=== PATIENT | female | born 1930 | race Caucasian/White ===

== ENCOUNTER 2017-07-26 16:02 | Inpatient (IN) ==
[2017-07-26] MEDS ORDERED: Ipratropium/Albuterol Neb 3 ML IH ONE (17:03)
--- NOTE | 2017-07-26 17:06 | Emergency Department Note ---
Disposition Clinical Impression: Hypoxia Pneumonia Qualifiers: Pneumonia type: due to unspecified organism Laterality: right Lung location: upper lobe of lung Qualified Code(s): J18.1 - Lobar pneumonia, unspecified organism Disposition: Admitted As Inpatient Condition: Fair Referrals: Otilia Coffey DO [Primary Care Provider] - Forms: ED Satisfaction Letter Time of Disposition: 18:09 SOB HPI - General Chief Complaint: ED Recheck/Abnormal Lab/Rx Stated Complaint: low o2 at pcp office Time Seen by Provider: 07/26/17 16:59 Source: patient Mode of arrival: wheelchair Limitations: no limitations Nursing Notes Reviewed: Yes Vital Signs Reviewed: Yes - History of Present Illness 87-year-old with no previous lung history although she does have a extensive smoking history comes in complaining of a low pulse ox. Seen by the family doctor for a routine visit and found to have a pulse ox in the 80s. Placed on oxygen sent over for evaluation. 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 Context: recent illness Severity: moderate Consistency/Duration: constant Improves with: oxygen Worsens with: exertion Associated symptoms: Reports: denies other symptoms Treatment prior to arrival: oxygen - Related Data Home Medications Medication Instructions Recorded Confirmed Ascorbic Acid [Vitamin C] 1,000 mg PO DAILY 08/27/15 07/09/17 Calcium Carbonate/Vitamin D3 1 each PO DAILY 08/27/15 07/09/17 [Calcium 600 + Vit D Softgel] LORazepam [Ativan] 1 mg PO Q6-8H PRN 08/27/15 07/09/17 Lisinopril [Zestril] 10 mg PO BID 08/27/15 07/09/17 Multivit-Min/FA/Lycopen/Lutein 1 each PO DAILY 08/27/15 07/09/17 [Centrum Silver Tablet] Polyethylene Glycol 3350 [MiraLAX] 17 gm PO DAILY PRN 08/27/15 07/09/17 Mirtazapine 7.5 mg PO HS 03/26/17 07/09/17 Clopidogrel [Plavix] 75 mg PO DAILY 05/01/17 07/09/17 Previous Rx's Medication Instructions Recorded Benzonatate [Tessalon] 100 mg PO TID PRN #90 capsule 07/09/17 Albuterol Sulfate [Albuterol 1 puff IH Q4HR #1 inhaler 11/14/17 Inhaler] Allergies Allergy/AdvReac Type Severity Reaction Status Date / Time acetaminophen [From Percocet] Allergy Agitated Verified 06/07/17 15:56 metronidazole [From Flagyl] Allergy Agitated Verified 06/07/17 15:56 Oxycodone [From Percocet] Allergy Agitated Verified 06/07/17 15:56 codeine AdvReac See Verified 06/07/17 15:56 Comments All systems ED: reviewed and negative except as stated. Constitutional: Denies: fever, chills, weakness, weight change Eyes: Denies: eye pain, eye discharge, vision change ENT ED: Denies: ear pain, throat pain, dental pain, hearing loss, epistaxis, congestion, dysphagia Cardiovascular: Denies: chest pain, palpitations, dyspnea on exertion, edema, syncope Respiratory: Reports: cough, dyspnea. Denies: wheezes, hemoptysis, stridor Gastrointestinal: Denies: abdominal pain, nausea, vomiting, diarrhea, constipation, hematemesis, melena, hematochezia Genitourinary: Denies: dysuria, frequency, hematuria, discharge Musculoskeletal: Denies: back pain, neck pain, arthralgia, myalgia Integumentary: Denies: rash, abrasion, lesions Neurological: Denies: headache, weakness, numbness, paresthesias, confusion, abnormal gait, vertigo Psychiatric: Denies: anxiety, depression, suicidal thoughts, homicidal thoughts , auditory hallucinations, visual hallucinations Endocrine: Denies: fatigue Hematological/Lymphatic: Denies: easy bleeding, easy bruising Allergic/Immunologic: Denies: facial swelling, urticaria Past Medical History - Past Medical History Medical history: Reports: cancer, diabetes, GERD, hypertension, peripheral artery disease, renal disease, other Surgical history: Reports: carotid endarterectomy, hip replacement Psychiatric history: Reports: anxiety - Social History Smoking Status: Never smoker Smokeless Tobacco Status: No Alcohol use: Reports: none Drug use: Reports: none Physical Exam - General Limitations: no limitations General appearance: alert, in no apparent distress - Head Head exam: atraumatic, normocephalic, normal inspection - Eye Eye exam: Present: normal appearance, PERRL, EOMI - ENT ENT exam: normal exam, normal oropharynx, mucous membranes moist - Neck Neck exam: Present: normal inspection, full ROM, trachea midline - Chest Chest inspection: Present: normal inspection, symmetric chest wall rise - Respiratory Respiratory exam: Present: wheezes - Cardiovascular Cardiovascular exam: Present: regular rate, normal rhythm, normal heart sounds - Abdominal Exam Abdominal exam: Present: soft, Non-Tender. Absent: tenderness, distention, guarding, rebound, rigidity - Extremities Exam Extremities exam: Present: normal inspection, full ROM. Absent: tenderness, pedal edema - Expanded Lower Extremity Exam Neurovascular/Tendon exam: Absent: motor deficit, sensory deficit, tendon deficit Gait: not tested/not observed - Back Exam Back exam: Present: normal inspection, full ROM. Absent: tenderness - Neurological Exam Neurological exam: Present: alert, oriented X3 - Psychiatric Psychiatric exam: Present: normal affect, normal mood - Skin Skin exam: Present: warm, dry, intact, normal color Course - Reevaluation(s) Reevaluation #1: 87-year-old who was seen in the office today was found to be hypoxic with a pulse ox in the mid 80s. Workup here included a chest x-ray that shows a right upper lobe infiltrate. Patient's pulse ox on 2 L was mid 90s. She will be admitted for further evaluation and treatment. Time: 18:08 - Consultations Consultation #1: Discussed with prakash Palmer. Time: 18:32 Vital Signs Temperature 98.7 F 07/26/17 16:06 Pulse Rate 90 07/26/17 16:06 Respiratory Rate 16 07/26/17 16:06 Blood Pressure 152/81 07/26/17 16:06 O2 Sat by Pulse Oximetry 100 07/26/17 16:06 Temperature 98.7 F 07/26/17 16:06 Pulse Rate 77 07/26/17 18:03 Respiratory Rate 14 07/26/17 18:03 Blood Pressure 129/84 07/26/17 18:03 O2 Sat by Pulse Oximetry 100 07/26/17 18:03 Oxygen Delivery Oxygen Delivery Nasal Cannula Shortness of Breath/Dyspnea - Lab Data Lab results reviewed: Yes I reviewed the patient's lab results. Result diagrams: 07/26/17 17:27 07/26/17 17:27 Lab Results 07/26/17 07/26/17 07/26/17 Range/Units 17:27 17:27 17:27 WBC 18.7 H (4.3-11.1) K/mcL RBC 3.60 L (3.82-4.97) M/mcL Hgb 9.3 L (11.5-15.4) g/dL Hct 31.3 L (35.3-44.9) % MCV 86.9 (83.0-100.0) fL MCH 25.8 L (28.0-33.3) pg MCHC 29.7 L (31.6-35.5) g/dL RDW 16.8 H (11.5-14.5) % Plt Count 431 H (140-400) K/mcL MPV 10.2 (9.4-12.4) fL Immature Gran % 1.3 (0-4) % Seg Neutrophils % 88.2 % Lymphocytes % 4.7 % Monocytes % 5.4 % Eosinophils % 0.2 % Basophils % 0.2 % Neutrophils # 16.5 H (1.6-8.9) K/mcL Lymphocytes # 0.9 (0.6-4.6) K/mcL Monocytes # 1.0 (0.0-1.3) K/mcL Eosinophils # 0.0 (0.0-0.6) K/mcL Basophils # 0.0 (0.0-0.2) K/mcL Sodium 138 (136-145) mEq/L Potassium 2.7 L (3.5-4.5) mEq/L Chloride 98 (98-109) mEq/L Carbon Dioxide 29 (19-29) mEq/L BUN 19 (7-20) mg/dL Creatinine 0.80 (0.57-1.11) mg/dL Est GFR ( Amer) > 60 (> 60) Est GFR (Non-Af Amer) > 60 (> 60) BUN/Creatinine Ratio 24 (6-26) Glucose 95 (70-99) mg/dL Calculated Osmolality 288 (280-300) Lactic Acid 1.9 (0.5-2.2) mmol/L Calcium 8.7 (8.6-10.8) mg/dL Troponin I (0-0.03) ng/mL B-Natriuretic Peptide (0-100) pg/mL 07/26/17 07/26/17 Range/Units 17:27 17:27 WBC (4.3-11.1) K/mcL RBC (3.82-4.97) M/mcL Hgb (11.5-15.4) g/dL Hct (35.3-44.9) % MCV (83.0-100.0) fL MCH (28.0-33.3) pg MCHC (31.6-35.5) g/dL RDW (11.5-14.5) % Plt Count (140-400) K/mcL MPV (9.4-12.4) fL Immature Gran % (0-4) % Seg Neutrophils % % Lymphocytes % % Monocytes % % Eosinophils % % Basophils % % Neutrophils # (1.6-8.9) K/mcL Lymphocytes # (0.6-4.6) K/mcL Monocytes # (0.0-1.3) K/mcL Eosinophils # (0.0-0.6) K/mcL Basophils # (0.0-0.2) K/mcL Sodium (136-145) mEq/L Potassium (3.5-4.5) mEq/L Chloride (98-109) mEq/L Carbon Dioxide (19-29) mEq/L BUN (7-20) mg/dL Creatinine (0.57-1.11) mg/dL Est GFR ( Amer) (> 60) Est GFR (Non-Af Amer) (> 60) BUN/Creatinine Ratio (6-26) Glucose (70-99) mg/dL Calculated Osmolality (280-300) Lactic Acid (0.5-2.2) mmol/L Calcium (8.6-10.8) mg/dL Troponin I 0.02 (0-0.03) ng/mL B-Natriuretic Peptide 423 H (0-100) pg/mL - Radiology Data Radiology results reviewed: Yes I reviewed the patient's radiology results. Chest X-Ray 07/26/17 16:21 IMPRESSION: Increased opacification in the right upper lobe suggesting an acute infiltrate. COPD with apical pleural-parenchymal fibrotic changes, right greater than left. D/ / Bret Rodriguez MD / Bret oRdriguez MD Interpreting Provider: Bret Rodriguez MD - EKG Data EKG attestation: Yes I reviewed and interpreted this EKG. EKG shows normal: Reports: sinus rhythm Rate: Reports: normal Rhythm: Reports: NSR, PAC's Interpretation: Reports: no acute changes
[2017-07-26 17:37] LABS: Basophils % 0.2 %; Eosinophils % 0.2 %; Hematocrit 31.3 % (35.3-44.9); Hemoglobin 9.3 g/dL (11.5-15.4); Immature Granulocytes % 1.3 % (0-4); Lymphocytes # 0.9 K/mcL (0.6-4.6); Lymphocytes % 4.7 %; Mean Corpuscular HGB Conc 29.7 g/dL (31.6-35.5); Mean Corpuscular Hemoglobin 25.8 pg (28.0-33.3); Mean Corpuscular Volume 86.9 fL (83.0-100.0); Mean Platelet Volume 10.2 fL (9.4-12.4); Monocytes % 5.4 %; Neutrophils # 16.5 K/mcL (1.6-8.9); Platelet Count 431 K/mcL (140-400); Red Cell Distribution Width 16.8 % (11.5-14.5); Segmented Neutrophils % 88.2 %
[2017-07-26 17:51] LABS: BUN/Creatinine Ratio 24 (6-26); Blood Urea Nitrogen 19 mg/dL (7-20); Calcium 8.7 mg/dL (8.6-10.8); Carbon Dioxide 29 mEq/L (19-29); Chloride 98 mEq/L (98-109); Glucose 95 mg/dL (70-99); Osmolality,Calculated 288 (280-300); Potassium 2.7 mEq/L (3.5-4.5); Sodium 138 mEq/L (136-145); eGFR For African Americans > 60 (> 60); eGFR For Non-African Americans > 60 (> 60)
[2017-07-26] MEDS ORDERED: Levofloxacin 750 MG/150 ML 750 MG/150 ML BAG IVPB ONE (18:07)
[2017-07-26] MEDS ORDERED: Naloxone 0.4 MG/ML INJ IVP PRN (20:25)
[2017-07-26] MEDS ORDERED: *HR* LORazepam 1 MG TABLET PO PRN (20:30)
[2017-07-26] MEDS ORDERED: *HR* LORazepam 2 MG/ML VIAL IVP ONE (20:31)
[2017-07-26] MEDS: Mirtazapine 15 MG TABLET PO SCH (20:56)
[2017-07-26] MEDS ORDERED: Acetaminophen 325 MG TABLET PO PRN (21:07)
[2017-07-26] MEDS: Acetaminophen 325 MG TABLET PO PRN (21:48)
[2017-07-26] MEDS ORDERED: Vancomycin 500 MG in D5% in Water 250 ML IVPB SCH (22:00)
[2017-07-26] MEDS: Benzonatate 100 MG CAPSULE PO PRN (22:03)
--- NOTE | 2017-07-26 22:15 | Internal Med History&Physical ---
<Sheldon Coelho J - Last Filed: 07/26/17 22:12> Date of Encounter: 07/26/17 Time of Encounter: 22:12 Assessment and Plan (1) Pneumonia Current visit: Yes Status: Acute Chest x-ray reveals increased opacification of right upper lobe with an acute infiltrate. Patient remains in mild respiratory distress, oxygen saturation 99 % improved with 2 L nasal cannula. Additionally, she is also anxious. Leukocytosis at 18.7, however she does not appear septic 0.5 mg IV push Ativan now Continuous telemetry, continuous O2 monitoring Sputum culture Vancomycin pharmacy to dose, Zosyn, Levaquin Due to risk for aspiration pneumonia Qualifiers: Pneumonia type: due to unspecified organism Laterality: right Lung location: upper lobe of lung Qualified Code(s): J18.1 - Lobar pneumonia, unspecified organism (2) Hypoxia Current visit: Yes Status: Acute Improved with nasal cannula. However remains slightly short of breath. No diagnosis of pneumonia. 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 Last treatment was in July 2016. 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 Rogers is a 87 year old female with PMH of right upper lobe lung cancer ( last treatment July 2016; continues to be followed by oncology), diabetes, GERD, PUD, hypertension. She presents today to [facility] from PCP. While at PCP appointment patient was found to be hypoxic with SPO2 80 's. She also admits that she is having ongoing cough for the last 2 weeks which is productive of yellow-green sputum. She mentions that she has had a couple of episodes of fine hemoptysis last couple of days she states that she was recently treated for pneumonia about 3 months ago feels like she has never recovered. Additionally, recent CAT scans reveal fluid in the esophagus at the level of the tova placing her at high risk for aspiration pneumonia. She denies any fever, chills, night sweats. Admits to fatigue, nausea and a 4 pound unintentional weight loss in the last 2 months. Past Med Surg Social Fam HX - Past Medical History Medical history: cancer, diabetes, GERD, hypertension, peripheral artery disease , renal disease, other Psychiatric history: anxiety - Past Surgical History Surgical History: carotid endarterectomy, hip replacement - Social History Smoking Status: Never smoker Smokeless Tobacco Status: No Alcohol use: none Drug use: none - Family History Mother Hx Family Neurologic Disorders: Yes (stroke) Internal Medicine - H&P: Meds Ascorbic Acid [Vitamin C] 1,000 mg PO DAILY 08/27/15 [History] Calcium Carbonate/Vitamin D3 [Calcium 600 + Vit D Softgel] 1 each PO DAILY 08/27 [History] LORazepam [Ativan] 1 mg PO Q6-8H PRN 08/27/15 [History] Lisinopril [Zestril] 10 mg PO QPM 08/27/15 [History] Multivit-Min/FA/Lycopen/Lutein [Centrum Silver Tablet] 1 each PO DAILY 08/27/15 [History] Mirtazapine 7.5 mg PO HS 03/26/17 [History] Clopidogrel [Plavix] 75 mg PO DAILY 05/01/17 [History] Benzonatate [Tessalon] 100 mg PO TID PRN #90 capsule 07/09/17 [Rx] Albuterol Sulfate [Albuterol Inhaler] 1 puff IH Q4HR PRN 07/26/17 [History] Guaifenesin [Mucinex] 600 mg PO Q12H PRN 07/26/17 [History] Lisinopril [Zestril] 20 mg PO QAM 07/26/17 [History] MethylPREDNISolone [MethylPREDNISolone Dose Pack] 4 mg PO PER PKG DI 07/26/17 [ History] 3 Allergy/AdvReac Type Severity Reaction Status Date / Time acetaminophen [From Percocet] Allergy Agitated Verified 06/07/17 15:56 metronidazole [From Flagyl] Allergy Agitated Verified 06/07/17 15:56 Oxycodone [From Percocet] Allergy Agitated Verified 06/07/17 15:56 codeine AdvReac See Verified 06/07/17 15:56 Comments All Systems PM: A 10-system review of systems was performed and is negative for pertinent findings except as documented above in the HPI. - Constitutional Constitutional: fatigue, weakness, weight loss, no chills, no fever(s), no night sweats - Cardiovascular Cardiovascular ROS IM: no chest pain, no diaphoresis, no dyspnea, no lightheadedness, no palpitations, no syncope - Respiratory Respiratory: cough, hemoptysis, chest congestion, excessive phlegm production, no dyspnea, no wheezing, no stridor, no pain on inspiration, no pain with cough - Gastrointestinal Gastrointestinal: nausea, no coffee ground emesis, no constipation, no diarrhea , no hematemesis, no hematochezia, no melena, no vomiting - Genitourinary Genitourinary: no dysuria, no flank pain - Musculoskeletal Musculoskeletal ROS IM: no numbness, no tingling - Integumentary Integumentary IM: no rash, no unusual bruising - Neurological Neurological ROS: no confusion, no convulsions, no focal weakness, no numbness, no tingling, no tremor(s) - Constitutional Vitals: Temp Pulse Resp BP Pulse Ox 98.9 F 91 17 115/63 92 07/26/17 19:39 07/26/17 19:39 07/26/17 19:39 07/26/17 19:39 07/26/17 19:39 General appearance: Present: cachectic, cooperative, mild distress, A&O X 3, answers questions appropriately - Respiratory Respiratory exam: Present: decreased breath sounds, CTAB. Absent: accessory muscle use, rales, rhonchi, wheezes - Cardiovascular Cardiovascular exam: Present: RRR, +S1, +S2. Absent: diastolic murmur, gallop, rubs, systolic murmur - GI/Abdominal GI/Abdominal exam: Present: normal bowel sounds, soft, no peritoneal signs. Absent: distended, tenderness - Extremities Exam Extremities exam: Present: warm, radial pulses palpable and symmetrical. Absent : calf tenderness, cyanotic, pedal edema - Neurological Exam Neurological exam: Present: oriented X3. Absent: pronater drift, facial droop, speech deficit - Skin Skin exam: Present: dry, intact Internal Med - H&P Results - Labs CBC & Chem 7: 07/26/17 17:27 07/26/17 17:27 - EKG Data -: EKG Interpreted by Myself EKG shows normal: sinus rhythm - EKG Data EKG comments: Sinus rhythm with PACs 07/26/17 22:18 - Diagnostic Studies Chest x-ray Status: image reviewed by me Additional comments: Increased opacification of the right upper lobe with acute infiltrates <Nick Garnica - Last Filed: 07/26/17 22:58> Date of Encounter: 07/26/17 Internal Medicine - H&P: HPI History of present illness: Ms. Rogers is a 87 year old female All Systems PM: A 10-system review of systems was performed and is negative for pertinent findings except as documented above in the HPI. - Constitutional Vitals: Temp Pulse Resp BP Pulse Ox 98.9 F 91 17 115/63 92 07/26/17 19:39 07/26/17 19:39 07/26/17 19:39 07/26/17 19:39 07/26/17 19:39 Internal Med - H&P Results - Labs CBC & Chem 7: 07/26/17 17:27 07/26/17 17:27 - Attending Attestation I have independently seen and examined this patient on 07/26/17 and discussed plan of care with DELMAR Coelho and the patient 87 F, seen and evaluated at bedside. She has a PMH of Lung CA on Rx, (last trrt about one year ago), Anxiety, HTN, COPD, Prior hx of heavy tobacco use She was referred from PCP's office for hypoxia, CXR shows RUL pneumonia Patient denies any complains at time of review Exam significant for cachexia, BMI 14, chest with RUL rhonchi and diminished air entry at the lung bases, no other significant finding Labs and Imaging reviewed A/P Pneumonia Acute hypoxemix Resp failure secondary to pneumonia Malnutrition possibly from cancer, and cachexia Hypokalemia-unknwon etiology , possibly nutritional COPDE Agree with plan, as documented in DELMAR Coelho's H/P
[2017-07-26] MEDS ORDERED: Vancomycin 500 MG in D5% in Water (Mini-Bag+) 100 ML IVPB SCH (23:00)
[2017-07-27] MEDS ORDERED: Vancomycin 500 MG in D5% in Water 250 ML IVPB SCH
[2017-07-27] MEDS: Piperacillin/Tazobactam 3.375 GM in D5% in Water 50 ML IVPB SCH ×2 (00:14→09:38)
[2017-07-27 04:29] LABS: Basophils % 0.2 %; Eosinophils % 0.3 %; Hemoglobin 8.1 g/dL (11.5-15.4); Immature Granulocytes % 1.2 % (0-4); Lymphocytes # 0.6 K/mcL (0.6-4.6); Lymphocytes % 3.9 %; Mean Corpuscular Hemoglobin 26.3 pg (28.0-33.3); Mean Corpuscular Volume 87.7 fL (83.0-100.0); Mean Platelet Volume 10.4 fL (9.4-12.4); Monocytes % 6.5 %; Neutrophils # 13.4 K/mcL (1.6-8.9); Platelet Count 414 K/mcL (140-400); Red Blood Count 3.08 M/mcL (3.82-4.97); Red Cell Distribution Width 16.7 % (11.5-14.5); Segmented Neutrophils % 87.9 %
[2017-07-27 04:44] LABS: Alanine Aminotransferase 20 Units/L (0-55); Albumin/Globulin Ratio 0.5 (1.1-2.2); Alkaline Phosphatase 117 Units/L (38-126); Aspartate Amino Transferase 25 Units/L (5-34); BUN/Creatinine Ratio 23 (6-26); Bilirubin,Total 0.3 mg/dL (0.2-1.2); Blood Urea Nitrogen 18 mg/dL (7-20); Calcium 8.3 mg/dL (8.6-10.8); Carbon Dioxide 29 mEq/L (19-29); Chloride 100 mEq/L (98-109); Globulin 3.7 g/dL (2.4-3.5); Glucose 78 mg/dL (70-99); Osmolality,Calculated 285 (280-300); Sodium 137 mEq/L (136-145); Total Protein 5.6 g/dL (6.0-8.3); eGFR For African Americans > 60 (> 60); eGFR For Non-African Americans > 60 (> 60)
[2017-07-27 04:45] LABS: Albumin 1.9 g/dL (3.5-5.0); Potassium 3.9 mEq/L (3.5-4.5)
[2017-07-27] MEDS: *HR* Heparin 5,000 UNIT/ML VIAL SQ SCH ×2 (05:47→16:23)
[2017-07-27] MEDS ORDERED: Levofloxacin 750 MG/150 ML 750 MG/150 ML BAG IVPB SCH (09:00)
[2017-07-27] MEDS: Lisinopril 20 MG TABLET PO SCH (09:38)
[2017-07-27] MEDS: Acetaminophen 325 MG TABLET PO PRN ×2 (13:20→22:52)
--- NOTE | 2017-07-27 15:04 | Internal Med Progress Note ---
Date of Encounter: 07/27/17 Time of Encounter: 15:03 - Assessment and plan (1) Acute respiratory failure with hypoxia Current Visit: Yes Status: Acute Assessment and plan: Due to pneumonia Improving off the O2 now cont close monitoring (2) Pneumonia Current Visit: Yes Status: Acute Assessment and plan: Reviewed the CXR Mostly bacterial Cont empirical abx Levofloxacin for atypical coverage since pt does not look that toxic / sick, will change abx to Cefepime only Qualifiers: Pneumonia type: due to unspecified organism Laterality: right Lung location: upper lobe of lung Qualified Code(s): J18.1 - Lobar pneumonia, unspecified organism (3) COPD exacerbation Current Visit: Yes Status: Acute Assessment and plan: Does have moderate wheezing mostly triggered by PNA will placed on her IV steroids at low dose cont duoneb (4) Anxiety Current Visit: Yes Status: Acute Assessment and plan: on ativan prn (5) Squamous cell carcinoma of right lung Current Visit: No Status: Chronic Assessment and plan: need to f/u with heme onc as an out pt (6) Protein-calorie malnutrition, severe Current Visit: Yes Status: Acute Assessment and plan: Reviewed her Serum protein, Albumin levels significantly low counseled about diet modifications buckler and lacer consulted (7) DVT prophylaxis Current Visit: Yes Status: Acute Assessment and plan: on SQ Lovenox - Subjective Interval history: Ms. Rogers is a 87 year old female with PMH of right upper lobe lung cancer ( last treatment July 2016; continues to be followed by oncology), diabetes, GERD, PUD, hypertension. She presents today to [facility] from PCP. While at PCP appointment patient was found to be hypoxic with SPO2 80 's. She also admits that she is having ongoing cough for the last 2 weeks which is productive of yellow-green sputum. She was admitted in the hospital for RUL CAP. She was placed on empirical abx and duoneb. She stated she is feeling little better today. Off the O2. Breathing comfortably on RA. - Constitutional Vitals: Temp Pulse Resp BP Pulse Ox 98.3 F 87 17 127/78 97 07/27/17 11:40 07/27/17 11:40 07/27/17 11:40 07/27/17 11:40 07/27/17 11:40 General appearance: Present: cachectic, cooperative, A&O X 3, answers questions appropriately - Head Head exam: Present: atraumatic, normal inspection - Neck Neck exam general surgery: Present: supple - Respiratory Respiratory exam: Present: decreased breath sounds, wheezes (moderate). Absent : rales, respiratory distress, rhonchi - Cardiovascular Cardiovascular exam: Present: RRR, +S1, +S2. Absent: systolic murmur - GI/Abdominal GI/Abdominal exam: Present: normal bowel sounds, soft. Absent: rebound, rigid, tenderness - Extremities Exam Extremities exam: Absent: calf tenderness, pedal edema, tenderness - Back Exam Back exam: Absent: CVA tenderness (L), CVA tenderness (R) - Neurological Exam Neurological exam: Present: alert, oriented X3 - Psychiatric Psychiatric exam: Present: normal affect, normal mood Internal Medicine: Result - Labs CBC & Chem 7: 07/27/17 03:46 07/27/17 03:46 Labs: Short CBC 07/27/17 Range/Units 03:46 WBC 15.2 H (4.3-11.1) K/mcL Hgb 8.1 L (11.5-15.4) g/dL Hct 27.0 L (35.3-44.9) % Plt Count 414 H (140-400) K/mcL Neutrophils # 13.4 H (1.6-8.9) K/mcL BMP 07/27/17 03:46 Sodium 137 Potassium 3.9 D Chloride 100 Carbon Dioxide 29 BUN 18 Creatinine 0.77 Glucose 78 Calcium 8.3 L Cardiac Enzymes 07/26/17 Range/Units 23:02 Troponin I 0.02 (0-0.03) ng/mL Liver Function 07/27/17 Range/Units 03:46 Total Bilirubin 0.3 (0.2-1.2) mg/dL AST 25 (5-34) Units/L ALT 20 (0-55) Units/L Alkaline Phosphatase 117 (38-126) Units/L Albumin 1.9 L (3.5-5.0) g/dL Consult Discharge Plan - Plan Referrals: Otilia Coffey DO [Primary Care Provider] -
[2017-07-27] MEDS: MethylPREDNISolone 40 MG/ML VIAL IVP SCH (16:22)
[2017-07-27] MEDS: Cefepime HCl 1,000 MG in Water for inj. (sterile) 10 ML IVP SCH (16:22)
[2017-07-27] MEDS ORDERED: Cefepime HCl 1,000 MG in D5% in Water (Mini-Bag+) 100 ML IVPB SCH (18:00)
--- NOTE | 2017-07-27 18:13 | Electrocardiograph Report ---
[place] [id number] Test Date: 2017-07-26 Pat Name: Sherly Rogers Department: 104 Room: 2A Gender: F [employer] Operator: SARAH : 1930 Requested By: Marco Kirkpatrick Order Number: [id number] Reading MD: Adonis Madison MD Measurements Intervals [place] Rate: 92 P: 83 KS: 137 QRS: 64 QRSD: 66 T: 63 QT: 348 QTc: 398 Interpretive Statements SINUS RHYTHM WITH FREQUENT SUPRAVENTRICULAR PREMATURE COMPLEXES BASELINE ARTIFACT COMPLICATES ACCURATE INTERPRETATION Electronically Signed On 07-27-2017 18:12:23 EST by Adonis Madison MD
--- NOTE | 2017-07-27 18:14 | Electrocardiograph Report ---
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
[2017-07-27] MEDS: Benzonatate 100 MG CAPSULE PO PRN (18:48)
[2017-07-27] MEDS: Mirtazapine 15 MG TABLET PO SCH (20:12)
[2017-07-28 05:09] LABS: Basophils % 0.1 %; Hematocrit 30.8 % (35.3-44.9); Hemoglobin 9.1 g/dL (11.5-15.4); Immature Granulocytes % 1.2 % (0-4); Lymphocytes # 0.9 K/mcL (0.6-4.6); Lymphocytes % 5.3 %; Mean Corpuscular HGB Conc 29.5 g/dL (31.6-35.5); Mean Corpuscular Hemoglobin 25.7 pg (28.0-33.3); Mean Platelet Volume 10.7 fL (9.4-12.4); Monocytes # 0.6 K/mcL (0.0-1.3); Monocytes % 3.5 %; Neutrophils # 14.7 K/mcL (1.6-8.9); Platelet Count 416 K/mcL (140-400); Red Blood Count 3.54 M/mcL (3.82-4.97); Red Cell Distribution Width 16.9 % (11.5-14.5); Segmented Neutrophils % 89.9 %
[2017-07-28] MEDS: *HR* Heparin 5,000 UNIT/ML VIAL SQ SCH ×2 (05:20→18:15)
[2017-07-28] MEDS: MethylPREDNISolone 40 MG/ML VIAL IVP SCH ×2 (05:21→18:15)
[2017-07-28] MEDS: Cefepime HCl 1,000 MG in Water for inj. (sterile) 10 ML IVP SCH ×2 (05:22→18:15)
[2017-07-28 05:32] LABS: BUN/Creatinine Ratio 26 (6-26); Blood Urea Nitrogen 21 mg/dL (7-20); Calcium 8.9 mg/dL (8.6-10.8); Carbon Dioxide 26 mEq/L (19-29); Chloride 104 mEq/L (98-109); Glucose 106 mg/dL (70-99); Osmolality,Calculated 289 (280-300); Potassium 4.2 mEq/L (3.5-4.5); Sodium 138 mEq/L (136-145); eGFR For African Americans > 60 (> 60); eGFR For Non-African Americans > 60 (> 60)
[2017-07-28] MEDS: Lisinopril 20 MG TABLET PO SCH (05:41)
[2017-07-28] MEDS ORDERED: Aminoglycoside Consult 1 EACH MC ONE (07:51)
[2017-07-28] MEDS: Benzonatate 100 MG CAPSULE PO PRN (15:02)
--- NOTE | 2017-07-28 15:29 | Internal Med Progress Note ---
Date of Encounter: 07/28/17 Time of Encounter: 15:31 - Assessment and plan (1) Acute respiratory failure with hypoxia Current Visit: Yes Status: Acute Assessment and plan: Due to pneumonia Improving off the O2 now cont close monitoring (2) Pneumonia Current Visit: Yes Status: Acute Assessment and plan: Reviewed the CXR Mostly bacterial Cont empirical abx Levofloxacin for atypical coverage cont empirical Cefepime only Qualifiers: Pneumonia type: due to unspecified organism Laterality: right Lung location: upper lobe of lung Qualified Code(s): J18.1 - Lobar pneumonia, unspecified organism (3) COPD exacerbation Current Visit: Yes Status: Acute Assessment and plan: Does have moderate wheezing mostly triggered by PNA improving cont IV steroids at low dose cont duoneb (4) Anxiety Current Visit: Yes Status: Acute Assessment and plan: on ativan prn (5) Squamous cell carcinoma of right lung Current Visit: No Status: Chronic Assessment and plan: need to f/u with heme onc as an out pt (6) Protein-calorie malnutrition, severe Current Visit: Yes Status: Acute Assessment and plan: Reviewed her Serum protein, Albumin levels significantly low prealbumin counseled about diet modifications on Ensure with each meal critical power technician consulted (7) DVT prophylaxis Current Visit: Yes Status: Acute Assessment and plan: on SQ Lovenox - Subjective Interval history: Ms. Rogers is a 87 year old female with PMH of right upper lobe lung cancer ( last treatment July 2016; continues to be followed by oncology), diabetes, GERD, PUD, hypertension. She presents today to [facility] from PCP. While at PCP appointment patient was found to be hypoxic with SPO2 80 's. She also admits that she is having ongoing cough for the last 2 weeks which is productive of yellow-green sputum. She was admitted in the hospital for RUL CAP. She was placed on empirical abx and duoneb. She stated she is feeling little better today. Off the O2. Breathing comfortably on RA. No events over night. Feeling little better today - Constitutional Vitals: Temp Pulse Resp BP Pulse Ox 97.8 F 89 22 134/78 94 07/28/17 11:39 07/28/17 11:39 07/28/17 11:39 07/28/17 11:39 07/28/17 11:39 General appearance: Present: cachectic, cooperative, A&O X 3, answers questions appropriately - Head Head exam: Present: atraumatic, normal inspection - Neck Neck exam general surgery: Present: supple - Respiratory Respiratory exam: Present: decreased breath sounds, wheezes (mild). Absent: rales, respiratory distress, rhonchi - Cardiovascular Cardiovascular exam: Present: RRR, +S1, +S2. Absent: systolic murmur - GI/Abdominal GI/Abdominal exam: Present: normal bowel sounds, soft. Absent: rebound, rigid, tenderness - Extremities Exam Extremities exam: Absent: calf tenderness, pedal edema, tenderness - Back Exam Back exam: Absent: CVA tenderness (L), CVA tenderness (R) - Neurological Exam Neurological exam: Present: alert, oriented X3 - Psychiatric Psychiatric exam: Present: normal affect, normal mood Internal Medicine: Result - Labs CBC & Chem 7: 07/28/17 04:30 07/28/17 04:30 Labs: Short CBC 07/28/17 Range/Units 04:30 WBC 16.4 H (4.3-11.1) K/mcL Hgb 9.1 L (11.5-15.4) g/dL Hct 30.8 L (35.3-44.9) % Plt Count 416 H (140-400) K/mcL Neutrophils # 14.7 H (1.6-8.9) K/mcL BMP 07/28/17 04:30 Sodium 138 Potassium 4.2 Chloride 104 Carbon Dioxide 26 BUN 21 H Creatinine 0.80 Glucose 106 H Calcium 8.9 Consult Discharge Plan - Plan Referrals: Otilia Coffey DO [Primary Care Provider] -
[2017-07-28] MEDS ORDERED: Levofloxacin 750 MG/150 ML 750 MG/150 ML BAG IVPB SCH (18:00)
[2017-07-28] MEDS: Mirtazapine 15 MG TABLET PO SCH (21:07)
[2017-07-28] MEDS: Acetaminophen 325 MG TABLET PO PRN (22:03)
[2017-07-29] MEDS: Ondansetron 4 MG/2 ML VIAL IVP PRN ×2 (01:11→20:02)
[2017-07-29 04:42] LABS: Basophils % 0.2 %; Hemoglobin 8.8 g/dL (11.5-15.4); Immature Granulocytes % 1.8 % (0-4); Lymphocytes # 0.8 K/mcL (0.6-4.6); Mean Corpuscular HGB Conc 29.3 g/dL (31.6-35.5); Mean Corpuscular Hemoglobin 25.7 pg (28.0-33.3); Mean Corpuscular Volume 87.5 fL (83.0-100.0); Mean Platelet Volume 10.4 fL (9.4-12.4); Monocytes # 0.7 K/mcL (0.0-1.3); Monocytes % 3.5 %; Neutrophils # 17.8 K/mcL (1.6-8.9); Platelet Count 441 K/mcL (140-400); Red Blood Count 3.43 M/mcL (3.82-4.97); Red Cell Distribution Width 17.2 % (11.5-14.5); Segmented Neutrophils % 90.5 %
[2017-07-29] MEDS: *HR* Heparin 5,000 UNIT/ML VIAL SQ SCH ×2 (05:26→17:48)
[2017-07-29] MEDS: Cefepime HCl 1,000 MG in Water for inj. (sterile) 10 ML IVP SCH ×2 (05:26→17:48)
[2017-07-29] MEDS: MethylPREDNISolone 40 MG/ML VIAL IVP SCH (05:26)
[2017-07-29] MEDS: Lisinopril 20 MG TABLET PO SCH (09:59)
--- NOTE | 2017-07-29 10:18 | Internal Med Progress Note ---
Date of Encounter: 07/29/17 Time of Encounter: 10:15 - Assessment and plan (1) Acute respiratory failure with hypoxia Current Visit: Yes Status: Acute Assessment and plan: Due to pneumonia Improving off the O2 now cont close monitoring (2) Pneumonia Current Visit: Yes Status: Acute Assessment and plan: Improving Mostly bacterial Still has elevated WBC due to steroids + reactive Cont empirical abx Levofloxacin for atypical coverage and Cefepime only Qualifiers: Pneumonia type: due to unspecified organism Laterality: right Lung location: upper lobe of lung Qualified Code(s): J18.1 - Lobar pneumonia, unspecified organism (3) Leukocytosis Current Visit: Yes Status: Acute Assessment and plan: still elevated mostly reactive and steroids Qualifiers: Qualified Code(s): D72.829 - Elevated white blood cell count, unspecified (4) COPD exacerbation Current Visit: Yes Status: Acute Assessment and plan: Does have moderate wheezing mostly triggered by PNA improving switch to PO steroids and start tapering steroids cont duoneb (5) Anxiety Current Visit: Yes Status: Acute Assessment and plan: on ativan prn (6) Squamous cell carcinoma of right lung Current Visit: No Status: Chronic Assessment and plan: need to f/u with heme onc as an out pt (7) Protein-calorie malnutrition, severe Current Visit: Yes Status: Acute Assessment and plan: Reviewed her Serum protein, Albumin levels significantly low prealbumin counseled about diet modifications on Ensure with each meal site supervisor consulted (8) DVT prophylaxis Current Visit: Yes Status: Acute Assessment and plan: on SQ Lovenox - Subjective Interval history: Ms. Rogers is a 87 year old female with PMH of right upper lobe lung cancer ( last treatment July 2016; continues to be followed by oncology), diabetes, GERD, PUD, hypertension. She presents today to [facility] from PCP. While at PCP appointment patient was found to be hypoxic with SPO2 80 's. She also admits that she is having ongoing cough for the last 2 weeks which is productive of yellow-green sputum. She was admitted in the hospital for RUL CAP. She was placed on empirical abx and duoneb. She stated she is feeling little better today. Off the O2. Breathing comfortably on RA. No events over night. Feeling little better today. Denied any CP. Does not feel comfortable to go home today - Constitutional Vitals: Temp Pulse Resp BP Pulse Ox 98.1 F 70 21 155/79 94 07/29/17 09:58 07/29/17 09:58 07/29/17 09:58 07/29/17 09:58 07/29/17 09:58 General appearance: Present: cachectic, cooperative, A&O X 3, answers questions appropriately - Head Head exam: Present: atraumatic, normal inspection - Neck Neck exam general surgery: Present: supple - Respiratory Respiratory exam: Present: decreased breath sounds, wheezes (mild). Absent: rales, respiratory distress, rhonchi - Cardiovascular Cardiovascular exam: Present: RRR, +S1, +S2. Absent: systolic murmur - GI/Abdominal GI/Abdominal exam: Present: soft. Absent: rebound, rigid, tenderness - Extremities Exam Extremities exam: Absent: calf tenderness, pedal edema, tenderness - Neurological Exam Neurological exam: Present: alert, oriented X3 - Psychiatric Psychiatric exam: Present: normal affect, normal mood Internal Medicine: Result - Labs CBC & Chem 7: 07/29/17 04:13 07/28/17 04:30 Labs: Short CBC 07/29/17 Range/Units 04:13 WBC 19.7 H (4.3-11.1) K/mcL Hgb 8.8 L (11.5-15.4) g/dL Hct 30.0 L (35.3-44.9) % Plt Count 441 H (140-400) K/mcL Neutrophils # 17.8 H (1.6-8.9) K/mcL Consult Discharge Plan - Plan Referrals: Otilia Coffey DO [Primary Care Provider] - (WEB REQUEST SENT ON 07/29/17)
[2017-07-29] MEDS: Acetaminophen 325 MG TABLET PO PRN ×2 (15:18→20:03)
[2017-07-29] MEDS ORDERED: Simethicone 80 MG TAB.CHEW PO PRN (18:26)
[2017-07-29] MEDS: Mirtazapine 15 MG TABLET PO SCH (20:01)
[2017-07-29] MEDS ORDERED: Acetaminophen 325 MG TABLET PO ONE (23:04)
[2017-07-29] MEDS ORDERED: Acetaminophen 325 MG TABLET PO PRN (23:04)
[2017-07-30] MEDS: Cefepime HCl 1,000 MG in Water for inj. (sterile) 10 ML IVP SCH (06:12)
[2017-07-30] MEDS: *HR* Heparin 5,000 UNIT/ML VIAL SQ SCH (06:12)
[2017-07-30] MEDS ORDERED: predniSONE 20 MG TABLET PO SCH (09:00)
[2017-07-30] MEDS: Lisinopril 20 MG TABLET PO SCH (10:21)
--- NOTE | 2017-07-30 10:56 | Discharge Summary ---
Date of Encounter: 07/30/17 Time of Encounter: 10:00 - Discharge Diagnosis (1) Acute respiratory failure with hypoxia Priority: Primary Status: Acute (2) Pneumonia Priority: Primary Status: Acute Qualifiers: Pneumonia type: due to unspecified organism Laterality: right Lung location: upper lobe of lung Qualified Code(s): J18.1 - Lobar pneumonia, unspecified organism (3) Leukocytosis Priority: Primary Status: Acute Qualifiers: Qualified Code(s): D72.829 - Elevated white blood cell count, unspecified (4) COPD exacerbation Priority: Secondary Status: Acute (5) Anxiety Priority: Secondary Status: Acute (6) Squamous cell carcinoma of right lung Priority: Secondary Status: Chronic (7) Protein-calorie malnutrition, severe Priority: Secondary Status: Acute (8) DVT prophylaxis Priority: Secondary Status: Acute - Discharge Medications Prescriptions: amLODIPine [Norvasc] 5 mg PO DAILY #30 tablet levoFLOXacin [Levofloxacin] 500 mg PO DAILY #3 tablet Lisinopril [Zestril] 20 mg PO BID #60 tablet predniSONE [PredniSONE] 40 mg PO DAILY #10 tablet Home Medications: Ascorbic Acid [Vitamin C] 1,000 mg PO DAILY 08/27/15 [History] Calcium Carbonate/Vitamin D3 [Calcium 600 + Vit D Softgel] 1 each PO DAILY 08/27 [History] LORazepam [Ativan] 1 mg PO Q6-8H PRN 08/27/15 [History] Multivit-Min/FA/Lycopen/Lutein [Centrum Silver Tablet] 1 each PO DAILY 08/27/15 [History] Mirtazapine 7.5 mg PO HS 03/26/17 [History] Clopidogrel [Plavix] 75 mg PO DAILY 05/01/17 [History] Benzonatate [Tessalon] 100 mg PO TID PRN #90 capsule 07/09/17 [Rx] Guaifenesin [Mucinex] 600 mg PO Q12H PRN 07/26/17 [History] Albuterol Sulfate [Albuterol Inhaler] 2 puff IH Q4HR PRN #0 07/30/17 [Rx] Lisinopril [Zestril] 20 mg PO BID #60 tablet 07/30/17 [Rx] amLODIPine [Norvasc] 5 mg PO DAILY #30 tablet 07/30/17 [Rx] levoFLOXacin [Levofloxacin] 500 mg PO DAILY #3 tablet 07/30/17 [Rx] predniSONE [PredniSONE] 40 mg PO DAILY #10 tablet 07/30/17 [Rx] Allergies/Adverse Reactions: 3 Allergy/AdvReac Type Severity Reaction Status Date / Time metronidazole [From Flagyl] Allergy Agitated Verified 06/07/17 15:56 Oxycodone [From Percocet] Allergy Agitated Verified 06/07/17 15:56 codeine AdvReac See Verified 06/07/17 15:56 Comments Date of admission: 07/26/17 22:26 Primary care physician: Otilia Coffey DO Consults: 07/29/17 10:14 Consult to Occupational Therapy [CONS] Routine Comment: Evaluate, develop and implement POC Reason for Consult: weakness Consult to Physical Therapy [CONS] Routine Comment: Evaluate, develop and implement POC Reason for Consult: weakness - Patient Status Disposition: Home, Self-Care Condition: Good Overall status at discharge: patient is back to baseline - Discharge Instructions Instructions: Malnutrition (GEN) Follow Up With: Otilia Coffey DO [Primary Care Provider] - (WEB REQUEST SENT ON 07/29/17) - Diet and Activity Activity: increase activity as tolerated Hospital course: Ms. Rogers is a 87 year old female with PMH of right upper lobe lung cancer ( last treatment July 2016; continues to be followed by oncology), diabetes, GERD, PUD, hypertension. She presents today to [facility] from PCP. While at PCP appointment patient was found to be hypoxic with SPO2 80 's. She also admits that she is having ongoing cough for the last 2 weeks which is productive of yellow-green sputum. She was admitted in the hospital for RUL CAP. She was started on empirical abx Cefepime + Levaquin. Also placed on high dose IV steroids initially. Her symptoms started improving slowly. She is off the O2 from last 2 days and breathing comfortably in RA. She is tolerating PO intake well. She does have elevated WBC - mostly reactive and steroid induced. She remained afebrile through out this hospitalization. Her BP slightly elevated so inc her home med Lisinopril to 20mg BID and added low dose Norvasc at 5mg. Will d/c her home in stable condition and recommend to f/u with PCP in one week. She does have severe protein caloric malnutrition with pre albumin level 7. Pt was evaluated by out community resource consultant recommend high caloric intake. counseled the pt about this. - Time Spent with Patient Total time spent providing and/or coordinating discharge services: - Constitutional Vitals: Temp Pulse Resp BP Pulse Ox 98.6 F 88 16 164/76 96 07/30/17 07:12 07/30/17 07:12 07/30/17 07:12 07/30/17 07:12 07/30/17 07:12 General appearance: Present: cachectic, cooperative, A&O X 3, no acute distress , answers questions appropriately - Head Head exam: Present: atraumatic, normal inspection - Neck Neck exam general surgery: Present: supple - Respiratory Respiratory exam: Present: decreased breath sounds. Absent: rales, respiratory distress, rhonchi, wheezes - Cardiovascular Cardiovascular exam: Present: RRR, +S1, +S2. Absent: systolic murmur, tachycardia - GI/Abdominal GI/Abdominal exam: Present: soft. Absent: rebound, rigid, tenderness - Extremities Exam Extremities exam: Absent: calf tenderness, pedal edema, tenderness - Neurological Exam Neurological exam: Present: alert, oriented X3 - Psychiatric Psychiatric exam: Present: normal affect, normal mood
[2017-07-30 10:58] VITALS: BP 114/69
[2017-07-30] MEDS ORDERED: FLUARIX QUAD 2017-18 36MOS UP/PF 0.5 ML SYRINGE IM ONE (11:36)
== END 2017-07-30 14:52 | disposition home or self-care (01) | DRG 193 ==
LOC: EMEROO 16:02 → 2ANU 16:02
PROVIDERS: ADMIT Nurse Practitioner Family; ATTEND Family Medicine

== ENCOUNTER 2017-09-06 15:18 | Inpatient (IN) ==
[2017-09-06] MEDS ORDERED: 0.9 % Sodium Chloride 1,000 ML IVC ONE (15:52)
--- NOTE | 2017-09-06 16:07 | Emergency Department Note ---
Disposition Clinical Impression: Mass of upper lobe of right lung, Postobstructive pneumonia Disposition: Admitted As Inpatient Condition: Fair Referrals: Otilia Coffey DO [Primary Care Provider] - Forms: ED Satisfaction Letter Fever HPI - General Chief Complaint: ED Fever Stated Complaint: Fever, chills Time Seen by Provider: 09/06/17 15:28 Source: patient, family Mode of arrival: private vehicle Limitations: no limitations Nursing Notes Reviewed: Yes Vital Signs Reviewed: Yes - History of Present Illness HPI Narrative: 79-year-old female presents to the ER with a chief complaint of fever and cough for 2 weeks in duration. Reports she was hospitalized last month for pneumonia and did improve somewhat and started to decline. States she has had fevers at home and her minimally for the last 2 weeks up to 102. Also reports chills in the evening. She does states she has had a 5 pound weight loss over the last month unintentionally. Reports nonproductive cough. No chest pain. No nausea vomiting or diarrhea. No other complaints. Pt Subjective Complaint: fever, other (cough) Onset (ago): week(s) Maximum Temperature Reported: 102 F Temperature Source: oral Associated symptoms: Reports: chills, rigors, cough. Denies: sore throat, vomiting, diarrhea Improves with: nothing Worsens with: nothing Treatments prior to arrival fever: none - Related Data Home Medications Medication Instructions Recorded Confirmed Ascorbic Acid [Vitamin C] 1,000 mg PO DAILY 08/27/15 09/06/17 Calcium Carbonate/Vitamin D3 1 each PO DAILY 08/27/15 09/06/17 [Calcium 600 + Vit D Softgel] LORazepam [Ativan] 1 mg PO Q6-8H PRN 08/27/15 09/06/17 Multivit-Min/FA/Lycopen/Lutein 1 each PO DAILY 08/27/15 09/06/17 [Centrum Silver Tablet] Mirtazapine 7.5 mg PO HS 03/26/17 09/06/17 Clopidogrel [Plavix] 75 mg PO DAILY 05/01/17 09/06/17 Ipratropium/Albuterol Neb [Duoneb] 3 ml IH Q2H PRN 09/06/17 09/06/17 Ipratropium/Albuterol Neb [Duoneb] 3 ml IH QID 09/06/17 09/06/17 Lisinopril [Zestril] 10 mg PO QPM 09/06/17 09/06/17 Lisinopril [Zestril] 20 mg PO QAM 09/06/17 09/06/17 Omeprazole [PriLOSEC] 40 mg PO DAILY 09/06/17 09/06/17 Previous Rx's Medication Instructions Recorded Benzonatate [Tessalon] 100 mg PO TID PRN #90 capsule 07/09/17 Albuterol Sulfate [Albuterol 2 puff IH Q4HR PRN #0 07/30/17 Inhaler] amLODIPine [Norvasc] 5 mg PO DAILY #30 tablet 07/30/17 Allergies Allergy/AdvReac Type Severity Reaction Status Date / Time metronidazole [From Flagyl] Allergy Agitated Verified 08/28/17 16:47 Oxycodone [From Percocet] Allergy Agitated Verified 08/28/17 16:47 codeine AdvReac See Verified 08/28/17 16:47 Comments All systems ED: reviewed and negative except as stated. Constitutional: Reports: fever, chills Cardiovascular: Denies: chest pain Respiratory: Reports: cough. Denies: dyspnea Gastrointestinal: Denies: abdominal pain, vomiting, diarrhea Fever PMH - Past Medical History Medical history: Reports: cancer, diabetes, GERD, hypertension, peripheral artery disease, renal disease, other Surgical history: Reports: carotid endarterectomy, hip replacement Psychiatric history: Reports: anxiety - Social History Smoking Status: Never smoker Alcohol use: Reports: none Drug use: Reports: none Physical Exam - General Limitations: no limitations General appearance: alert, in no apparent distress - Head Head exam: atraumatic, normocephalic - Eye Eye exam: Present: normal appearance - ENT ENT exam: normal exam - Neck Neck exam: Present: normal inspection, full ROM - Chest Chest inspection: Present: normal inspection, symmetric chest wall rise - Respiratory Respiratory exam: Present: normal lung sounds bilaterally - Cardiovascular Cardiovascular exam: Present: regular rate, normal rhythm, normal heart sounds - Abdominal Exam Abdominal exam: Present: soft, Non-Tender. Absent: tenderness - Extremities Exam Extremities exam: Present: normal inspection, full ROM - Expanded Upper Extremity Exam Shoulder exam: Present: normal inspection, full ROM Arm exam: Present: normal inspection, full ROM Elbow exam: Present: normal inspection, full ROM Forearm/Wrist exam: Present: normal inspection, full ROM Hand exam: Present: normal inspection, full ROM - Expanded Lower Extremity Exam Hip/Pelvis exam: Present: normal inspection, full ROM Upper leg exam: Present: normal inspection, full ROM Knee exam: Present: normal inspection, full ROM Lower leg exam: Present: normal inspection, full ROM Ankle exam: Present: normal inspection, full ROM Foot/toe exam: Present: normal inspection, full ROM - Neurological Exam Neurological exam: Present: alert, other (GCS 15. Nonfocal.) - Psychiatric Psychiatric exam: Present: normal affect - Skin Skin exam: Present: warm, dry Course Course Narrative: Patient seen and examined. Vital signs reviewed. We will obtain a chest x- ray as well as labs including urinalysis. Patient given IV fluids with reassessment. - Reevaluation(s) Reevaluation #1: I discussed results of chest x-ray and labs the patient. She understands the need for CT imaging and is agreeable. Reevaluation #2: I discussed results of the CT with the patient. There is concern for recurrence of her mass as well as a likely postobstructive pneumonia. Patient given vancomycin and Zosyn and Levaquin. Admitted to the hospitalist service. Vital Signs Temperature 99.8 F H 09/06/17 15:23 Pulse Rate 89 09/06/17 15:23 Respiratory Rate 18 09/06/17 15:23 Blood Pressure 140/81 09/06/17 15:23 O2 Sat by Pulse Oximetry 100 09/06/17 15:23 Temperature 100.3 F H 09/06/17 19:13 Pulse Rate 100 09/06/17 19:13 Respiratory Rate 20 09/06/17 19:13 Blood Pressure 137/90 09/06/17 19:13 O2 Sat by Pulse Oximetry 98 09/06/17 19:13 Oxygen Delivery Oxygen Delivery Nasal Cannula Fever - MDM Narrative Medical decision making narrative: 87-year-old female presents to the ER due to cough, fever, chills and weight loss weeks. Recently treated for pneumonia as an inpatient. Reports intermittent symptoms since that time. Noted to be febrile here. X-ray with concern for a loculated right upper lobe effusion. CT scan demonstrates a likely recurrence of her mass as well as pneumonia. Patient treated for healthcare associated pneumonia. Admitted to the hospitalist service. - Lab Data Lab results reviewed: Yes I reviewed the patient's lab results. Result diagrams: 09/06/17 17:01 09/06/17 17:01 Lab Results 09/06/17 09/06/17 09/06/17 Range/Units 16:08 17:01 17:01 WBC 24.8 H (4.3-11.1) K/mcL RBC 3.29 L (3.82-4.97) M/mcL Hgb 8.6 L (11.5-15.4) g/dL Hct 29.1 L (35.3-44.9) % MCV 88.4 (83.0-100.0) fL MCH 26.1 L (28.0-33.3) pg MCHC 29.6 L (31.6-35.5) g/dL RDW 17.6 H (11.5-14.5) % Plt Count 470 H (140-400) K/mcL MPV 10.1 (9.4-12.4) fL Immature Gran % 2.5 (0-4) % Seg Neutrophils % 87.9 % Lymphocytes % 3.3 % Monocytes % 6.0 % Eosinophils % 0.1 % Basophils % 0.2 % Neutrophils # 21.8 H (1.6-8.9) K/mcL Lymphocytes # 0.8 (0.6-4.6) K/mcL Monocytes # 1.5 H (0.0-1.3) K/mcL Eosinophils # 0.0 (0.0-0.6) K/mcL Basophils # 0.1 (0.0-0.2) K/mcL Sodium 137 (136-145) mEq/L Potassium 3.8 (3.5-5.1) mEq/L Chloride 106 (98-107) mEq/L Carbon Dioxide 19 L (23-29) mEq/L BUN 23 (8-23) mg/dL Creatinine 0.71 (0.60-1.20) mg/dL Est GFR ( Amer) > 60 (> 60) Est GFR (Non-Af Amer) > 60 (> 60) BUN/Creatinine Ratio 32 H (6-26) Glucose 84 (70-105) mg/dL Calculated Osmolality 287 (280-300) Lactic Acid (0.5-2.2) mmol/L Calcium 8.4 L (8.6-10.3) mg/dL TSH (0.340-5.600) mcIU/mL Urine Color Yellow (Yellow) Urine Clarity Cloudy A (Clear) Urine pH 6.0 (5.0-8.0) pH Units Ur Specific [place] 1.026 H (1.010-1.025) Urine Protein 30 H (Neg-Trace) mg/dL Urine Glucose (UA) Normal (Normal) mg/dL Urine Ketones Negative (Negative) mg/dL Urine Blood Negative (Negative) Urine Nitrite Negative (Negative) Urine Bilirubin Negative (Negative) Urine Urobilinogen Normal (Normal) mg/dL Ur Leukocyte Esterase Small H (Negative) Urine Microscopic RBC 5-15 H (0-3) per hpf Urine Microscopic WBC 30-50 H (0-3) per hpf Ur Squamous Epith Cells Many H (None-Few) per lpf Urine Bacteria None Seen (None-Few) per hpf Hyaline Casts Moderate H (None-Few) per lpf Ur Culture Indicated? NO (NO) 09/06/17 09/06/17 Range/Units 17:01 18:02 WBC (4.3-11.1) K/mcL RBC (3.82-4.97) M/mcL Hgb (11.5-15.4) g/dL Hct (35.3-44.9) % MCV (83.0-100.0) fL MCH (28.0-33.3) pg MCHC (31.6-35.5) g/dL RDW (11.5-14.5) % Plt Count (140-400) K/mcL MPV (9.4-12.4) fL Immature Gran % (0-4) % Seg Neutrophils % % Lymphocytes % % Monocytes % % Eosinophils % % Basophils % % Neutrophils # (1.6-8.9) K/mcL Lymphocytes # (0.6-4.6) K/mcL Monocytes # (0.0-1.3) K/mcL Eosinophils # (0.0-0.6) K/mcL Basophils # (0.0-0.2) K/mcL Sodium (136-145) mEq/L Potassium (3.5-5.1) mEq/L Chloride (98-107) mEq/L Carbon Dioxide (23-29) mEq/L BUN (8-23) mg/dL Creatinine (0.60-1.20) mg/dL Est GFR ( Amer) (> 60) Est GFR (Non-Af Amer) (> 60) BUN/Creatinine Ratio (6-26) Glucose (70-105) mg/dL Calculated Osmolality (280-300) Lactic Acid 0.9 (0.5-2.2) mmol/L Calcium (8.6-10.3) mg/dL TSH 5.311 (0.340-5.600) mcIU/mL Urine Color (Yellow) Urine Clarity (Clear) Urine pH (5.0-8.0) pH Units Ur Specific [place] (1.010-1.025) Urine Protein (Neg-Trace) mg/dL Urine Glucose (UA) (Normal) mg/dL Urine Ketones (Negative) mg/dL Urine Blood (Negative) Urine Nitrite (Negative) Urine Bilirubin (Negative) Urine Urobilinogen (Normal) mg/dL Ur Leukocyte Esterase (Negative) Urine Microscopic RBC (0-3) per hpf Urine Microscopic WBC (0-3) per hpf Ur Squamous Epith Cells (None-Few) per lpf Urine Bacteria (None-Few) per hpf Hyaline Casts (None-Few) per lpf Ur Culture Indicated? (NO) - Radiology Data Radiology results reviewed: Yes I reviewed the patient's radiology results. Chest X-Ray 09/06/17 15:53 IMPRESSION: Stable exam with stable airspace opacity to the right upper lung zone along with focal pleural thickening versus loculated pleural fluid to the right lung apex. Findings could reflect infectious etiology, but neoplastic etiology cannot be excluded. COPD. D/ / 09/06/2017 16:51:28 Carlos Bocanegra MD / smiley Interpreting Provider: Carlos Bocanegra MD Chest CT 09/06/17 17:44 IMPRESSION: Masslike consolidation within the right upper lobe which is increased in size since the prior study worrisome for neoplasm. Destructive lucent lesions of adjacent ribs are worrisome for neoplastic involvement. D/ / Michaelle Crowder Cha, MD / Michaelle Crowder Cha, MD Interpreting Provider: Michaelle Crowder Cha, MD S.B.Janine. - [email or web address]. Situation: Demographics, MOA Background: Presenting Complaint, Relevant PMH, Meds, & Allergies Assessment: Course and respsone to treatment, Exam Concerns, Patient/Family Expectation, Pertinant Lab Results Recommendation: Barrier(s) to disposition, Recommendation based on pending studies, treatments, or consults [email or web address] Report Given to: Dr. Pierce
[2017-09-06 16:31] LABS: Bilirubin,Urine Negative (Negative); Blood,Urine Negative (Negative); Clarity,Urine Cloudy (Clear); Color,Urine Yellow (Yellow); Glucose,Urine (UA) Normal (Normal); Ketones,Urine Negative (Negative); Leukocyte Esterase,Urine Small (Negative); Nitrite,Urine Negative (Negative); Protein,Urine 30 mg/dL (Neg-Trace); Specific Gravity,Urine 1.026 (1.010-1.025); Urobilinogen,Urine Normal (Normal)
[2017-09-06 16:33] LABS: Bacteria,Urine None Seen per hpf (None-Few); Hyaline Casts,Urine Moderate per lpf (None-Few); Squamous Epithelial Cell,Urine Many per lpf (None-Few); WBC,Urine 30-50 per hpf (0-3)
[2017-09-06 17:10] LABS: Basophils # 0.1 K/mcL (0.0-0.2); Basophils % 0.2 %; Eosinophils % 0.1 %; Hematocrit 29.1 % (35.3-44.9); Hemoglobin 8.6 g/dL (11.5-15.4); Immature Granulocytes % 2.5 % (0-4); Lymphocytes # 0.8 K/mcL (0.6-4.6); Lymphocytes % 3.3 %; Mean Corpuscular HGB Conc 29.6 g/dL (31.6-35.5); Mean Corpuscular Hemoglobin 26.1 pg (28.0-33.3); Mean Corpuscular Volume 88.4 fL (83.0-100.0); Mean Platelet Volume 10.1 fL (9.4-12.4); Monocytes # 1.5 K/mcL (0.0-1.3); Neutrophils # 21.8 K/mcL (1.6-8.9); Platelet Count 470 K/mcL (140-400); Red Blood Count 3.29 M/mcL (3.82-4.97); Red Cell Distribution Width 17.6 % (11.5-14.5); Segmented Neutrophils % 87.9 %
[2017-09-06 17:24] LABS: BUN/Creatinine Ratio 32 (6-26); Blood Urea Nitrogen 23 mg/dL (8-23); Calcium 8.4 mg/dL (8.6-10.3); Carbon Dioxide 19 mEq/L (23-29); Chloride 106 mEq/L (98-107); Glucose 84 mg/dL (70-105); Osmolality,Calculated 287 (280-300); Potassium 3.8 mEq/L (3.5-5.1); Sodium 137 mEq/L (136-145); eGFR For African Americans > 60 (> 60); eGFR For Non-African Americans > 60 (> 60)
[2017-09-06] MEDS ORDERED: Levofloxacin 750 MG/150 ML 750 MG/150 ML BAG IVPB ONE (17:44)
[2017-09-06] MEDS ORDERED: Piperacillin/Tazobactam 3.375 GM in D5% in Water (Mini-Bag+) 100 ML IVPB ONE (17:44)
[2017-09-06] MEDS ORDERED: Vancomycin 500 MG in D5% in Water 100 ML IVPB ONE (17:44)
[2017-09-06] MEDS ORDERED: Piperacillin/Tazobactam 3.375 GM in Water for inj. (sterile) 20 ML 20 ML IVP ONE (18:00)
--- NOTE | 2017-09-06 18:08 | Emergency Department Note ---
START Narrative - START START: I examined this patient and my medical decision-making was reviewed with the MEDICAL BILLER/PA/Advanced Practice Nurse/Resident Physician. I agree with the documented findings, disposition and treatment plan as described except to the extent set forth below. ED attending: Patient's emergency medicine resident Dr. Phoenix Whipple. Please see copy of this note for H&P evaluation and management and ED disposition. We both had independent [id number] time in contact with this patient. Briefly: A 87-year-old female female presents with 2 weeks of cough shortness of breath intermittent fevers. X-ray shows worsening infiltrate. Patient is given be admitted for healthcare acquired pneumonia. Admission disposition pending
[2017-09-06] MEDS ORDERED: Acetaminophen 325 MG TABLET PO ONE (18:22)
[2017-09-06] MEDS ORDERED: Benzonatate 100 MG CAPSULE PO PRN (22:36)
[2017-09-06] MEDS ORDERED: *HR* Morphine 2 MG/ML SYRINGE IVP PRN (22:38)
[2017-09-06] MEDS ORDERED: Naloxone 0.4 MG/ML INJ IVP PRN (22:38)
--- NOTE | 2017-09-06 22:48 | Internal Med History&Physical ---
Date of Encounter: 09/06/17 Time of Encounter: 22:44 Assessment and Plan (1) Postobstructive pneumonia Current visit: Yes Status: Acute consult pulm and onc for further management IVF,bolus, IV levaquin overnight send serology blood cx pend, trend WBC (2) Squamous cell carcinoma of right lung Current visit: No Status: Chronic suspect local recurrence with possible metastatic bone disease consult onc (3) HTN (hypertension), benign Current visit: Yes Status: Acute continue med Internal Medicine - H&P: HPI Chief complaint: Fever/chills/ Don't feel well History of present illness: Ms. Rogers is a 87 year old female who presents with fever/chills/don't feel well. Found to have PNA, possible post-obstructive with concerns for cancer recurrence ?? She reports being here in the hospital before thanksgiving for PNA. She didn't get better since discharge and has been having progressive fever and chills. No SOB but note of dry cough. Generalized weakness and weight loss. She has a hx of lung cancer in Jul 2016 s/p XRT with Dr lucas. CT/CT chest wo con IMPRESSION: Masslike consolidation within the right upper lobe which is increased in size since the prior study worrisome for neoplasm. Destructive lucent lesions of adjacent ribs are worrisome for neoplastic involvement. XR/XR chest 1V portable IMPRESSION: Stable exam with stable airspace opacity to the right upper lung zone along with focal pleural thickening versus loculated pleural fluid to the right lung apex. Findings could reflect infectious etiology, but neoplastic etiology cannot be excluded. COPD. Past Med Surg Social Fam HX - Past Medical History Medical history: cancer, diabetes, GERD, hypertension, peripheral artery disease , renal disease, other Psychiatric history: anxiety - Past Surgical History Surgical History: carotid endarterectomy, hip replacement - Social History Smoking Status: Former smoker Smokeless Tobacco Status: No Alcohol use: none Drug use: none - Family History Mother Hx Family Neurologic Disorders: Yes (stroke) Internal Medicine - H&P: Meds Ascorbic Acid [Vitamin C] 1,000 mg PO DAILY 08/27/15 [History] Calcium Carbonate/Vitamin D3 [Calcium 600 + Vit D Softgel] 1 each PO DAILY 08/27 [History] LORazepam [Ativan] 1 mg PO Q6-8H PRN 08/27/15 [History] Multivit-Min/FA/Lycopen/Lutein [Centrum Silver Tablet] 1 each PO DAILY 08/27/15 [History] Mirtazapine 7.5 mg PO HS 03/26/17 [History] Clopidogrel [Plavix] 75 mg PO DAILY 05/01/17 [History] Benzonatate [Tessalon] 100 mg PO TID PRN #90 capsule 07/09/17 [Rx] Albuterol Sulfate [Albuterol Inhaler] 2 puff IH Q4HR PRN #0 07/30/17 [Rx] amLODIPine [Norvasc] 5 mg PO DAILY #30 tablet 07/30/17 [Rx] Ipratropium/Albuterol Neb [Duoneb] 3 ml IH Q2H PRN 09/06/17 [History] Ipratropium/Albuterol Neb [Duoneb] 3 ml IH QID 09/06/17 [History] Lisinopril [Zestril] 10 mg PO QPM 09/06/17 [History] Lisinopril [Zestril] 20 mg PO QAM 09/06/17 [History] Omeprazole [PriLOSEC] 40 mg PO DAILY 09/06/17 [History] 3 Allergy/AdvReac Type Severity Reaction Status Date / Time metronidazole [From Flagyl] Allergy Agitated Verified 08/28/17 16:47 Oxycodone [From Percocet] Allergy Agitated Verified 08/28/17 16:47 codeine AdvReac See Verified 08/28/17 16:47 Comments All Systems PM: A 10-system review of systems was performed and is negative for pertinent findings except as documented above in the HPI. Review of systems: ROS 14 point review of systems reviewed as best as possible given presentation. Pertinent positive or negative as per HPI or otherwise reviewed as negative - Constitutional Vitals: Temp Pulse Resp BP Pulse Ox 98.2 F 83 16 95/55 96 09/06/17 21:34 09/06/17 21:34 09/06/17 21:34 09/06/17 21:34 09/06/17 21:34 Exam: General - AAO x 3 Psych - Appropriate affect/speech. No agitation Eyes - CHAU. Eye lids intact. No scleral icterus Heart - Sinus. RRR. S1 and S2 present. No added HS/murmurs appreciated. No elevated JVD appreciated. Lung - Adequate air entry b/l but with Right upper zone diminished, No wheezes appreciated, Right upper zone crackles GI - Soft, non-tender. No hepatosplenomegaly/ascites. BS+ - No CVA/suprapubic tenderness or palpable bladder distension Skin - Intact. No rash/petechiae/ecchymosis. Warm extremities MSK - Joints with normal ROM. No joint swellings Internal Med - H&P Results - Labs CBC & Chem 7: 09/06/17 17:01 09/06/17 17:01
[2017-09-06] MEDS ORDERED: 0.9 % Sodium Chloride 500 ML IV.SOLN IVC ONE (22:55)
[2017-09-06] MEDS ORDERED: Levofloxacin 500 MG/100 ML 500 MG/100 ML BAG IVPB SCH (23:00)
[2017-09-06] MEDS ORDERED: Ibuprofen 600 MG TABLET PO PRN (23:16)
[2017-09-06] MEDS: 0.9 % Sodium Chloride 1,000 ML IV ONE (23:41)
[2017-09-06] MEDS: 0.9 % Sodium Chloride 1,000 ML IVC SCH (23:41)
[2017-09-06] MEDS: *HR* LORazepam 1 MG TABLET PO PRN (23:41)
[2017-09-07] MEDS: 0.9 % Sodium Chloride 1,000 ML IV ONE (03:25)
[2017-09-07 04:46] LABS: Basophils % 0.2 %; Eosinophils # 0.1 K/mcL (0.0-0.6); Eosinophils % 0.4 %; Hematocrit 24.4 % (35.3-44.9); Hemoglobin 7.3 g/dL (11.5-15.4); Immature Granulocytes % 2.2 % (0-4); Lymphocytes # 0.7 K/mcL (0.6-4.6); Lymphocytes % 3.1 %; Mean Corpuscular HGB Conc 29.9 g/dL (31.6-35.5); Mean Corpuscular Hemoglobin 26.4 pg (28.0-33.3); Mean Corpuscular Volume 88.1 fL (83.0-100.0); Mean Platelet Volume 9.6 fL (9.4-12.4); Monocytes # 1.7 K/mcL (0.0-1.3); Monocytes % 8.2 %; Platelet Count 407 K/mcL (140-400); Red Blood Count 2.77 M/mcL (3.82-4.97); Red Cell Distribution Width 17.4 % (11.5-14.5); Segmented Neutrophils % 85.9 %
[2017-09-07 04:57] LABS: BUN/Creatinine Ratio 25 (6-26); Blood Urea Nitrogen 21 mg/dL (8-23); Carbon Dioxide 28 mEq/L (23-29); Chloride 108 mEq/L (98-107); Glucose 83 mg/dL (70-105); Osmolality,Calculated 292 (280-300); Potassium 3.6 mEq/L (3.5-5.1); Sodium 140 mEq/L (136-145); eGFR For African Americans > 60 (> 60); eGFR For Non-African Americans > 60 (> 60)
[2017-09-07] MEDS: *HR* Enoxaparin 30 MG/0.3 ML SYRINGE SQ SCH (05:38)
--- NOTE | 2017-09-07 08:29 | Pulmonology Consult Note ---
<Ponce Be - Last Filed: 09/07/17 14:13> Date of Encounter: 09/07/17 Time of Encounter: 08:26 Assessment and Plan (1) Mass of upper lobe of right lung Current Visit: Yes Status: Acute - Known history of squamous cell carcinoma of right lung. - Follows with [facility] oncology and has received radiation at [facility] with Dr. Arnett - No report of cough, SOB - CXR and CT who masslike consolidation in right upper lobe which has been present on previous imaging since April however has increased in size. - Oncology consulted, appreciate recommendations Plan - Possible etiologies include recurrence and growth of neoplasm vs post obstructive PNA - Discussed possibility of bronchoscopy with patient and we have decided to attempt a course of antibiotics and repeat CT scan to assess for improvement first. - Recommend broad spectrum antibiotics with aspiration coverage given hx of GERD and CT findings of esophagus. Recommend Zosyn (2) Postobstructive pneumonia Current Visit: Yes Status: Acute - Possible PNA vs enlarging mass in right upper lung on CT and CXR in ED - Pt has been febrile with Tmax of 102, tachycardic in 100s, WBC of 20.9 with left shift since admission - Lactic acid wnl. - Unclear if incomplete resolution of PNA from July admission vs newly aquired vs mass - Possible aspiration etiology suspected. - has been given 1 dose of vanc and zosyn, Levaquin in ED. - Cefepime started by primary team this AM. Plan recommend trial of antibiotics that cover aspiration such as zosyn given flagyl allergy Will reassess after antimicrobial trial to determine if there is a need for bronchoscopy with BAL Oncology consulted for possible recurrent mass. (3) HTN (hypertension), benign Current Visit: Yes Status: Acute Currently well controlled. Management per primary team (4) Diabetes mellitus Current Visit: Yes Status: Chronic Pt denies history of diabetes. A1c of 5.5 in july of 2017 Management per primary team. Qualifiers: Diabetes mellitus type: type 2 Diabetes mellitus complication status: without complication Diabetes mellitus custodial insulin use: without custodial use Qualified Code(s): E11.9 - Type 2 diabetes mellitus without complications (5) Squamous cell carcinoma of right lung Current Visit: Yes Status: Chronic Known history of squamous cell in right lower lobe. Has received radiation from February 2016- July 2016. Reports she has followed with both [facility] and [facility] most recently in July. Not receiving treatments at this time. She was told to "take a break" from her oncologist. Enlarged mass possibly due to cancer growth Plan Management per Oncology and primary team (6) DVT prophylaxis Current Visit: Yes Status: Acute Lovenox 30 mg Qday History of Present Illness Consult date: 09/07/17 Requesting physician: Luis Daniel Pierce Reason for consult: pneumonia, lung mass Chief complaint: fevers, chills History of present illness: Mrs. Rogers lady with a past medical history of squamous cell carcinoma of the right lower lung, T2b N 3 MX, hypermetabolic spiculated left upper lobe right upper lobe, right lower lobe nodules, likely metastatic status post radiation from February to July 2016. She follows with oncology at [facility]. She presented to the emergency room with a chief complaint of fevers, chills 2 weeks. She notes that she was admitted right before Thanksgiving diagnosis of pneumonia and never fully recovered to her baseline. She denies any symptoms of chest pain, shortness of breath but does admit to a nonproductive cough for the past couple days. She denies dysuria but states she is unable to void since being admitted. She has been measuring her temperatures and has a MAXIMUM TEMPERATURE of 102.4. She denies any symptoms of abdominal pain, nausea, vomiting and has chronically loose stools secondary to irritable bowel syndrome. She denies any history of pulmonary disease but does admit to a 50 year pack history. She is not oxygen dependent at home. 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 No family history of lung disease. Past Med Surg Social Fam HX - Past Medical History Medical history: cancer, diabetes, GERD, hypertension, peripheral artery disease , renal disease, other Psychiatric history: anxiety - Past Surgical History Surgical History: carotid endarterectomy, hip replacement - Social History Smoking Status: Former smoker Smokeless Tobacco Status: No Alcohol use: none Drug use: none - Family History Mother Hx Family Neurologic Disorders: Yes (stroke) Medications and Allergies Ascorbic Acid [Vitamin C] 1,000 mg PO DAILY 08/27/15 [History] Calcium Carbonate/Vitamin D3 [Calcium 600 + Vit D Softgel] 1 each PO DAILY 08/27 [History] LORazepam [Ativan] 1 mg PO Q6-8H PRN 12/18/15 [History] Multivit-Min/FA/Lycopen/Lutein [Centrum Silver Tablet] 1 each PO DAILY 08/27/15 [History] Mirtazapine 7.5 mg PO HS 03/26/17 [History] Clopidogrel [Plavix] 75 mg PO DAILY 05/01/17 [History] Benzonatate [Tessalon] 100 mg PO TID PRN #90 capsule 07/09/17 [Rx] Albuterol Sulfate [Albuterol Inhaler] 2 puff IH Q4HR PRN #0 07/30/17 [Rx] amLODIPine [Norvasc] 5 mg PO DAILY #30 tablet 07/30/17 [Rx] Ipratropium/Albuterol Neb [Duoneb] 3 ml IH Q2H PRN 09/06/17 [History] Ipratropium/Albuterol Neb [Duoneb] 3 ml IH QID 09/06/17 [History] Lisinopril [Zestril] 10 mg PO QPM 09/06/17 [History] Lisinopril [Zestril] 20 mg PO QAM 09/06/17 [History] Omeprazole [PriLOSEC] 40 mg PO DAILY 09/06/17 [History] 3 Allergy/AdvReac Type Severity Reaction Status Date / Time metronidazole [From Flagyl] Allergy Agitated Verified 08/28/17 16:47 Oxycodone [From Percocet] Allergy Agitated Verified 08/28/17 16:47 codeine AdvReac See Verified 08/28/17 16:47 Comments All Systems: A 10-system review of systems was performed and is negative for pertinent findings except as documented above in the HPI. - Constitutional Constitutional: chills, fatigue, fever(s), weight loss, no headache(s) - Cardiovascular Cardiovascular: no chest pain, no chest pain at rest, no diaphoresis, no dyspnea , no dyspnea on exertion, no lightheadedness, no syncope - Respiratory Respiratory: cough, no dyspnea, no hemoptysis, no dyspnea on exertion, no wheezing - Gastrointestinal Gastrointestinal: loose stools, no abdominal pain, no nausea, no vomiting - Genitourinary Genitourinary: no difficulty voiding, no dysuria - Neurological Neurological: no dizziness, no numbness, no tingling Physical Examination Vital Signs: Vital Signs, Last 4 Hours Temp Pulse Resp BP Pulse Ox 09/07/17 07:14 97.4 F L 72 16 122/67 100 09/07/17 05:22 68 17 115/61 98 General appearance: no acute distress, alert, other (cachectic ) Effort: mildly labored Inspection: scoliosis Auscultation: bilateral: diminished breath sounds (worse on right) Cardiovascular: regular rate and rhythm, PVC's noted Gastrointestinal: normoactive bowel sounds Integumentary: normal, decubitus ulcer (thoracic ) Extremities: no cyanosis, no edema, no clubbing, pink and warm Results - Laboratory Findings CBC and BMP: 09/07/17 04:37 09/07/17 04:37 Abnormal lab findings: Abnormal lab results WBC 20.9 K/mcL (4.3-11.1) H 09/07/17 04:37 RBC 2.77 M/mcL (3.82-4.97) L 09/07/17 04:37 Hgb 7.3 g/dL (11.5-15.4) L 09/07/17 04:37 Hct 24.4 % (35.3-44.9) L 09/07/17 04:37 MCH 26.4 pg (28.0-33.3) L 09/07/17 04:37 MCHC 29.9 g/dL (31.6-35.5) L 09/07/17 04:37 RDW 17.4 % (11.5-14.5) H 09/07/17 04:37 Plt Count 407 K/mcL (140-400) H 09/07/17 04:37 Neutrophils # 18.0 K/mcL (1.6-8.9) H 09/07/17 04:37 Monocytes # 1.7 K/mcL (0.0-1.3) H 09/07/17 04:37 Chloride 108 mEq/L (98-107) H 09/07/17 04:37 Calcium 8.0 mg/dL (8.6-10.3) L 09/07/17 04:37 Urine Clarity Cloudy (Clear) A 09/06/17 16:08 Ur Specific Arbon 1.026 (1.010-1.025) H 09/06/17 16:08 Urine Protein 30 mg/dL (Neg-Trace) H 09/06/17 16:08 Ur Leukocyte Esterase Small (Negative) H 09/06/17 16:08 Urine Microscopic RBC 5-15 per hpf (0-3) H 09/06/17 16:08 Urine Microscopic WBC 30-50 per hpf (0-3) H 09/06/17 16:08 Ur Squamous Epith Cells Many per lpf (None-Few) H 09/06/17 16:08 Hyaline Casts Moderate per lpf (None-Few) H 09/06/17 16:08 - Clinical Findings Intake & Output: Intake & Output 09/06/17 09/07/17 09/07/17 23:59 07:59 15:59 Intake Total 100 / 100 Output Total 150 / 150 Balance -50 / -50 Consult Discharge Plan - Plan Referrals: Otilia Coffey DO [Primary Care Provider] - <Shawn Powell - Last Filed: 09/07/17 16:38> Date of Encounter: 09/07/17 All Systems: A 10-system review of systems was performed and is negative for pertinent findings except as documented above in the HPI. Physical Examination Vital Signs: Vital Signs, Last 4 Hours Temp Pulse Resp BP Pulse Ox 09/07/17 15:49 16 98 09/07/17 15:47 98.8 F 94 18 118/67 98 Results - Laboratory Findings CBC and BMP: 09/07/17 04:37 09/07/17 04:37 Abnormal lab findings: Abnormal lab results WBC 20.9 K/mcL (4.3-11.1) H 09/07/17 04:37 RBC 2.77 M/mcL (3.82-4.97) L 09/07/17 04:37 Hgb 7.3 g/dL (11.5-15.4) L 09/07/17 04:37 Hct 24.4 % (35.3-44.9) L 09/07/17 04:37 MCH 26.4 pg (28.0-33.3) L 09/07/17 04:37 MCHC 29.9 g/dL (31.6-35.5) L 09/07/17 04:37 RDW 17.4 % (11.5-14.5) H 09/07/17 04:37 Plt Count 407 K/mcL (140-400) H 09/07/17 04:37 Neutrophils # 18.0 K/mcL (1.6-8.9) H 09/07/17 04:37 Monocytes # 1.7 K/mcL (0.0-1.3) H 09/07/17 04:37 Chloride 108 mEq/L (98-107) H 09/07/17 04:37 Calcium 8.0 mg/dL (8.6-10.3) L 09/07/17 04:37 Urine Clarity Cloudy (Clear) A 09/06/17 16:08 Ur Specific Arbon 1.026 (1.010-1.025) H 09/06/17 16:08 Urine Protein 30 mg/dL (Neg-Trace) H 09/06/17 16:08 Ur Leukocyte Esterase Small (Negative) H 09/06/17 16:08 Urine Microscopic RBC 5-15 per hpf (0-3) H 09/06/17 16:08 Urine Microscopic WBC 30-50 per hpf (0-3) H 09/06/17 16:08 Ur Squamous Epith Cells Many per lpf (None-Few) H 09/06/17 16:08 Hyaline Casts Moderate per lpf (None-Few) H 09/06/17 16:08 - Clinical Findings Intake & Output: Intake & Output 09/07/17 09/07/17 09/07/17 07:59 15:59 23:59 Intake Total 100 / 100 1010 / 1010 Output Total 150 / 150 Balance -50 / -50 1010 / 1010 - Attending Attestation I examined this patient and my medical decision-making was reviewed with the Resident Physician. I agree with the documented findings, disposition and treatment plan as described except to the extent set forth below. We independently had [id number] contact with the patient This is an 87-year-old woman with COPD known non-small cell lung cancer status post XRT radiographic findings suggestive of worsening disease and likely acute pneumonia. She has several risk factors for aspiration. Impression: 1. Acute Respiratory Failure 2. NSCLC 3. PNA 4. COPD without Exacerbation Plan: Wean FiO2 to keep saturation greater than 80% around 92%. Eval for home O2 prior to discharge Cont Bronchodilators. no clear need for steroids at present No clear evidence of large airway obstruction that could be intervened bronchoscopically bronchoscopy could be planned in the outpatient setting if additional tissue needed to confirm diagnosis/modify treatment regimen R/o Influenza (Resp infectious panel) Treatment for aspiration PNA x 7-10 days based upon clinical course Recommend IV zosyn with plan to transition to Augmentin pending sputum/blood cultures Oncology Consultation Pulmonary Will sign off Thank you for this consultation
[2017-09-07] MEDS: 0.9 % Sodium Chloride 1,000 ML IVC SCH (08:54)
[2017-09-07] MEDS ORDERED: Dextrose Gel 15 GM/37.5 ML TUBE PO PRN ×2 (08:56)
[2017-09-07] MEDS: amLODIPine 5 MG TABLET PO SCH (08:56)
[2017-09-07] MEDS ORDERED: D5% in Water 1,000 ML IVC PRN (08:56)
[2017-09-07] MEDS ORDERED: *HR* Dextrose 50 % in Water (Syg) 50 ML SYRINGE IVP PRN (08:56)
[2017-09-07] MEDS: Lisinopril 20 MG TABLET PO SCH (08:56)
--- NOTE | 2017-09-07 09:02 | Internal Med Progress Note ---
Date of Encounter: 09/07/17 Time of Encounter: 08:58 - Assessment and plan (1) Acute respiratory failure with hypoxia Current Visit: No Status: Acute Assessment and plan: currently she is on 2lit o2 Cont empirical abx Levaquin + added cefepime will f/u on sputum cx and blood cx check resp viral panel cont duoneb no need of steroids (2) Pneumonia Current Visit: No Status: Acute Assessment and plan: mostly bacterial.. also concerned for post obstructive Pulmonary on board cont empirical axb Levaquin for atypical coverage, also added cefepime for broad spec coverage Qualifiers: Pneumonia type: due to unspecified organism Laterality: right Lung location: upper lobe of lung Qualified Code(s): J18.1 - Lobar pneumonia, unspecified organism (3) COPD exacerbation Current Visit: No Status: Acute Assessment and plan: mild COPD exacerbation no need of systemic steroids cont Duoneb will consider adding INH steroids need to f/u with Pulm as an out pt (4) Cachexia Current Visit: No Status: Acute Assessment and plan: mostly due to lung cancer.. and poor dietary habits Building Services Engineer consulted (5) Protein-calorie malnutrition, severe Current Visit: No Status: Acute (6) Leukocytosis Current Visit: No Status: Acute Assessment and plan: could be reactive started trending down Qualifiers: Qualified Code(s): D72.829 - Elevated white blood cell count, unspecified (7) Mass of upper lobe of right lung Current Visit: Yes Status: Acute Assessment and plan: inc in size consulted Heme Onc for further eval (8) Postobstructive pneumonia Current Visit: Yes Status: Acute (9) Squamous cell carcinoma of right lung Current Visit: No Status: Chronic (10) Diabetes mellitus Current Visit: Yes Status: Acute Assessment and plan: on ISS Qualifiers: Diabetes mellitus type: type 2 Diabetes mellitus complication status: without complication 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 Rogers is a 87 year old female with PMH of right upper lobe lung cancer ( last treatment July 2016; continues to be followed by oncology), diabetes, GERD, PUD, hypertension, PCM, Failure to thrive pt who presented to ER with fever, chills and dry cough from last few days. As per pt she was never really got better since her last hospitalization before . Her CT of chest in the ER showed mass consolidation in RUL which is increased in size, destructive lucent lesions of adjacent ribs. She was admitted in the hospital and started her on empirical abx and frequent duoneb. She still feels SOB and FINCH. Denied any CP. Still has cough. - Constitutional Vitals: Temp Pulse Resp BP Pulse Ox 97.4 F L 72 16 122/67 100 09/07/17 07:14 09/07/17 07:14 09/07/17 07:14 09/07/17 07:14 09/07/17 07:14 General appearance: Present: A&O X 3, loss of weight, answers questions appropriately - Head Head exam: Present: atraumatic, normal inspection - Neck Neck exam general surgery: Present: supple - Respiratory Respiratory exam: Present: decreased breath sounds, wheezes (mild). Absent: rales, respiratory distress, rhonchi - Cardiovascular Cardiovascular exam: Present: RRR, +S1, +S2. Absent: tachycardia - GI/Abdominal GI/Abdominal exam: Present: normal bowel sounds, soft. Absent: rebound, rigid, tenderness - Extremities Exam Extremities exam: Absent: calf tenderness, pedal edema, tenderness - Back Exam Back exam: Absent: CVA tenderness (L), CVA tenderness (R) - Neurological Exam Neurological exam: Present: alert, oriented X3 - Psychiatric Psychiatric exam: Present: normal affect, normal mood Internal Medicine: Result - Labs CBC & Chem 7: 09/07/17 04:37 09/07/17 04:37 Labs: Short CBC 09/07/17 Range/Units 04:37 WBC 20.9 H (4.3-11.1) K/mcL Hgb 7.3 L (11.5-15.4) g/dL Hct 24.4 L (35.3-44.9) % Plt Count 407 H (140-400) K/mcL Neutrophils # 18.0 H (1.6-8.9) K/mcL BMP 09/07/17 04:37 Sodium 140 Potassium 3.6 Chloride 108 H Carbon Dioxide 28 BUN 21 Creatinine 0.83 Glucose 83 Calcium 8.0 L Consult Discharge Plan - Plan Referrals: Otilia Coffey DO [Primary Care Provider] -
[2017-09-07] MEDS ORDERED: Cefepime HCl 1,000 MG in D5% in Water (Mini-Bag+) 100 ML IVPB SCH (10:00)
[2017-09-07] MEDS: Ipratropium/Albuterol Neb 3 ML IH SCH ×4 (10:52→21:20)
[2017-09-07] MEDS ORDERED: Cefepime HCl 1,000 MG in Water for inj. (sterile) 10 ML IVP SCH (11:00)
[2017-09-07] MEDS ORDERED: Insulin LISPRO 300 UNITS/3 ML VIAL SQ SCH ×2 (11:30→21:00)
[2017-09-07] MEDS: *HR* LORazepam 1 MG TABLET PO PRN (16:32)
--- NOTE | 2017-09-07 16:33 | Oncology Inp Consult Note ---
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 Prior hospitalization for pneumonia, possible progression and postobstructive versus treatment related changes in the lungs. IV antibiotics, pulmonary consultation appreciated on Zosyn levofloxacin. Morphine as needed for pain patient is symptomatic with coughing? Aspiration. Baseline shortness of breath on oxygen history of COPD and declined her general condition. Culture data pending leukocytosis appears to be chronic possible reactive versus related to infection. Anemia status post iron injection in the past possibly related to current infectious episode transfuse PRBC for symptomatic anemia. Patient seen bedside this AM, plan of care is as outlined above. - Data of Consult Requesting Physician: Del Narayanan MD Primary Care Provider: Otilia Coffey DO - Consult Narrative Reason for consult: Rt lung cancer History of present illness: Ms. Rogers is a 87 year old female with a medical history significant for right upper lobe lung cancer would undergone radiation therapy with Dr. Arnett , squamous cell carcinoma T2 ? N3 MX, patient was not a candidate for systemic chemotherapy from prior records, had followed up with us for anemia, iron deficiency status post iron infusion in the past, hospitalized with chills, fever, antibiotic treatment for pneumonia. Patient underwent a CT imaging of the chest without contrast on 2016 that has shown slight increase in size of the right upper lobe lung mass from 5.2 x 5.1 cm from previous measurement of 5.5 x 4.4 cm, right small pleural effusion distracted lucent lesions in the adjacent ribs. Patient is also mildly short of breath at baseline without any recent worsening, oxygen dependent complains of dry cough and weakness. Oncology consulted with a suspicion of progression and possible adjacent bony invasion. Past Med Surg Social Fam HX - Past Medical History Medical history: cancer, diabetes, GERD, hypertension, peripheral artery disease , renal disease, other Psychiatric history: anxiety - Past Surgical History Surgical History: carotid endarterectomy, hip replacement - Social History Smoking Status: Former smoker Smokeless Tobacco Status: No Alcohol use: none Drug use: none - Family History Mother Hx Family Neurologic Disorders: Yes (stroke) Medications and Allergies Ascorbic Acid [Vitamin C] 1,000 mg PO DAILY 08/27/15 [History] Calcium Carbonate/Vitamin D3 [Calcium 600 + Vit D Softgel] 1 each PO DAILY 08/27 [History] LORazepam [Ativan] 1 mg PO Q6-8H PRN 08/27/15 [History] Multivit-Min/FA/Lycopen/Lutein [Centrum Silver Tablet] 1 each PO DAILY 08/27/15 [History] Mirtazapine 7.5 mg PO HS 03/26/17 [History] Clopidogrel [Plavix] 75 mg PO DAILY 05/01/17 [History] Benzonatate [Tessalon] 100 mg PO TID PRN #90 capsule 07/09/17 [Rx] Albuterol Sulfate [Albuterol Inhaler] 2 puff IH Q4HR PRN #0 07/30/17 [Rx] amLODIPine [Norvasc] 5 mg PO DAILY #30 tablet 07/30/17 [Rx] Ipratropium/Albuterol Neb [Duoneb] 3 ml IH Q2H PRN 09/06/17 [History] Ipratropium/Albuterol Neb [Duoneb] 3 ml IH QID 09/06/17 [History] Lisinopril [Zestril] 10 mg PO QPM 09/06/17 [History] Lisinopril [Zestril] 20 mg PO QAM 09/06/17 [History] Omeprazole [PriLOSEC] 40 mg PO DAILY 09/06/17 [History] 3 Allergy/AdvReac Type Severity Reaction Status Date / Time metronidazole [From Flagyl] Allergy Agitated Verified 08/28/17 16:47 Oxycodone [From Percocet] Allergy Agitated Verified 08/28/17 16:47 codeine AdvReac See Verified 08/28/17 16:47 Comments Review of systems: as in HPI Oncology - Exam - Constitutional Vitals: Temp Pulse Resp BP Pulse Ox 98.8 F 94 16 118/67 98 09/07/17 15:47 09/07/17 15:47 09/07/17 15:49 09/07/17 15:47 09/07/17 15:49 General appearance: thin - Head Head exam: Present: atraumatic, normal inspection - Eye Eye exam: Present: sclera anicteric - ENT ENT exam: Present: mucous membranes moist - Neck Neck exam: Present: full ROM - Respiratory Respiratory exam: Present: CTAB, tachypnea - Cardiovascular Cardiovascular exam: Present: +S1, +S2, tachycardia - GI/Abdominal GI/Abdominal exam: Present: normal bowel sounds, soft - Extremities Exam Extremities exam: Present: normal inspection - Neurological Exam Neurological exam: Present: alert, CN II-XII intact, oriented X3, no focal deficits - Psychiatric Psychiatric exam: Present: normal mood Oncology - Results Labs: Short CBC 09/07/17 Range/Units 04:37 WBC 20.9 H (4.3-11.1) K/mcL Hgb 7.3 L (11.5-15.4) g/dL Hct 24.4 L (35.3-44.9) % Plt Count 407 H (140-400) K/mcL Neutrophils # 18.0 H (1.6-8.9) K/mcL BMP 09/07/17 04:37 Sodium 140 Potassium 3.6 Chloride 108 H Carbon Dioxide 28 BUN 21 Creatinine 0.83 Glucose [address] chest per HPI Consult Discharge Plan - Plan Referrals: Otilia Coffey DO [Primary Care Provider] -
[2017-09-07] MEDS: Piperacillin/Tazobactam 3.375 GM/200 ML BAG IVPB SCH (18:44)
[2017-09-07] MEDS: Mirtazapine 15 MG TABLET PO SCH (22:30)
[2017-09-08] MEDS: Ipratropium/Albuterol Neb 3 ML IH SCH ×7 (00:03→23:34)
[2017-09-08] MEDS: Piperacillin/Tazobactam 3.375 GM/200 ML BAG IVPB SCH ×3 (03:30→19:06)
[2017-09-08] MEDS: *HR* Enoxaparin 30 MG/0.3 ML SYRINGE SQ SCH (05:41)
[2017-09-08 05:58] LABS: Basophils # 0.1 K/mcL (0.0-0.2); Basophils % 0.3 %; Eosinophils # 0.1 K/mcL (0.0-0.6); Eosinophils % 0.2 %; Hematocrit 27.5 % (35.3-44.9); Immature Granulocytes % 2.6 % (0-4); Lymphocytes % 4.2 %; Mean Corpuscular HGB Conc 29.1 g/dL (31.6-35.5); Mean Corpuscular Volume 89.3 fL (83.0-100.0); Monocytes # 1.8 K/mcL (0.0-1.3); Monocytes % 7.4 %; Neutrophils # 20.1 K/mcL (1.6-8.9); Platelet Count 452 K/mcL (140-400); Red Blood Count 3.08 M/mcL (3.82-4.97); Red Cell Distribution Width 17.6 % (11.5-14.5); Segmented Neutrophils % 85.3 %
[2017-09-08] MEDS: *HR* LORazepam 1 MG TABLET PO PRN (06:12)
[2017-09-08 06:13] LABS: BUN/Creatinine Ratio 22 (6-26); Blood Urea Nitrogen 17 mg/dL (8-23); Calcium 8.3 mg/dL (8.6-10.3); Carbon Dioxide 29 mEq/L (23-29); Chloride 110 mEq/L (98-107); Glucose 118 mg/dL (70-105); Osmolality,Calculated 297 (280-300); Potassium 3.8 mEq/L (3.5-5.1); Sodium 142 mEq/L (136-145); eGFR For African Americans > 60 (> 60); eGFR For Non-African Americans > 60 (> 60)
--- NOTE | 2017-09-08 09:16 | Internal Med Progress Note ---
Date of Encounter: 09/08/17 Time of Encounter: 09:13 - Assessment and plan (1) Acute respiratory failure with hypoxia Current Visit: No Status: Acute Assessment and plan: currently she is on 2lit o2 Cont empirical abx Levaquin + added Zosyn for anaerobic coverage too suspecting possible aspiration pneumonia will f/u on sputum cx and blood cx resp viral panel - P Influenza A & B , Strep PNA are negative cont duoneb no need of steroids (2) Pneumonia Current Visit: No Status: Acute Assessment and plan: mostly bacterial.. also concerned for post obstructive and possible aspiration she is high risk for aspiration.. Image findings also consistent with aspiration Pulmonary on board cont empirical axb Levaquin for atypical coverage, also added zosyn for broad spec coverage Qualifiers: Pneumonia type: due to unspecified organism Laterality: right Lung location: upper lobe of lung Qualified Code(s): J18.1 - Lobar pneumonia, unspecified organism (3) COPD exacerbation Current Visit: No Status: Acute Assessment and plan: mild COPD exacerbation no need of systemic steroids cont Duoneb will consider adding INH steroids need to f/u with Pulm as an out pt (4) Cachexia Current Visit: No Status: Acute Assessment and plan: mostly due to lung cancer.. and poor dietary habits Erp Technical Lead consulted (5) Protein-calorie malnutrition, severe Current Visit: No Status: Acute (6) Leukocytosis Current Visit: No Status: Acute Assessment and plan: could be reactive started trending down Qualifiers: Qualified Code(s): D72.829 - Elevated white blood cell count, unspecified (7) Mass of upper lobe of right lung Current Visit: Yes Status: Acute Assessment and plan: inc in size consulted Heme Onc for further eval (8) Postobstructive pneumonia Current Visit: Yes Status: Acute (9) Squamous cell carcinoma of right lung Current Visit: Yes Status: Chronic (10) Diabetes mellitus Current Visit: Yes Status: Chronic Assessment and plan: Pt denied of any previous h/o DM2 on ISS Qualifiers: Diabetes mellitus type: type 2 Diabetes mellitus complication status: without complication Diabetes mellitus shelter insulin use: without shelter use Qualified Code(s): E11.9 - Type 2 diabetes mellitus without complications - Subjective Interval history: Ms. Rogers is a 87 year old female with PMH of right upper lobe lung cancer ( last treatment July 2016; continues to be followed by oncology), diabetes, GERD, PUD, hypertension, PCM, Failure to thrive pt who presented to ER with fever, chills and dry cough from last few days. As per pt she was never really got better since her last hospitalization before . Her CT of chest in the ER showed mass consolidation in RUL which is increased in size, destructive lucent lesions of adjacent ribs. She was admitted in the hospital and started her on empirical abx and frequent duoneb. She still feels SOB and FINCH. Denied any CP. Still has cough. Overall she feels little better today. No events over night - Constitutional Vitals: Temp Pulse Resp BP Pulse Ox 98.2 F 99 19 126/74 99 09/08/17 06:55 09/08/17 06:55 09/08/17 07:20 09/08/17 06:55 09/08/17 07:20 General appearance: Present: A&O X 3, loss of weight, answers questions appropriately - Head Head exam: Present: atraumatic, normal inspection - Neck Neck exam general surgery: Present: supple - Respiratory Respiratory exam: Present: decreased breath sounds, wheezes (moderate to severe) . Absent: rales, respiratory distress, rhonchi - Cardiovascular Cardiovascular exam: Present: RRR, +S1, +S2. Absent: diastolic murmur, gallop, rubs, systolic murmur - GI/Abdominal GI/Abdominal exam: Present: normal bowel sounds, soft. Absent: rebound, rigid, tenderness - Extremities Exam Extremities exam: Absent: calf tenderness, pedal edema, tenderness - Back Exam Back exam: Absent: CVA tenderness (L), CVA tenderness (R) - Psychiatric Psychiatric exam: Present: normal affect, normal mood Internal Medicine: Result - Labs CBC & Chem 7: 09/08/17 05:46 09/08/17 05:46 Labs: Short CBC 09/08/17 Range/Units 05:46 WBC 23.5 H (4.3-11.1) K/mcL Hgb 8.0 L (11.5-15.4) g/dL Hct 27.5 L (35.3-44.9) % Plt Count 452 H (140-400) K/mcL Neutrophils # 20.1 H (1.6-8.9) K/mcL BMP 09/08/17 05:46 Sodium 142 Potassium 3.8 Chloride 110 H Carbon Dioxide 29 BUN 17 Creatinine 0.78 Glucose 118 H Calcium 8.3 L Consult Discharge Plan - Plan Referrals: Otilia Coffey DO [Primary Care Provider] -
[2017-09-08] MEDS: Levofloxacin 750 MG/150 ML 750 MG/150 ML BAG IVPB SCH (09:21)
[2017-09-08] MEDS: amLODIPine 5 MG TABLET PO SCH (09:22)
[2017-09-08] MEDS: Lisinopril 20 MG TABLET PO SCH (09:22)
[2017-09-08] MEDS: Acetaminophen 325 MG TABLET PO PRN ×2 (15:14→21:54)
[2017-09-08 16:12] LABS: Adenovirus Not Detected (Not Detect); Bordetella Pertussis Not Detected (Not Detect); Chlamydophila pneumoniae Not Detected (Not Detect); Coronavirus 229E Not Detected (Not Detect); Coronavirus HKU1 Not Detected (Not Detect); Coronavirus NL63 Not Detected (Not Detect); Coronavirus OC43 Not Detected (Not Detect); Human Metapneumovirus Not Detected (Not Detect); Human Rhinovirus/Enterovirus Not Detected (Not Detect); Influenza A Subtype 2009 H1 Not Detected (Not Detect); Influenza A Untypeable Not Detected (Not Detect); Influenza B Not Detected (Not Detect); Mycoplasma pneumoniae Not Detected (Not Detect); Parainfluenza Virus 1 Not Detected (Not Detect); Parainfluenza Virus 2 Not Detected (Not Detect); Parainfluenza Virus 3 Not Detected (Not Detect); Parainfluenza Virus 4 Not Detected (Not Detect); Respiratory Syncytial Virus Not Detected (Not Detect)
[2017-09-08] MEDS: Mirtazapine 15 MG TABLET PO SCH (19:16)
[2017-09-09] MEDS: Piperacillin/Tazobactam 3.375 GM/200 ML BAG IVPB SCH ×3 (03:31→17:54)
[2017-09-09 04:36] LABS: Hemoglobin 7.8 g/dL (11.5-15.4); Mean Platelet Volume 9.9 fL (9.4-12.4); Segmented Neutrophils % 86.6 %
[2017-09-09 04:38] LABS: Basophils # 0.1 K/mcL (0.0-0.2); Basophils % 0.3 %; Eosinophils # 0.1 K/mcL (0.0-0.6); Eosinophils % 0.5 %; Hematocrit 26.8 % (35.3-44.9); Immature Granulocytes % 2.9 % (0-4); Lymphocytes # 0.7 K/mcL (0.6-4.6); Lymphocytes % 2.7 %; Mean Corpuscular HGB Conc 29.1 g/dL (31.6-35.5); Mean Corpuscular Hemoglobin 25.7 pg (28.0-33.3); Mean Corpuscular Volume 88.4 fL (83.0-100.0); Monocytes # 1.9 K/mcL (0.0-1.3); Neutrophils # 23.1 K/mcL (1.6-8.9); Platelet Count 438 K/mcL (140-400); Red Blood Count 3.03 M/mcL (3.82-4.97); Red Cell Distribution Width 17.6 % (11.5-14.5)
[2017-09-09 04:50] LABS: BUN/Creatinine Ratio 21 (6-26); Blood Urea Nitrogen 17 mg/dL (8-23); Calcium 8.4 mg/dL (8.6-10.3); Carbon Dioxide 25 mEq/L (23-29); Chloride 109 mEq/L (98-107); Glucose 117 mg/dL (70-105); Osmolality,Calculated 295 (280-300); Potassium 3.5 mEq/L (3.5-5.1); Sodium 141 mEq/L (136-145); eGFR For African Americans > 60 (> 60); eGFR For Non-African Americans > 60 (> 60)
[2017-09-09 05:02] LABS: Platelet Estimate Increased (Normal)
[2017-09-09] MEDS: Ipratropium/Albuterol Neb 3 ML IH SCH ×6 (05:40→23:43)
[2017-09-09] MEDS: *HR* Enoxaparin 30 MG/0.3 ML SYRINGE SQ SCH (06:15)
[2017-09-09] MEDS: amLODIPine 5 MG TABLET PO SCH (08:04)
[2017-09-09] MEDS: Lisinopril 20 MG TABLET PO SCH (08:04)
[2017-09-09] MEDS ORDERED: Vancomycin 500 MG in D5% in Water 250 ML IVPB SCH (10:00)
--- NOTE | 2017-09-09 10:03 | Internal Med Progress Note ---
Date of Encounter: 09/09/17 Time of Encounter: 10:00 - Assessment and plan (1) Acute respiratory failure with hypoxia Current Visit: No Status: Acute Assessment and plan: currently she is on 2 lit o2 her Spo2 in mid 80's now, so changed to 3 lit Cont empirical abx Levaquin + Zosyn for anaerobic coverage too since her WBC still elevated and had fever spike added Vancomycin suspecting possible aspiration pneumonia will f/u on sputum cx and blood cx resp viral panel - Negative Influenza A & B , Strep PNA are negative cont duoneb since her wheezing seems to be little worse today added low dose steroids today (2) Pneumonia Current Visit: No Status: Acute Assessment and plan: mostly bacterial.. also concerned for post obstructive and possible aspiration she is high risk for aspiration.. Image findings also consistent with aspiration Pulmonary on board cont empirical axb Levaquin for atypical coverage, also added zosyn for broad spec coverage Qualifiers: Pneumonia type: due to unspecified organism Laterality: right Lung location: upper lobe of lung Qualified Code(s): J18.1 - Lobar pneumonia, unspecified organism (3) COPD exacerbation Current Visit: No Status: Acute Assessment and plan: mild COPD exacerbation since she does have worsening wheezing add low dose systemic steroids cont Duoneb also started her on INH steroids need to f/u with Pulm as an out pt (4) Cachexia Current Visit: No Status: Acute Assessment and plan: mostly due to lung cancer.. and poor dietary habits Audit Associate consulted (5) Protein-calorie malnutrition, severe Current Visit: No Status: Acute (6) Leukocytosis Current Visit: No Status: Acute Assessment and plan: could be reactive Qualifiers: Qualified Code(s): D72.829 - Elevated white blood cell count, unspecified (7) Mass of upper lobe of right lung Current Visit: Yes Status: Acute Assessment and plan: inc in size consulted Heme Onc for further eval (8) Postobstructive pneumonia Current Visit: Yes Status: Acute (9) Squamous cell carcinoma of right lung Current Visit: Yes Status: Chronic (10) Diabetes mellitus Current Visit: Yes Status: Chronic Assessment and plan: Pt denied of any previous h/o DM2 on ISS Qualifiers: Diabetes mellitus type: type 2 Diabetes mellitus complication status: without complication Diabetes mellitus half-way insulin use: without half-way use Qualified Code(s): E11.9 - Type 2 diabetes mellitus without complications - Subjective Interval history: Ms. Rogers is a 87 year old female with PMH of right upper lobe lung cancer ( last treatment July 2016; continues to be followed by oncology), diabetes, GERD, PUD, hypertension, PCM, Failure to thrive pt who presented to ER with fever, chills and dry cough from last few days. As per pt she was never really got better since her last hospitalization before . Her CT of chest in the ER showed mass consolidation in RUL which is increased in size, destructive lucent lesions of adjacent ribs. She was admitted in the hospital and started her on empirical abx and frequent duoneb. She still feels moderate SOB and FINCH. Denied any CP. Still has cough. had low grade temp y/d @ 100.0 - Constitutional Vitals: Temp Pulse Resp BP Pulse Ox 98.1 F 88 18 132/64 99 09/09/17 06:42 09/09/17 06:42 09/09/17 07:59 09/09/17 06:42 09/09/17 07:59 General appearance: Present: A&O X 3, loss of weight, answers questions appropriately - Head Head exam: Present: atraumatic, normal inspection - Neck Neck exam general surgery: Present: supple - Respiratory Respiratory exam: Present: decreased breath sounds, respiratory distress (mild) , wheezes (moderate to severe). Absent: rales - Cardiovascular Cardiovascular exam: Present: RRR, +S1, +S2 - GI/Abdominal GI/Abdominal exam: Present: normal bowel sounds, soft. Absent: rebound, rigid, tenderness - Extremities Exam Extremities exam: Absent: calf tenderness, pedal edema, tenderness - Back Exam Back exam: Absent: CVA tenderness (L), CVA tenderness (R) - Psychiatric Psychiatric exam: Present: normal affect, normal mood Internal Medicine: Result - Labs CBC & Chem 7: 09/09/17 04:26 09/09/17 04:26 Labs: Short CBC 09/09/17 Range/Units 04:26 WBC 26.7 H (4.3-11.1) K/mcL Hgb 7.8 L (11.5-15.4) g/dL Hct 26.8 L (35.3-44.9) % Plt Count 438 H (140-400) K/mcL Neutrophils # 23.1 H (1.6-8.9) K/mcL BMP 09/09/17 04:26 Sodium 141 Potassium 3.5 Chloride 109 H Carbon Dioxide 25 BUN 17 Creatinine 0.81 Glucose 117 H Calcium 8.4 L Consult Discharge Plan - Plan Referrals: Otilia Coffey DO [Primary Care Provider] -
[2017-09-09] MEDS: MethylPREDNISolone 40 MG/ML VIAL IVP SCH ×2 (10:47→17:53)
[2017-09-09] MEDS: Budesonide Neb 0.5 MG/2 ML IH SCH ×2 (11:29→20:47)
[2017-09-09] MEDS: Vancomycin 500 MG in D5% in Water 100 ML IVPB SCH (12:06)
[2017-09-09] MEDS: Mirtazapine 15 MG TABLET PO SCH (21:23)
[2017-09-10] MEDS: Piperacillin/Tazobactam 3.375 GM/200 ML BAG IVPB SCH ×3 (03:31→19:09)
[2017-09-10] MEDS: Ipratropium/Albuterol Neb 3 ML IH SCH ×6 (04:14→23:49)
[2017-09-10] MEDS: MethylPREDNISolone 40 MG/ML VIAL IVP SCH ×2 (05:37→18:05)
[2017-09-10] MEDS: *HR* Enoxaparin 30 MG/0.3 ML SYRINGE SQ SCH (05:38)
[2017-09-10 07:03] LABS: Basophils # 0.1 K/mcL (0.0-0.2); Basophils % 0.2 %; Hematocrit 28.4 % (35.3-44.9); Hemoglobin 8.3 g/dL (11.5-15.4); Immature Granulocytes % 2.3 % (0-4); Lymphocytes # 0.6 K/mcL (0.6-4.6); Lymphocytes % 2.7 %; Mean Corpuscular HGB Conc 29.2 g/dL (31.6-35.5); Mean Platelet Volume 10.1 fL (9.4-12.4); Monocytes # 0.5 K/mcL (0.0-1.3); Monocytes % 2.1 %; Neutrophils # 20.2 K/mcL (1.6-8.9); Platelet Count 465 K/mcL (140-400); Red Blood Count 3.19 M/mcL (3.82-4.97); Red Cell Distribution Width 17.5 % (11.5-14.5); Segmented Neutrophils % 92.7 %
[2017-09-10 07:47] LABS: BUN/Creatinine Ratio 31 (6-26); Blood Urea Nitrogen 23 mg/dL (8-23); Calcium 8.5 mg/dL (8.6-10.3); Carbon Dioxide 27 mEq/L (23-29); Chloride 109 mEq/L (98-107); Glucose 132 mg/dL (70-105); Osmolality,Calculated 300 (280-300); Potassium 3.7 mEq/L (3.5-5.1); Sodium 142 mEq/L (136-145); eGFR For African Americans > 60 (> 60); eGFR For Non-African Americans > 60 (> 60)
[2017-09-10] MEDS: amLODIPine 5 MG TABLET PO SCH (09:58)
[2017-09-10] MEDS: Lisinopril 20 MG TABLET PO SCH (09:59)
[2017-09-10] MEDS: Levofloxacin 750 MG/150 ML 750 MG/150 ML BAG IVPB SCH (10:00)
--- NOTE | 2017-09-10 10:52 | Internal Med Progress Note ---
Date of Encounter: 09/10/17 Time of Encounter: 10:49 - Assessment and plan (1) Acute respiratory failure with hypoxia Current Visit: No Status: Acute Assessment and plan: improving slowly Cont empirical abx Levaquin + Zosyn for anaerobic coverage too since her WBC still elevated and had fever spike added Vancomycin suspecting possible aspiration pneumonia will f/u on sputum cx blood cx no growth so far resp viral panel - Negative Influenza A & B , Strep PNA are negative cont duoneb will start tapering her steroids (2) Dysphagia Current Visit: Yes Status: Acute Assessment and plan: high risk for aspiration Speech consulted need video swallow eval Pt is willing to go for PEG if she can not take PO intake Qualifiers: Qualified Code(s): R13.10 - Dysphagia, unspecified (3) Pneumonia Current Visit: No Status: Acute Assessment and plan: mostly bacterial.. also concerned for post obstructive and possible aspiration she is high risk for aspiration.. Image findings also consistent with aspiration Pulmonary on board cont empirical axb Levaquin for atypical coverage, also added zosyn for broad spec coverage Qualifiers: Pneumonia type: due to unspecified organism Laterality: right Lung location: upper lobe of lung Qualified Code(s): J18.1 - Lobar pneumonia, unspecified organism (4) COPD exacerbation Current Visit: No Status: Acute Assessment and plan: mild COPD exacerbation started tapering her systemic steroids cont Duoneb also started her on INH steroids need to f/u with Pulm as an out pt (5) Cachexia Current Visit: No Status: Acute Assessment and plan: mostly due to lung cancer.. and poor dietary habits Molder Machine consulted (6) Protein-calorie malnutrition, severe Current Visit: No Status: Acute (7) Leukocytosis Current Visit: No Status: Acute Assessment and plan: could be reactive Qualifiers: Qualified Code(s): D72.829 - Elevated white blood cell count, unspecified (8) Mass of upper lobe of right lung Current Visit: Yes Status: Acute Assessment and plan: inc in size Heme Onc on board (9) Postobstructive pneumonia Current Visit: Yes Status: Acute (10) Squamous cell carcinoma of right lung Current Visit: Yes Status: Chronic (11) Diabetes mellitus Current Visit: Yes Status: Chronic Assessment and plan: Pt denied of any previous h/o DM2 on ISS Qualifiers: Diabetes mellitus type: type 2 Diabetes mellitus complication status: without complication Diabetes mellitus skilled nursing insulin use: without professional application designer use Qualified Code(s): E11.9 - Type 2 diabetes mellitus without complications - Subjective Interval history: Ms. Rogers is a 87 year old female with PMH of right upper lobe lung cancer ( last treatment July 2016; continues to be followed by oncology), diabetes, GERD, PUD, hypertension, PCM, Failure to thrive pt who presented to ER with fever, chills and dry cough from last few days. As per pt she was never really got better since her last hospitalization before . Her CT of chest in the ER showed mass consolidation in RUL which is increased in size, destructive lucent lesions of adjacent ribs. She was admitted in the hospital and started her on empirical abx and frequent duoneb. She feels little better today. Denied any CP. Still has cough.no more fever spikes - Constitutional Vitals: Temp Pulse Resp BP Pulse Ox 97.3 F L 90 16 129/77 99 09/10/17 08:10 09/10/17 08:10 09/10/17 08:10 09/10/17 08:10 09/10/17 08:10 General appearance: Present: A&O X 3, loss of weight, answers questions appropriately - Head Head exam: Present: atraumatic, normal inspection - Neck Neck exam general surgery: Present: supple - Respiratory Respiratory exam: Present: decreased breath sounds, wheezes (moderate). Absent : rales, respiratory distress, rhonchi - Cardiovascular Cardiovascular exam: Present: RRR, +S1, +S2. Absent: tachycardia - GI/Abdominal GI/Abdominal exam: Present: normal bowel sounds, soft. Absent: rebound, rigid, tenderness - Extremities Exam Extremities exam: Absent: calf tenderness, pedal edema, tenderness - Back Exam Back exam: Absent: CVA tenderness (L), CVA tenderness (R) - Neurological Exam Neurological exam: Present: alert, oriented X3 - Psychiatric Psychiatric exam: Present: normal affect, normal mood Internal Medicine: Result - Labs CBC & Chem 7: 09/10/17 06:23 09/10/17 06:23 Labs: Short CBC 09/10/17 Range/Units 06:23 WBC 21.8 H (4.3-11.1) K/mcL Hgb 8.3 L (11.5-15.4) g/dL Hct 28.4 L (35.3-44.9) % Plt Count 465 H (140-400) K/mcL Neutrophils # 20.2 H (1.6-8.9) K/mcL BMP 09/10/17 06:23 Sodium 142 Potassium 3.7 Chloride 109 H Carbon Dioxide 27 BUN 23 Creatinine 0.74 Glucose 132 H Calcium 8.5 L Consult Discharge Plan - Plan Referrals: Otilia Coffey DO [Primary Care Provider] -
[2017-09-10] MEDS: Budesonide Neb 0.5 MG/2 ML IH SCH ×2 (11:13→19:58)
[2017-09-10] MEDS: Vancomycin 500 MG in D5% in Water 100 ML IVPB SCH (13:29)
[2017-09-10] MEDS: Acetaminophen 325 MG TABLET PO PRN (13:33)
[2017-09-10] MEDS: Mirtazapine 15 MG TABLET PO SCH (21:36)
[2017-09-11] MEDS: Piperacillin/Tazobactam 3.375 GM/200 ML BAG IVPB SCH ×3 (03:24→18:22)
[2017-09-11] MEDS: Ipratropium/Albuterol Neb 3 ML IH SCH ×6 (03:27→23:38)
[2017-09-11 05:44] LABS: Hematocrit 27.2 % (35.3-44.9); Mean Corpuscular HGB Conc 29.4 g/dL (31.6-35.5); Mean Corpuscular Hemoglobin 26.1 pg (28.0-33.3); Mean Corpuscular Volume 88.9 fL (83.0-100.0); Mean Platelet Volume 10.3 fL (9.4-12.4); Platelet Count 467 K/mcL (140-400); Red Blood Count 3.06 M/mcL (3.82-4.97); Red Cell Distribution Width 17.4 % (11.5-14.5)
[2017-09-11 06:05] LABS: Lymphocytes # 1.7 K/mcL (0.6-4.6); Monocytes # 1.7 K/mcL (0.0-1.3); Neutrophils # 25.3 K/mcL (1.6-8.9); Platelet Estimate Normal (Normal)
[2017-09-11] MEDS: Acetaminophen 325 MG TABLET PO PRN ×2 (06:19→22:15)
[2017-09-11] MEDS: *HR* Enoxaparin 30 MG/0.3 ML SYRINGE SQ SCH (06:24)
[2017-09-11] MEDS: MethylPREDNISolone 40 MG/ML VIAL IVP SCH ×2 (06:24→18:21)
[2017-09-11] MEDS: Budesonide Neb 0.5 MG/2 ML IH SCH ×2 (07:40→19:55)
[2017-09-11] MEDS: Lisinopril 20 MG TABLET PO SCH (08:12)
[2017-09-11] MEDS: amLODIPine 5 MG TABLET PO SCH (08:12)
[2017-09-11] MEDS: Vancomycin 500 MG in D5% in Water 100 ML IVPB SCH (11:34)
[2017-09-11] MEDS ORDERED: Vancomycin 500 MG in D5% in Water (Mini-Bag+) 100 ML IVPB ONE (13:00)
--- NOTE | 2017-09-11 13:32 | Internal Med Progress Note ---
Date of Encounter: 09/11/17 Time of Encounter: 13:31 - Assessment and plan (1) Acute respiratory failure with hypoxia Current Visit: No Status: Acute Assessment and plan: improving slowly Cont empirical abx Levaquin + Zosyn for anaerobic coverage too Leukocytosis worsened, will continue IV Vancomycin in addition to the above abx pulmonary follow up requested, given worsening leukocytosis and increase O2 demand suspecting possible aspiration pneumonia will f/u on sputum cx blood cx no growth so far resp viral panel - Negative Influenza A & B , Strep PNA are negative cont duoneb continue tapering her steroids (2) Cachexia Current Visit: No Status: Acute Assessment and plan: mostly due to lung cancer.. and poor dietary habits Floor Inspector consulted (3) COPD exacerbation Current Visit: No Status: Acute Assessment and plan: mild COPD exacerbation continue tapering her systemic steroids cont Duoneb continue INH steroids need to f/u with Pulm as an out pt pt will need home oxygen qualification prior to discharge as she is not on home oxygen support (4) Diabetes mellitus Current Visit: Yes Status: Chronic Assessment and plan: continue sliding scale insulin algorithm monitor FS and BG last HbA1C: 5.5 pt not on any antihyperglycemic agents at home will closely monitor FS while on steroid therapy Qualifiers: Diabetes mellitus type: type 2 Diabetes mellitus complication status: without complication Diabetes mellitus termite control service representative insulin use: without prison use Qualified Code(s): E11.9 - Type 2 diabetes mellitus without complications (5) DVT prophylaxis Current Visit: Yes Status: Acute Assessment and plan: Lovenox SQ (6) Dysphagia Current Visit: Yes Status: Acute Assessment and plan: high risk for aspiration Speech therapy consultation appreciated started on thin liquids and regular texture diet. 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 also concerned for post obstructive and possible aspiration she is high risk for aspiration.. Image findings also consistent with aspiration Pulmonary on board cont empirical axb Levaquin for atypical coverage, zosyn and vancomycin for broad spec coverage Qualifiers: Pneumonia type: due to unspecified organism Laterality: right Lung location: upper lobe of lung Qualified Code(s): J18.1 - Lobar pneumonia, unspecified organism (11) Postobstructive pneumonia Current Visit: Yes Status: Acute (12) Protein-calorie malnutrition, severe Current Visit: No Status: Acute (13) Squamous cell carcinoma of right lung Current Visit: Yes Status: Chronic - Subjective Interval history: Pt seen and examined at bedside. Resting in bed and reports of feeling better compared to previous day Saturating well on 2L NC, reports of not being on home oxygen. - Constitutional Vitals: Temp Pulse Resp BP Pulse Ox 98.3 F 98 18 149/85 98 09/11/17 10:44 09/11/17 10:44 09/11/17 11:26 09/11/17 10:44 09/11/17 11:26 General appearance: Present: cachectic, A&O X 3 (frail appearing elderly female ), no acute distress, loss of weight, answers questions appropriately - Head Head exam: Present: atraumatic, normocephalic - Eye Eye exam: Present: conjuntiva pink, sclera anicteric - Respiratory Respiratory exam: Absent: respiratory distress, wheezes (equal air entry bilaterally ) - Cardiovascular Cardiovascular exam: Present: RRR, +S1, +S2. Absent: diastolic murmur, gallop, rubs, systolic murmur - GI/Abdominal GI/Abdominal exam: Present: normal bowel sounds, soft, no peritoneal signs. Absent: distended, tenderness - Extremities Exam Extremities exam: Present: warm, radial pulses palpable and symmetrical. Absent : calf tenderness, cyanotic, pedal edema - Neurological Exam Neurological exam: Present: alert, oriented X3 - Psychiatric Psychiatric exam: Present: normal affect, normal mood Internal Medicine: Result - Labs CBC & Chem 7: 09/11/17 04:31 09/10/17 06:23 Labs: Short CBC 09/11/17 Range/Units 04:31 WBC 28.7 H (4.3-11.1) K/mcL Hgb 8.0 L (11.5-15.4) g/dL Hct 27.2 L (35.3-44.9) % Plt Count 467 H (140-400) K/mcL Neutrophils # 25.3 H (1.6-8.9) K/mcL Consult Discharge Plan - Plan Referrals: Otilia Coffey DO [Primary Care Provider] -
--- NOTE | 2017-09-11 15:29 | Pulmonology Progress Note ---
Date of Encounter: 09/11/17 Time of Encounter: 14:50 Assessment and Plan (1) Pneumonia Current Visit: No Status: Acute Patient stated clinically she is feeling better on broad-spectrum antibiotic and to obtain sputum culture if possible. I have seen patient in the presence of the nurse and offered her bronchoscopy since patient is at risk of having atypical infections and it could be all from underlying mass. Patient stated she is feeling better and to continue antibiotics with starting de-escalation and also taper steroids and FiO2 to keep SPO2 around 90%. Qualifiers: Pneumonia type: due to unspecified organism Laterality: right Lung location: upper lobe of lung Qualified Code(s): J18.1 - Lobar pneumonia, unspecified organism (2) Leukocytosis Current Visit: No Status: Acute This could be altered multi-factorial and patient is on systemic steroid taper steroid and monitor WBC. 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 Subjective Principal diagnosis: Pneumonia Interval history: Patient stated she is feeling better and clinically she started to feel her symptoms are better Objective PUL Vital signs: Last Vital Signs Temp 97.8 F 09/11/17 15:00 Pulse 89 09/11/17 15:00 Resp 16 09/11/17 15:00 BP 135/64 09/11/17 15:00 Pulse Ox 98 09/11/17 15:00 General appearance: no acute distress Eyes: nonicteric ENT: oropharynx moist Neck: supple Effort: normal Auscultation: bilateral: diminished breath sounds Percussion: bilateral: not dull Cardiovascular: regular rate and rhythm Gastrointestinal: normoactive bowel sounds Extremities: no cyanosis normal mental status mood appropriate Results - Laboratory Findings CBC and BMP: 09/11/17 04:31 09/10/17 06:23 Abnormal lab findings: Abnormal lab results WBC 28.7 K/mcL (4.3-11.1) H 09/11/17 04:31 RBC 3.06 M/mcL (3.82-4.97) L 09/11/17 04:31 Hgb 8.0 g/dL (11.5-15.4) L 09/11/17 04:31 Hct 27.2 % (35.3-44.9) L 09/11/17 04:31 MCH 26.1 pg (28.0-33.3) L 09/11/17 04:31 MCHC 29.4 g/dL (31.6-35.5) L 09/11/17 04:31 RDW 17.4 % (11.5-14.5) H 09/11/17 04:31 Plt Count 467 K/mcL (140-400) H 09/11/17 04:31 Band Neutrophils % 10.0 % (0-4) H 09/11/17 04:31 Neutrophils # 25.3 K/mcL (1.6-8.9) H 09/11/17 04:31 Monocytes # 1.7 K/mcL (0.0-1.3) H 09/11/17 04:31 Chloride 109 mEq/L (98-107) H 09/10/17 06:23 BUN/Creatinine Ratio 31 (6-26) H 09/10/17 06:23 Glucose 132 mg/dL (70-105) H 09/10/17 06:23 POC Glucose 156 (58-89) H 09/07/17 18:37 Calcium 8.5 mg/dL (8.6-10.3) L 09/10/17 06:23 Urine Clarity Cloudy (Clear) A 09/06/17 16:08 Ur Specific [place] 1.026 (1.010-1.025) H 09/06/17 16:08 Urine Protein 30 mg/dL (Neg-Trace) H 09/06/17 16:08 Ur Leukocyte Esterase Small (Negative) H 09/06/17 16:08 Urine Microscopic RBC 5-15 per hpf (0-3) H 09/06/17 16:08 Urine Microscopic WBC 30-50 per hpf (0-3) H 09/06/17 16:08 Ur Squamous Epith Cells Many per lpf (None-Few) H 09/06/17 16:08 Hyaline Casts Moderate per lpf (None-Few) H 09/06/17 16:08 Vancomycin Trough 6.1 mcg/mL (10-20) L 09/11/17 10:21 - Diagnostic Findings CT scan - chest: report reviewed, image reviewed - Clinical Findings Intake & Output: Intake & Output 09/10/17 09/11/17 09/11/17 23:59 07:59 15:59 Intake Total 757 / 757 200 / 200 560 / 560 Output Total 0 / 0 0 / 0 300 / 300 Balance 757 / 757 200 / 200 260 / 260 Weight 34.9 kg Consult Discharge Plan - Plan Referrals: Otilia Coffey DO [Primary Care Provider] -
--- NOTE | 2017-09-11 15:59 | Electrocardiograph Report ---
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
[2017-09-11] MEDS: Mirtazapine 15 MG TABLET PO SCH (22:16)
[2017-09-12] MEDS: Piperacillin/Tazobactam 3.375 GM/200 ML BAG IVPB SCH ×3 (02:22→19:00)
[2017-09-12] MEDS: Ipratropium/Albuterol Neb 3 ML IH SCH ×3 (03:39→11:30)
[2017-09-12] MEDS: *HR* Enoxaparin 30 MG/0.3 ML SYRINGE SQ SCH (05:28)
[2017-09-12] MEDS: MethylPREDNISolone 40 MG/ML VIAL IVP SCH ×2 (05:28→18:34)
[2017-09-12] MEDS: Ondansetron 4 MG/2 ML VIAL IVP PRN (05:28)
[2017-09-12 06:19] LABS: Basophils % 0.2 %; Hematocrit 28.3 % (35.3-44.9)
[2017-09-12 06:21] LABS: Basophils # 0.1 K/mcL (0.0-0.2); Immature Granulocytes % 2.8 % (0-4); Lymphocytes # 0.6 K/mcL (0.6-4.6); Lymphocytes % 1.9 %; Mean Corpuscular HGB Conc 28.3 g/dL (31.6-35.5); Mean Corpuscular Hemoglobin 25.5 pg (28.0-33.3); Mean Corpuscular Volume 90.1 fL (83.0-100.0); Mean Platelet Volume 10.5 fL (9.4-12.4); Monocytes # 1.5 K/mcL (0.0-1.3); Neutrophils # 26.4 K/mcL (1.6-8.9); Platelet Count 447 K/mcL (140-400); Red Blood Count 3.14 M/mcL (3.82-4.97); Red Cell Distribution Width 17.8 % (11.5-14.5); Segmented Neutrophils % 90.1 %
[2017-09-12 06:25] LABS: BUN/Creatinine Ratio 32 (6-26); Blood Urea Nitrogen 23 mg/dL (8-23); Calcium 8.5 mg/dL (8.6-10.3); Carbon Dioxide 29 mEq/L (23-29); Chloride 109 mEq/L (98-107); Glucose 85 mg/dL (70-105); Osmolality,Calculated 301 (280-300); Phosphorous 2.7 mg/dL (2.7-4.5); Potassium 3.6 mEq/L (3.5-5.1); Sodium 144 mEq/L (136-145); eGFR For African Americans > 60 (> 60); eGFR For Non-African Americans > 60 (> 60)
[2017-09-12 06:49] LABS: Anisocytosis 1+ (Not Present); Platelet Estimate Increased (Normal)
[2017-09-12 06:50] LABS: Macrocytosis Present (Not Present); Microcytosis Present (Not Present)
[2017-09-12] MEDS: Budesonide Neb 0.5 MG/2 ML IH SCH ×2 (07:24→20:11)
[2017-09-12] MEDS ORDERED: Aminoglycoside Consult 1 EACH MC ONE (07:32)
[2017-09-12] MEDS: Lisinopril 20 MG TABLET PO SCH (09:24)
[2017-09-12] MEDS: amLODIPine 5 MG TABLET PO SCH (09:25)
[2017-09-12] MEDS: Levofloxacin 750 MG/150 ML 750 MG/150 ML BAG IVPB SCH (09:25)
--- NOTE | 2017-09-12 10:38 | Oncology Inp Progress Note ---
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 Squamous cell carcinoma of the right lower lobe, [id number] 2. Other hypermetabolic spiculated left upper lobe, right upper lobe, right lower lobe nodules Previous Treatment: 04/17/2016: Right lung CT guided biopsy 06/14/2016 - 07/27/2016: Right lung, hilum, mediastinum radiotherapy, 6000 cGy in 30 fractions Patient underwent radiation therapy as summarized above and declined chemotherapy, completed earlier part of this year, hospitalization due to symptoms suggestive of pneumonia. Imaging at follow up from June remained stable at that time. Prior hospitalization for pneumonia, possible progression and postobstructive versus treatment related changes in the lungs. Patients treating radiation oncologist Dr. Arnett has been updated on patients admission and CT findings. Patient also following Dr Vasquez with medical oncology mainly for iron deficiency anemia. Scheduled to follow up with radiation oncology end of September. Culture data pending, leukocytosis likely multifactorial chronic, possible reactive versus related to infection/steroid injections. Anemia status post iron injection in the past possibly related to current infectious episode-transfuse PRBC for symptomatic anemia. Iron deficient with serum iron 15, will arrange for outpatient follow up for iron infusion following resolution of acute issues. Unable to tolerate oral iron. I discussed lung finding concerning for malignancy and recommendation for bronchoscopy with patient today. She is undecided about bronch at this point but states she is interested in pursuing answer behind CT changes. She wishes to speak further with Dr. Arnett, will update Dr. Arnett and have continued discussions with patient regarding course of care. Oncology: Subj Interval history: Resting comfortably. Afebrile and non toxic appearing. Denies SOB, Chest pain or cough at this time. O2 sat 96% on room air. Denies pain. - Constitutional Vitals: Vital Signs Temp Pulse Resp BP Pulse Ox 09/12/17 06:51 97.6 F 89 18 145/72 95 09/12/17 03:34 98.1 F 97 16 167/89 96 09/11/17 22:14 100 09/11/17 19:57 16 100 09/11/17 19:52 98.8 F 91 19 144/78 97 09/11/17 15:00 97.8 F 89 16 135/64 98 09/11/17 11:26 18 98 09/11/17 10:44 98.3 F 98 19 149/85 94 Intake and Output 09/11/17 09/12/17 09/12/17 23:59 07:59 15:59 Intake Total 200 / 200 200 / 200 Output Total 200 / 200 Balance 0 / 0 200 / 200 Intake: IV Fluids 200 / 200 200 / 200 Zosyn Premix 3.375 GM/200 ML 3. 200 / 200 200 / 200 375 gm In 200 ml @ 50 mls/hr IVPB Q8H ALFREDO Rx#:[id number] Output: Urine 200 / 200 Other: Stool Size Small Moderate Stool Consistency loose soft Stool Color Brown Brown # Voids 1 Weight 35.4 kg Patient Weight 09/12/17 23:59 Weight 35.4 kg General appearance: cooperative, no acute distress, thin, no febrile - Neck Neck exam: Absent: lymphadenopathy, tenderness - Respiratory Respiratory exam: Present: decreased breath sounds, CTAB - Cardiovascular Cardiovascular exam: Present: RRR, +S1, +S2 - GI/Abdominal GI/Abdominal exam: Present: normal bowel sounds, soft. Absent: tenderness - Extremities Exam Extremities exam: Absent: pedal edema - Expanded Lower Extremity Exam Lower leg exam: Absent: swelling - Neurological Exam Neurological exam: Present: alert, oriented X3, strengths equal and symetr throughout. Absent: no focal deficits - Skin Skin exam: Present: normal color Oncology: Obj Data - Labs CBC & Chem 7: 09/12/17 04:13 09/12/17 04:13 - Impressions CT/CT chest wo con IMPRESSION: Masslike consolidation within the right upper lobe which is increased in size since the prior study worrisome for neoplasm. Destructive lucent lesions of adjacent ribs are worrisome for neoplastic involvement. D/ / Michaelle Crowder Cha, MD / Michaelle Crowder Cha, MD Interpreting Provider: Michaelle Crowder Cha, MD Consult Discharge Plan - Plan Referrals: Otilia Coffey DO [Primary Care Provider] -
[2017-09-12] MEDS: Acetaminophen 325 MG TABLET PO PRN ×2 (11:32→18:58)
[2017-09-12] MEDS ORDERED: Vancomycin 750 MG in D5% in Water 250 ML IVPB SCH (12:00)
--- NOTE | 2017-09-12 12:54 | Internal Med Progress Note ---
Date of Encounter: 09/12/17 Time of Encounter: 12:53 - Assessment and plan (1) Acute respiratory failure with hypoxia Current Visit: No Status: Acute Assessment and plan: Clinically improving, currently saturating well on 2L NC. Cont empirical abx Levaquin + Zosyn, will discontinue Vancomycin, as pt is afebrile and clinically improving pulmonary evaluation appreciated suspecting possible aspiration pneumonia blood cx final report showed no growth resp viral panel - Negative Influenza A & B , Strep PNA are negative cont duoneb continue tapering of her steroids, currently on Solumedrol 20mg IV q12h, will start PO Prednisone (2) Cachexia Current Visit: No Status: Acute Assessment and plan: mostly due to lung cancer.. and poor dietary habits Golf Course Keeper consulted (3) COPD exacerbation Current Visit: No Status: Acute Assessment and plan: mild COPD exacerbation continue tapering her systemic steroids cont Duoneb continue INH steroids need to f/u with Pulm as an out pt pt will need home oxygen qualification prior to discharge as she is not on home oxygen support (4) Diabetes mellitus Current Visit: Yes Status: Chronic Assessment and plan: continue sliding scale insulin algorithm monitor FS and BG last HbA1C: 5.5 pt not on any antihyperglycemic agents at home will closely monitor FS while on steroid therapy Qualifiers: Diabetes mellitus type: type 2 Diabetes mellitus complication status: without complication Diabetes mellitus longterm insulin use: without ferry terminal agent use Qualified Code(s): E11.9 - Type 2 diabetes mellitus without complications (5) DVT prophylaxis Current Visit: Yes Status: Acute Assessment and plan: Lovenox SQ (6) Dysphagia Current Visit: Yes Status: Acute Assessment and plan: high risk for aspiration Speech therapy consultation appreciated tolerating thin liquids and regular texture diet Qualifiers: Dysphagia type: unspecified Qualified Code(s): R13.10 - Dysphagia, unspecified (7) Hypertension Current Visit: No Status: Chronic Assessment and plan: BP within acceptable range continue home meds Qualifiers: Hypertension type: renovascular hypertension Qualified Code(s): I15.0 - Renovascular hypertension (8) Leukocytosis Current Visit: No Status: Acute Assessment and plan: could be reactive Qualifiers: Leukocytosis type: unspecified Qualified Code(s): D72.829 - Elevated white blood cell count, unspecified (9) Mass of upper lobe of right lung Current Visit: Yes Status: Acute Assessment and plan: inc in size Heme Onc on board no acute intervention recommended (10) Pneumonia Current Visit: No Status: Acute Assessment and plan: mostly bacterial.. also concerned for post obstructive and possible aspiration she is high risk for aspiration.. 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 Resting in bed and reports of feeling better compared to previous day Saturating well on 2L NC, reports of not being on home oxygen. - Constitutional Vitals: Temp Pulse Resp BP Pulse Ox 97.6 F 86 18 110/63 95 09/12/17 06:51 09/12/17 10:53 09/12/17 11:30 09/12/17 10:53 09/12/17 11:30 General appearance: Present: cachectic, A&O X 3 (frail appearing elderly female ), no acute distress, loss of weight, answers questions appropriately - Head Head exam: Present: atraumatic, normocephalic - Eye Eye exam: Present: conjuntiva pink, sclera anicteric - Respiratory Respiratory exam: Absent: respiratory distress, wheezes (equal air entry bilaterally ) - Cardiovascular Cardiovascular exam: Present: RRR, +S1, +S2. Absent: diastolic murmur, gallop, rubs, systolic murmur - GI/Abdominal GI/Abdominal exam: Present: normal bowel sounds, soft, no peritoneal signs. Absent: distended, tenderness - Extremities Exam Extremities exam: Present: warm, radial pulses palpable and symmetrical. Absent : calf tenderness, cyanotic, pedal edema - Neurological Exam Neurological exam: Present: alert, oriented X3 Internal Medicine: Result - Labs CBC & Chem 7: 09/12/17 04:13 09/12/17 04:13 Labs: Short CBC 09/12/17 Range/Units 04:13 WBC 29.3 H (4.3-11.1) K/mcL Hgb 8.0 L (11.5-15.4) g/dL Hct 28.3 L (35.3-44.9) % Plt Count 447 H (140-400) K/mcL Neutrophils # 26.4 H (1.6-8.9) K/mcL BMP 09/12/17 04:13 Sodium 144 Potassium 3.6 Chloride 109 H Carbon Dioxide 29 BUN 23 Creatinine 0.72 Glucose 85 Calcium 8.5 L - Impressions Impressions Videofluoroscopic Swallow 09/11/17 11:22 IMPRESSION: Occasional episodes of penetration of thin barium. No evidence of aspiration. Please see separate speech pathology report for full discussion of findings and recommendations. D/ / 09/11/2017 16:17:36 Tank Pascual MD / smiley Interpreting Provider: Tank Pascual MD Consult Discharge Plan - Plan Referrals: Otilia Coffey DO [Primary Care Provider] -
[2017-09-12] MEDS ORDERED: Ipratropium/Albuterol Neb 3 ML IH PRN (15:04)
--- NOTE | 2017-09-12 16:57 | Rad Onc Dictation ---
Radiation Oncology Dictation Date of Service: 09/12/17 - Progress Note Comments: Sherly was seen today in her hospital room. Her and son were not present. She is well known to me for her non-small cell lung cancer after completing definitive radiotherapy 07/2016. Over the last several serial chest CTs there has been concern over local progression of disease in the right lung. This appears more definitive on the current study with now adjacent rib involvement. Sherly has been on and off antibiotics for several months with recurrent bronchitis/pneumonia. Dr. Spears has offered her a bronchoscopy. She has been reluctant to proceed with this. I do think this may be beneficial given her recurrent infections likely from obstruction from the recurrent tumor. I think she is leaning toward having it done and I encouraged her to discuss with the team tomorrow. We also discussed prognosis at length today. With recurrent disease, any treatment would be palliative. There is no role for further radiotherapy. She has previously refused systemic therapy and maintains this opinion today. We began to discuss some end-of-life issues, particularly regarding CODE STATUS. At this point, she was not ready to make a decisions regarding changing her CODE STATUS. I think this is quite reasonable, particularly given that her family was not present. I have encouraged her to start talking to her and son about these issues as well. Unfortunately, I'm going out of town for the next 10 days. Anyone, patient or public works director alike, is welcome to call me while I'm out. Otherwise, Nat Rodríguez will continue to follow with the patient from an oncology standpoint. Follow-up with me can be scheduled on a short interval after discharge. Francisco Javier Arnett MD Radiation Oncology This report was generated using [employer].
[2017-09-12] MEDS: *HR* LORazepam 1 MG TABLET PO PRN (20:39)
[2017-09-12] MEDS: Mirtazapine 15 MG TABLET PO SCH (22:56)
[2017-09-13] MEDS: Piperacillin/Tazobactam 3.375 GM/200 ML BAG IVPB SCH ×3 (03:00→18:02)
[2017-09-13 03:53] LABS: Basophils % 0.2 %; Immature Granulocytes % 1.9 % (0-4)
[2017-09-13 03:54] LABS: Basophils # 0.1 K/mcL (0.0-0.2); Hematocrit 29.2 % (35.3-44.9); Hemoglobin 8.4 g/dL (11.5-15.4); Lymphocytes # 0.6 K/mcL (0.6-4.6); Mean Corpuscular HGB Conc 28.8 g/dL (31.6-35.5); Mean Corpuscular Hemoglobin 25.6 pg (28.0-33.3); Mean Platelet Volume 10.5 fL (9.4-12.4); Monocytes # 1.2 K/mcL (0.0-1.3); Monocytes % 4.1 %; Platelet Count 401 K/mcL (140-400); Red Blood Count 3.28 M/mcL (3.82-4.97); Red Cell Distribution Width 17.6 % (11.5-14.5); Segmented Neutrophils % 91.8 %
[2017-09-13 04:14] LABS: BUN/Creatinine Ratio 30 (6-26); Blood Urea Nitrogen 19 mg/dL (8-23); Calcium 8.3 mg/dL (8.6-10.3); Carbon Dioxide 30 mEq/L (23-29); Chloride 107 mEq/L (98-107); Glucose 99 mg/dL (70-105); Magnesium 1.8 mg/dL (1.6-2.6); Osmolality,Calculated 296 (280-300); Phosphorous 2.3 mg/dL (2.7-4.5); Potassium 3.6 mEq/L (3.5-5.1); Sodium 142 mEq/L (136-145); eGFR For African Americans > 60 (> 60); eGFR For Non-African Americans > 60 (> 60)
[2017-09-13 04:21] LABS: Neutrophils # 26.2 K/mcL (1.6-8.9)
[2017-09-13 04:22] LABS: Hypochromasia Present (Not Present); Platelet Estimate Increased (Normal)
[2017-09-13] MEDS: *HR* Enoxaparin 30 MG/0.3 ML SYRINGE SQ SCH (05:48)
[2017-09-13] MEDS: Budesonide Neb 0.5 MG/2 ML IH SCH ×2 (07:49→21:36)
[2017-09-13] MEDS: predniSONE 20 MG TABLET PO SCH (07:50)
[2017-09-13] MEDS: Lisinopril 20 MG TABLET PO SCH (07:50)
[2017-09-13] MEDS: amLODIPine 5 MG TABLET PO SCH (07:50)
--- NOTE | 2017-09-13 09:16 | Palliative - Consult Note ---
Date of Encounter: 09/13/17 Time of Encounter: 08:45 - Assessment and Plan (1) Dyspnea Current Visit: No Status: Acute Assessment and plan: Patient with pneumonia. ? obstructive d/t NSC lung cancer. Patient reports improvement. Plan: - Supplemental O2 - Nebulizers - Steroids - Antibiotics - Duonebs - position for comfort with HOB up Qualifiers: Dyspnea type: shortness of breath Qualified Code(s): R06.02 - Shortness of breath; R06.00 - Dyspnea, unspecified; R06.01 - Orthopnea (2) Pain Current Visit: Yes Status: Acute Assessment and plan: Patien c/o dull ache to bilateral hips. Patient with past hip repair to right hip. Patient with allergies and desires to only take tylenol. Changed to tylenol 500mg PRN. Rates ache at 4/10. Positioned for comfort. No radiation, no numbness or tingling. ROM weak bilaterally to hips. Will consider Pt and OT. (3) Anxiety Current Visit: No Status: Acute Assessment and plan: PRN Lorazepam - Patient had one dose in past 24 hrs. (4) Goals of care, counseling/discussion Current Visit: Yes Status: Acute Assessment and plan: Conducted bedside consult discussion with patient. No family present. Patient reports having advanced directives and states that daughter is POA and that she lives in [place]. I requested her contact information and patient states that she will need to get her contact number. She states daughter was just home for [place] and that she doesn't want her called. She did agree to get her contact information for me as she confirms that she is her POA. Patient reports that she lives with her Vaibhav and that he is in decent health. She reports having a past hip fracture that has left her using a cane/walker at times. She reports doing well at home with getting around. She will call Vaibhav to bring in copies of living will and DPOA forms. I f/u on Dr. Arnett discussion from yesterday and patient now agrees to have Bronchoscopy. She understands that this will assist with treating infections. Patient still thinking over her Code Status desires and will further discuss with her Vaibhav #[phone]. Patient overall goal is to return home with . Will f/u with Dr. Spears to discuss possible Bronchoscopy. 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 Rogers is a 87 year old female with PMH of right upper lobe lung cancer ( last treatment July 2016; continues to be followed by oncology), diabetes, GERD, PUD, hypertension, PCM, Failure to thrive pt who presented with fever, chills and dry cough from last few days. As per pt she was never really got better since her last hospitalization before . Her CT of chest in the ER showed mass consolidation in RUL which is increased in size, destructive lucent lesions of adjacent ribs. She was admitted in the hospital and started her on empirical abx and frequent duoneb. This palliative care consult is for goals of care discussion and code status discussion. CC: Janett Son MD Past Med Surg Social Fam HX - Past Medical History Attestation: Yes The following information was validated with the patient. Source: patient, old records reviewed, nursing notes reviewed Medical history: cancer, diabetes, GERD, hypertension, peripheral artery disease , renal disease, other Psychiatric history: anxiety - Past Surgical History Surgical History: carotid endarterectomy, hip replacement - Social History Smoking Status: Former smoker Smokeless Tobacco Status: No Alcohol use: none Drug use: none Occupational status: retired Current living situation: Home, With Family Activity Level: Uses cane/walker Recent Out of Country Travel Within the Last 8 Weeks: No Exposure or Possible Exposure to Illness During Travel: No - Family History Mother Hx Family Neurologic Disorders: Yes (stroke) Medications and Allergies Ascorbic Acid [Vitamin C] 1,000 mg PO DAILY 08/27/15 [History] Calcium Carbonate/Vitamin D3 [Calcium 600 + Vit D Softgel] 1 each PO DAILY 08/27 [History] LORazepam [Ativan] 1 mg PO Q6-8H PRN 08/27/15 [History] Multivit-Min/FA/Lycopen/Lutein [Centrum Silver Tablet] 1 each PO DAILY 12/18/15 [History] Mirtazapine 7.5 mg PO HS 03/26/17 [History] Clopidogrel [Plavix] 75 mg PO DAILY 05/01/17 [History] Benzonatate [Tessalon] 100 mg PO TID PRN #90 capsule 07/09/17 [Rx] Albuterol Sulfate [Albuterol Inhaler] 2 puff IH Q4HR PRN #0 07/30/17 [Rx] amLODIPine [Norvasc] 5 mg PO DAILY #30 tablet 07/30/17 [Rx] Ipratropium/Albuterol Neb [Duoneb] 3 ml IH Q2H PRN 09/06/17 [History] Ipratropium/Albuterol Neb [Duoneb] 3 ml IH QID 09/06/17 [History] Lisinopril [Zestril] 10 mg PO QPM 09/06/17 [History] Lisinopril [Zestril] 20 mg PO QAM 09/06/17 [History] Omeprazole [PriLOSEC] 40 mg PO DAILY 09/06/17 [History] 3 Allergy/AdvReac Type Severity Reaction Status Date / Time metronidazole [From Flagyl] Allergy Agitated Verified 08/28/17 16:47 Oxycodone [From Percocet] Allergy Agitated Verified 08/28/17 16:47 codeine AdvReac See Verified 08/28/17 16:47 Comments All systems: reviewed and no additional remarkable complaints except as stated ( SOB, weakness) - Constitutional Constitutional ROS PAL: decreased appetite, weight loss - EENT Eyes: requires corrective lenses - Cardiovascular Cardiovascular ROS: dyspnea on exertion - Respiratory Respiratory: cough, dyspnea on exertion - Musculoskeletal Musculoskeletal ROS IM: muscle weakness - Neurological Neurological ROS: weakness - Psychiatric Psychiatric general PM: anxiety Palliative Care-Exam - Constitutional Vitals: Temp Pulse Resp BP Pulse Ox 98.3 F 98 16 164/98 94 09/13/17 06:09 09/13/17 06:09 09/13/17 07:49 09/13/17 06:09 09/13/17 07:49 General appearance: Present: cooperative, no acute distress, thin - Head Head Exam: Present: normal inspection - Eye Eye exam: Present: PERRL Pupils: Present: PERRL - ENT ENT exam: Present: mucous membranes moist - Expanded ENT Exam Mouth Exam: Present: moist - Neck Neck exam: Present: normal inspection - Respiratory Respiratory exam: Present: decreased breath sounds - Expanded Respiratory Exam Location: decreased breath sounds: Left, Right, Lower - Cardiovascular Cardiovascular exam: Present: RRR, +S1, +S2 - Expanded Cardiovascular Exam Peripheral pulses: 1+: Femoral (L) PM, Femoral (R) PM, Posterior Tibialis (L), Posterior Tibialis (R), 2+: Carotid (L) PM, Carotid (R) PM, Radial (L), Radial ( R), Dorsalis Pedis (L) PM, Dorsalis Pedis (R) PM - GI/Abdominal Exam GI/Abdominal exam: Present: normal bowel sounds, soft - Expanded Upper Extremities Exam Shoulder exam: Present: full ROM Upper Arm exam: Present: full ROM Elbow exam: Present: full ROM Forearm wrist exam: Present: full ROM - Neurological Exam Neurological exam: Present: alert, oriented X3 - Expanded Neurological Exam Patient oriented to: Present: person, place, time Coma Scale Eye Opening: Spontaneous Coma Scale Motor Response: Obeys Commands Coma Scale Verbal Response: Oriented Coma Scale Total: 15 - Psychiatric Psychiatric exam: Present: normal affect Internal Medicine - CN: Reslt - Labs CBC & Chem 7: 09/13/17 03:06 09/13/17 03:06 Labs: Short CBC 09/13/17 Range/Units 03:06 WBC 28.5 H (4.3-11.1) K/mcL Hgb 8.4 L (11.5-15.4) g/dL Hct 29.2 L (35.3-44.9) % Plt Count 401 H (140-400) K/mcL Neutrophils # 26.2 H (1.6-8.9) K/mcL BMP 09/13/17 03:06 Sodium 142 Potassium 3.6 Chloride 107 Carbon Dioxide 30 H BUN 19 Creatinine 0.64 Glucose 99 Calcium 8.3 L Consult Discharge Plan - Plan Referrals: Otilia Coffey DO [Primary Care Provider] - Palliative Quality Palliative Quality: Screen for Code Status: Yes, Screen for Goals of Care: Yes, Screen for Pain: Yes, If Pain Regimen Started, Initiate Bowel Regimen: Yes, Screen for Nausea/Vomitting: Yes
--- NOTE | 2017-09-13 11:15 | Internal Med Progress Note ---
Date of Encounter: 09/13/17 Time of Encounter: 10:40 - Assessment and plan (1) Acute respiratory failure with hypoxia Current Visit: No Status: Acute Assessment and plan: Clinically improving, currently saturating well on 2L NC. 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 (3) COPD exacerbation Current Visit: No Status: Acute Assessment and plan: mild COPD exacerbation continue tapering her systemic steroids cont Duoneb continue INH steroids need to f/u with Pulm as an out pt pt will need home oxygen qualification prior to discharge as she is not on home oxygen support (4) Diabetes mellitus Current Visit: Yes Status: Chronic Assessment and plan: continue sliding scale insulin algorithm monitor FS and BG last HbA1C: 5.5 pt not on any antihyperglycemic agents at home will closely monitor FS while on steroid therapy Qualifiers: Diabetes mellitus type: type 2 Diabetes mellitus complication status: without complication 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 insulin use: without fdc use Qualified Code(s): E11.9 - Type 2 diabetes mellitus without complications (5) DVT prophylaxis Current Visit: Yes Status: Acute Assessment and plan: Lovenox SQ (6) Dysphagia Current Visit: Yes Status: Acute Assessment and plan: high risk for aspiration Speech therapy consultation appreciated tolerating thin liquids and regular texture diet Qualifiers: Dysphagia type: unspecified Qualified Code(s): R13.10 - Dysphagia, unspecified (7) Hypertension Current Visit: No Status: Chronic Assessment and plan: BP within acceptable range continue home meds Qualifiers: Hypertension type: renovascular hypertension Qualified Code(s): I15.0 - Renovascular hypertension (8) Leukocytosis Current Visit: No Status: Acute Assessment and plan: can be reactive or secondary to persistent PNA ID evaluation requested Qualifiers: Leukocytosis type: unspecified Qualified Code(s): D72.829 - Elevated white blood cell count, unspecified (9) Mass of upper lobe of right lung Current Visit: Yes Status: Acute Assessment and plan: inc in size Heme Onc on board no acute intervention recommended (10) Pneumonia Current Visit: No Status: Acute Assessment and plan: mostly bacterial.. also concerned for post obstructive and possible aspiration she is high risk for aspiration.. Image findings also consistent with aspiration Pulmonary on board cont empirical axb Levaquin for atypical coverage, zosyn discontinued vancomycin Qualifiers: Pneumonia type: due to unspecified organism Laterality: right Lung location: upper lobe of lung Qualified Code(s): J18.1 - Lobar pneumonia, unspecified organism (11) Postobstructive pneumonia Current Visit: Yes Status: Acute (12) Protein-calorie malnutrition, severe Current Visit: No Status: Acute (13) Squamous cell carcinoma of right lung Current Visit: Yes Status: Chronic (14) Goals of care, counseling/discussion Current Visit: Yes Status: Acute Assessment and plan: Palliative care evaluation appreciated pt to discuss with family about her code status - Subjective Interval history: Pt seen and examined at bedside. Resting in bed and reports of feeling better compared to previous day Saturating well on 2L NC, reports of not being on home oxygen. Pt was evaluated by oncologist yesterday and in agreement with bronchoscopy ID consultation requested given persistent leukocytosis and recurrent bronchitis and PNA. - Constitutional Vitals: Temp Pulse Resp BP Pulse Ox 98.3 F 98 16 164/98 94 09/13/17 06:09 09/13/17 06:09 09/13/17 07:49 09/13/17 06:09 09/13/17 07:49 General appearance: Present: cachectic, A&O X 3 (frail appearing elderly female ), no acute distress, loss of weight, answers questions appropriately - Head Head exam: Present: atraumatic, normocephalic - Eye Eye exam: Present: conjuntiva pink, sclera anicteric - Respiratory Respiratory exam: Absent: respiratory distress, wheezes (equal air entry bilaterally ) - Cardiovascular Cardiovascular exam: Present: RRR, +S1, +S2. Absent: diastolic murmur, gallop, rubs, systolic murmur - GI/Abdominal GI/Abdominal exam: Present: normal bowel sounds, soft, no peritoneal signs. Absent: distended, tenderness - Extremities Exam Extremities exam: Present: warm, radial pulses palpable and symmetrical. Absent : calf tenderness, cyanotic, pedal edema - Neurological Exam Neurological exam: Present: alert, oriented X3 - Psychiatric Psychiatric exam: Present: normal affect, normal mood Internal Medicine: Result - Labs CBC & Chem 7: 09/13/17 03:06 09/13/17 03:06 Labs: Short CBC 09/13/17 Range/Units 03:06 WBC 28.5 H (4.3-11.1) K/mcL Hgb 8.4 L (11.5-15.4) g/dL Hct 29.2 L (35.3-44.9) % Plt Count 401 H (140-400) K/mcL Neutrophils # 26.2 H (1.6-8.9) K/mcL BMP 09/13/17 03:06 Sodium 142 Potassium 3.6 Chloride 107 Carbon Dioxide 30 H BUN 19 Creatinine 0.64 Glucose 99 Calcium 8.3 L Consult Discharge Plan - Plan Referrals: Otilia Coffey DO [Primary Care Provider] -
--- NOTE | 2017-09-13 14:36 | Infectious Disease Consult ---
Date of Encounter: 09/13/17 Time of Encounter: 14:35 Assessment and Plan (1) Mass of upper lobe of right lung Status: Acute Assessment and plan: Secondary to squamous cell carcinoma. With metastases to the bone and to other areas Prognosis dismal (2) Postobstructive pneumonia Status: Acute Assessment and plan: Questionable at best. Patient denies any cough or sputum production or hemoptysis Dictated have sepsis criteria when she came in the I don't think we need Zosyn and Levaquin We'll just do Zosyn for now and DC Levaquin Duration of treatment 10 days (3) Sepsis Status: Acute Qualifiers: Sepsis type: sepsis due to unspecified organism Qualified Code(s): A41.9 - Sepsis, unspecified organism (4) Squamous cell carcinoma of right lung Status: Chronic (5) Cachexia Status: Acute Infectious Disease HPI - Data of Consult Patient: new to practice Consult date: 09/13/17 Requesting Physician: Janett Son MD Primary Care Provider: Otilia Coffey DO - Consult Narrative Reason for consult: persistant pneumonia History of present illness: Ms. Rogers is a 87 year old female Patient is an 87 year old woman admitted to [facility] on 09/06/17 with fevers chills not feeling well and post obstructive pneumonia we are consulted on 2017 for persistent pneumonia. 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 Patient presented to the emergency department complaining of fevers and chills 2 weeks apparently patient was noted to have pneumonia and a recent admission on where she had a chest x-ray that revealed increased opacification in the right upper lobe suggesting an acute infiltrate. Patient had no causative organism identified and was discharged home on levofloxacin and prednisone. Since admission, patient has been febrile with a MAXIMUM TEMPERATURE of 11.2 Fahrenheit, patient was also tachycardic with a heart rate of 108. Her presenting obesity was 24.8 thousand with neutrophilic predominance 88% no bands. Patient had a urine culture obtained which revealed no acute process. On 09/08/17 patient underwent risk for infectious panel which detected no viruses. Blood cultures were obtained on 09/06/17 which revealed no growth. Urine strep antigen was also done and it came back negative. A CT of the chest was obtained which was read as masslike consolidation within the right upper lobe which is increased in size since the prior study were some for neoplasm. This effectively sent lesions of adjacent ribs are worrisome for neoplastic involvement patient was started on Levaquin and Zosyn and prednisone and we were consulted to make further recommendations. Patient has been afebrile since 09/08/17. No causative organism hasnt been identified. Patient probably going for bronchoscopy tomorrow. After long discussion with Dr. harper regarding the patient, he thinks she is very high risk for bronchoscopy. Overall prognosis is dismal because of the malignancy and metastases. Patient also not enthusiastic about having the procedure done. CC: Janett Son MD Patient is an 87 year old woman admitted to [facility] on 09/06/17 with fevers chills not feeling well and post obstructive pneumonia we are consulted on 2017 for persistent pneumonia. 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 Patient presented to the emergency department complaining of fevers and chills 2 weeks apparently patient was noted to have pneumonia and a recent admission on where she had a chest x-ray that revealed increased opacification in the right upper lobe suggesting an acute infiltrate. Patient had no causative organism identified and was discharged home on levofloxacin and prednisone. Since admission, patient has been febrile with a MAXIMUM TEMPERATURE of 11.2 Fahrenheit, patient was also tachycardic with a heart rate of 108. Her presenting obesity was 24.8 thousand with neutrophilic predominance 88% no bands. Patient had a urine culture obtained which revealed no acute process. On 09/08/17 patient underwent risk for infectious panel which detected no viruses. Blood cultures were obtained on 09/06/17 which revealed no growth. Urine strep antigen was also done and it came back negative. A CT of the chest was obtained which was read as masslike consolidation within the right upper lobe which is increased in size since the prior study were some for neoplasm. This effectively sent lesions of adjacent ribs are worrisome for neoplastic involvement patient was started on Levaquin and Zosyn and prednisone and we were consulted to make further recommendations. Patient has been afebrile since 09/08/17. No causative organism hasnt been identified. Patient probably going for bronchoscopy tomorrow. Past Med Surg Social Fam HX - Past Medical History Medical history: cancer, diabetes, GERD, hypertension, peripheral artery disease , renal disease, other Psychiatric history: anxiety - Past Surgical History Surgical History: carotid endarterectomy, hip replacement - Social History Smoking Status: Former smoker Smokeless Tobacco Status: No Alcohol use: none Drug use: none - Family History Mother Hx Family Neurologic Disorders: Yes (stroke) Infectious Disease-CN:Meds Ascorbic Acid [Vitamin C] 1,000 mg PO DAILY 08/27/15 [History] Calcium Carbonate/Vitamin D3 [Calcium 600 + Vit D Softgel] 1 each PO DAILY 08/27 [History] LORazepam [Ativan] 1 mg PO Q6-8H PRN 08/27/15 [History] Multivit-Min/FA/Lycopen/Lutein [Centrum Silver Tablet] 1 each PO DAILY 08/27/15 [History] Mirtazapine 7.5 mg PO HS 03/26/17 [History] Clopidogrel [Plavix] 75 mg PO DAILY 05/01/17 [History] Benzonatate [Tessalon] 100 mg PO TID PRN #90 capsule 07/09/17 [Rx] Albuterol Sulfate [Albuterol Inhaler] 2 puff IH Q4HR PRN #0 07/30/17 [Rx] amLODIPine [Norvasc] 5 mg PO DAILY #30 tablet 07/30/17 [Rx] Ipratropium/Albuterol Neb [Duoneb] 3 ml IH Q2H PRN 09/06/17 [History] Ipratropium/Albuterol Neb [Duoneb] 3 ml IH QID 09/06/17 [History] Lisinopril [Zestril] 10 mg PO QPM 09/06/17 [History] Lisinopril [Zestril] 20 mg PO QAM 09/06/17 [History] Omeprazole [PriLOSEC] 40 mg PO DAILY 09/06/17 [History] 3 Allergy/AdvReac Type Severity Reaction Status Date / Time metronidazole [From Flagyl] Allergy Agitated Verified 08/28/17 16:47 Oxycodone [From Percocet] Allergy Agitated Verified 08/28/17 16:47 codeine AdvReac See Verified 08/28/17 16:47 Comments Review of systems: 10 point review of systems done negative other for what is mentioned in history of present illness. Exam - Constitutional Vitals: Temp Pulse Resp BP Pulse Ox 98.3 F 100 16 124/87 93 09/13/17 11:10 09/13/17 11:10 09/13/17 11:10 09/13/17 11:10 09/13/17 11:10 General appearance: no acute distress, no febrile - Head Head exam: Present: atraumatic, normocephalic - Eye Eye exam: Present: EOMI, PERRL, sclera anicteric - Neck Neck exam: Present: full ROM. Absent: meningismus - Respiratory Additional comments: Air sounds audible both lung lopez. Chest expanding symmetrically. Some diffuse rhonchi on the right diminished breath sounds on the right apex - Cardiovascular Cardiovascular exam: Present: RRR, +S1, +S2 - GI/Abdominal GI/Abdominal exam: Present: normal bowel sounds, soft. Absent: tenderness - Extremities Exam Extremities exam: Present: full ROM, normal inspection - Neurological Exam Neurological exam: Present: alert, oriented X3. Absent: facial droop - Psychiatric Psychiatric exam: Present: depressed, flat affect - Skin Skin exam: Present: normal color. Absent: rash Infectious Disease CN: Results - Labs CBC & Chem 7: 09/14/17 04:00 09/14/17 04:00 Serology: Serology 09/12/17 09/08/17 Range/Units 22:25 12:45 Stl C. diff Tox B Gene Negative (Negative) Chlamy pneumoniae PCR Not Detected (Not Detect) Adenovirus (PCR) Not Detected (Not Detect) B. pertussis DNA (PCR) Not Detected (Not Detect) Coronavirus OC43 (PCR) Not Detected (Not Detect) Coronavirus HKU1 (PCR) Not Detected (Not Detect) Coronavirus 229E (PCR) Not Detected (Not Detect) Coronavirus NL63 (PCR) Not Detected (Not Detect) Human Metapneumovir PCR Not Detected (Not Detect) Influenza A (H1) PCR Not Detected (Not Detect) Influ A (H1N1/09) PCR Not Detected (Not Detect) Influenza A (H3) PCR Not Detected (Not Detect) Influenza A Untype (PCR) Not Detected (Not Detect) Influenza Type B (PCR) Not Detected (Not Detect) M.pneumoniae DNA (PCR) Not Detected (Not Detect) Parainfluenza 1 (PCR) Not Detected (Not Detect) Parainfluenza 2 (PCR) Not Detected (Not Detect) Parainfluenza 3 (PCR) Not Detected (Not Detect) Parainfluenza 4 (PCR) Not Detected (Not Detect) RSV (PCR) Not Detected (Not Detect) Entero/Rhino (PCR) Not Detected (Not Detect) Consult Discharge Plan - Plan Referrals: Otilia Coffey DO [Primary Care Provider] -
--- NOTE | 2017-09-13 17:31 | Pulmonology Progress Note ---
Date of Encounter: 09/13/17 Time of Encounter: 11:30 Assessment and Plan (1) Pneumonia Current Visit: No Status: Acute Patient stated clinically she is feeling better on broad-spectrum antibiotic and to obtain sputum culture if possible. I have seen patient in the presence of the nurse and offered her bronchoscopy since patient is at risk of having atypical infections and it could be all from underlying mass. Patient stated she is feeling better and to continue antibiotics with starting de-escalation and also taper steroids and FiO2 to keep SPO2 around 90%. 09/13 I have talked to the patient regarding the lung lesion and explained to her again in detail about she may need bronchoscopy with all the risks, alternatives and benefits and she keeps saying that she is scared to have any invasive procedure. Discussed with infectious disease specialist and agree with plan of care for treatment with antibiotics and reevaluate in about 1 week if continued to have problem and she agreed to have bronchoscopy then we will arrange it for her. Qualifiers: Pneumonia type: due to unspecified organism Laterality: right Lung location: upper lobe of lung Qualified Code(s): J18.1 - Lobar pneumonia, unspecified organism (2) Leukocytosis Current Visit: No Status: Acute This could be altered multi-factorial and patient is on systemic steroid taper steroid and monitor WBC. 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 Subjective Principal diagnosis: Pneumonia Interval history: Patient stated that no significant changes in her condition and she denies any significant complaints. Objective PUL Vital signs: Last Vital Signs Temp 98.1 F 09/13/17 15:02 Pulse 100 09/13/17 15:02 Resp 16 09/13/17 15:02 BP 123/65 09/13/17 15:02 Pulse Ox 93 09/13/17 15:02 General appearance: no acute distress Eyes: nonicteric Neck: supple Effort: normal Auscultation: bilateral: diminished breath sounds Percussion: bilateral: not dull Cardiovascular: regular rate and rhythm Gastrointestinal: normoactive bowel sounds Extremities: no cyanosis non-focal exam anxious Results - Laboratory Findings CBC and BMP: 09/13/17 03:06 09/13/17 03:06 Abnormal lab findings: Abnormal lab results WBC 28.5 K/mcL (4.3-11.1) H 09/13/17 03:06 RBC 3.28 M/mcL (3.82-4.97) L 09/13/17 03:06 Hgb 8.4 g/dL (11.5-15.4) L 09/13/17 03:06 Hct 29.2 % (35.3-44.9) L 09/13/17 03:06 MCH 25.6 pg (28.0-33.3) L 09/13/17 03:06 MCHC 28.8 g/dL (31.6-35.5) L 09/13/17 03:06 RDW 17.6 % (11.5-14.5) H 09/13/17 03:06 Plt Count 401 K/mcL (140-400) H 09/13/17 03:06 Band Neutrophils % 10.0 % (0-4) H 09/11/17 04:31 Neutrophils # 26.2 K/mcL (1.6-8.9) H 09/13/17 03:06 Platelet Estimate Increased (Normal) H 09/13/17 03:06 Hypochromasia Present (Not Present) A 09/13/17 03:06 Anisocytosis 1+ (Not Present) A 09/12/17 04:13 Microcytosis Present (Not Present) A 09/12/17 04:13 Macrocytosis Present (Not Present) A 09/12/17 04:13 Carbon Dioxide 30 mEq/L (23-29) H 09/13/17 03:06 BUN/Creatinine Ratio 30 (6-26) H 09/13/17 03:06 POC Glucose 156 (58-89) H 09/07/17 18:37 Calcium 8.3 mg/dL (8.6-10.3) L 09/13/17 03:06 Phosphorus 2.3 mg/dL (2.7-4.5) L 09/13/17 03:06 Urine Clarity Cloudy (Clear) A 09/06/17 16:08 Ur Specific [place] 1.026 (1.010-1.025) H 09/06/17 16:08 Urine Protein 30 mg/dL (Neg-Trace) H 09/06/17 16:08 Ur Leukocyte Esterase Small (Negative) H 09/06/17 16:08 Urine Microscopic RBC 5-15 per hpf (0-3) H 09/06/17 16:08 Urine Microscopic WBC 30-50 per hpf (0-3) H 09/06/17 16:08 Ur Squamous Epith Cells Many per lpf (None-Few) H 09/06/17 16:08 Hyaline Casts Moderate per lpf (None-Few) H 09/06/17 16:08 Vancomycin Trough 6.1 mcg/mL (10-20) L 09/11/17 10:21 - Clinical Findings Intake & Output: Intake & Output 09/13/17 09/13/17 09/13/17 07:59 15:59 23:59 Intake Total 200 / 200 460 / 460 Output Total 0 / 0 700 / 700 Balance 200 / 200 -240 / -240 Weight 36 kg Consult Discharge Plan - Plan Referrals: Otilia Coffey DO [Primary Care Provider] -
[2017-09-13] MEDS: Mirtazapine 15 MG TABLET PO SCH (20:18)
[2017-09-14] MEDS: Piperacillin/Tazobactam 3.375 GM/200 ML BAG IVPB SCH ×3 (02:18→17:07)
[2017-09-14] MEDS: Ondansetron 4 MG/2 ML VIAL IVP PRN (02:21)
[2017-09-14 04:53] LABS: Basophils % 0.2 %; Eosinophils % 0.1 %; Red Cell Distribution Width 17.9 % (11.5-14.5)
[2017-09-14 04:55] LABS: Basophils # 0.1 K/mcL (0.0-0.2); Hematocrit 30.5 % (35.3-44.9); Hemoglobin 8.9 g/dL (11.5-15.4); Immature Granulocytes % 1.9 % (0-4); Lymphocytes # 0.8 K/mcL (0.6-4.6); Lymphocytes % 2.6 %; Mean Corpuscular HGB Conc 29.2 g/dL (31.6-35.5); Mean Corpuscular Hemoglobin 25.9 pg (28.0-33.3); Mean Corpuscular Volume 88.7 fL (83.0-100.0); Mean Platelet Volume 11.4 fL (9.4-12.4); Monocytes # 1.9 K/mcL (0.0-1.3); Monocytes % 6.3 %; Neutrophils # 27.4 K/mcL (1.6-8.9); Platelet Count 382 K/mcL (140-400); Red Blood Count 3.44 M/mcL (3.82-4.97); Segmented Neutrophils % 88.9 %
[2017-09-14 05:11] LABS: BUN/Creatinine Ratio 26 (6-26); Blood Urea Nitrogen 15 mg/dL (8-23); Calcium 8.1 mg/dL (8.6-10.3); Carbon Dioxide 29 mEq/L (23-29); Chloride 102 mEq/L (98-107); Glucose 95 mg/dL (70-105); Magnesium 1.8 mg/dL (1.6-2.6); Osmolality,Calculated 291 (280-300); Phosphorous 2.4 mg/dL (2.7-4.5); Potassium 4.1 mEq/L (3.5-5.1); Sodium 140 mEq/L (136-145); eGFR For African Americans > 60 (> 60); eGFR For Non-African Americans > 60 (> 60)
[2017-09-14 05:42] LABS: Anisocytosis 1+ (Not Present); Hypochromasia Present (Not Present); Platelet Estimate Normal (Normal)
[2017-09-14] MEDS: *HR* Enoxaparin 30 MG/0.3 ML SYRINGE SQ SCH (06:33)
[2017-09-14] MEDS: Budesonide Neb 0.5 MG/2 ML IH SCH ×2 (09:50→19:57)
--- NOTE | 2017-09-14 10:26 | Infectious Disease Progress No ---
Date of Encounter: 09/14/17 Time of Encounter: 10:22 - Assessment and Plan (1) Sepsis Current Visit: Yes Status: Acute The patient had two SIRS criteria on admission. Likely secondary to pneumonia. Improved. The patient has been afebrile. Her WBC is worse, but this is likely secondary to the patient's recent use of steroids. Lactic acid normal on admission. Blood cultures drawn 09/06/17 were negative 2/2 sets. Qualifiers: Sepsis type: sepsis due to unspecified organism Qualified Code(s): A41.9 - Sepsis, unspecified organism (2) Postobstructive pneumonia Current Visit: Yes Status: Acute Causative organism unclear. Location: Right upper lung. Likely secondary to lung mass. CT scan of the chest showed masslike consolidation within the right upper lobe which is increased in size since the prior study worrisome for neoplasm. Clinically, the patient reports improvement. We have been unable to get a sputum culture and the patient is refusing bronchoscopy. Swallow evaluation showed no aspiration. Pulmonology consulted and following. Continue Zosyn 3.375 grams IV Q8H. Duration of treatment depends on the clinical picture, but likely a total of 10- 14 days. Recommend switching to PO Augmentin when ready for discharge. Monitor renal function and dose-adjust antibiotics. 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 Patient declined chemotherapy. Follows with [facility]. (5) Stage III chronic kidney disease Current Visit: No Status: Chronic Serum creatinine stable at baseline. Continue to trend. Dose-adjust antibiotics as needed. Avoid nephrotoxins as able. (6) Diabetes mellitus Current Visit: Yes Status: Chronic Qualifiers: Diabetes mellitus type: type 2 Diabetes mellitus complication status: without complication Diabetes mellitus [facility] insulin use: without computer terminal operator use Qualified Code(s): E11.9 - Type 2 diabetes mellitus without complications (7) Hypertension Current Visit: No Status: Chronic Qualifiers: Hypertension type: renovascular hypertension Qualified Code(s): I15.0 - Renovascular hypertension - Subjective Interval history: Patient seen and examined. No acute events noted overnight. Patient resting quietly in bed. Denies fevers, chills, or rigors. Reports some shortness of breath, but denies cough or chest pain. Denies nausea, vomiting, diarrhea, or constipation. Denies abdominal pain, urinary complaints of appetite changes. Denies oral thrush or new skin lesions. She states she is not having a bronchoscopy. Infect Dis PN-Objective Data - Labs CBC & Chem 7: 09/14/17 04:00 09/14/17 04:00 Labs: Laboratory Results - last 24 hr 09/14/17 09/14/17 04:00 04:00 WBC 30.8 H* RBC 3.44 L Hgb 8.9 L Hct 30.5 L MCV 88.7 MCH 25.9 L MCHC 29.2 L RDW 17.9 H Plt Count 382 MPV 11.4 Immature Gran % 1.9 Seg Neutrophils % 88.9 Lymphocytes % 2.6 Monocytes % 6.3 Eosinophils % 0.1 Basophils % 0.2 Neutrophils # 27.4 H Lymphocytes # 0.8 Monocytes # 1.9 H Eosinophils # 0.0 Basophils # 0.1 Platelet Estimate Normal Hypochromasia Present A Anisocytosis 1+ A Sodium 140 Potassium 4.1 Chloride 102 Carbon Dioxide 29 BUN 15 Creatinine 0.57 L Est GFR ( Amer) > 60 Est GFR (Non-Af Amer) > 60 BUN/Creatinine Ratio 26 Glucose 95 Calculated Osmolality 291 Calcium 8.1 L Phosphorus 2.4 L Magnesium 1.8 Cultures: Serology 09/12/17 09/08/17 Range/Units 22:25 12:45 Stl C. diff Tox B Gene Negative (Negative) Chlamy pneumoniae PCR Not Detected (Not Detect) Adenovirus (PCR) Not Detected (Not Detect) B. pertussis DNA (PCR) Not Detected (Not Detect) Coronavirus OC43 (PCR) Not Detected (Not Detect) Coronavirus HKU1 (PCR) Not Detected (Not Detect) Coronavirus 229E (PCR) Not Detected (Not Detect) Coronavirus NL63 (PCR) Not Detected (Not Detect) Human Metapneumovir PCR Not Detected (Not Detect) Influenza A (H1) PCR Not Detected (Not Detect) Influ A (H1N1/09) PCR Not Detected (Not Detect) Influenza A (H3) PCR Not Detected (Not Detect) Influenza A Untype (PCR) Not Detected (Not Detect) Influenza Type B (PCR) Not Detected (Not Detect) M.pneumoniae DNA (PCR) Not Detected (Not Detect) Parainfluenza 1 (PCR) Not Detected (Not Detect) Parainfluenza 2 (PCR) Not Detected (Not Detect) Parainfluenza 3 (PCR) Not Detected (Not Detect) Parainfluenza 4 (PCR) Not Detected (Not Detect) RSV (PCR) Not Detected (Not Detect) Entero/Rhino (PCR) Not Detected (Not Detect) Exam - Constitutional Vitals: Temp Pulse Resp BP Pulse Ox 98 F 96 16 143/55 96 09/14/17 06:35 09/14/17 06:35 09/14/17 06:35 09/14/17 06:35 09/14/17 06:35 General appearance: cooperative, no acute distress, thin - Head Head exam: Present: atraumatic, normal inspection, normocephalic - Eye Eye exam: Present: EOMI, normal appearance, PERRL Pupils: Present: normal accommodation - ENT ENT exam: Present: mucous membranes dry - Neck Neck exam: Present: normal inspection - Respiratory Respiratory exam: Present: decreased breath sounds (throughout), rhonchi ( Scattered) - Cardiovascular Cardiovascular exam: Present: irregular rhythm, +S1, +S2. Absent: tachycardia - GI/Abdominal GI/Abdominal exam: Present: normal bowel sounds, soft. Absent: distended, tenderness - Extremities Exam Extremities exam: Present: normal inspection. Absent: joint swelling, pedal edema, tenderness - Neurological Exam Neurological exam: Present: alert, oriented X3, no focal deficits - Psychiatric Psychiatric exam: Present: normal affect, normal mood - Skin Skin exam: Present: dry, intact, normal color, warm Consult Discharge Plan - Plan Referrals: Otilia Coffey DO [Primary Care Provider] - - Attending Attestation I examined this patient and my medical decision-making was reviewed with the Resident Physician. I agree with the documented findings, disposition and treatment plan as described except to the extent set forth below.
[2017-09-14] MEDS: predniSONE 20 MG TABLET PO SCH (13:36)
[2017-09-14] MEDS: amLODIPine 5 MG TABLET PO SCH (13:36)
[2017-09-14] MEDS: Lisinopril 20 MG TABLET PO SCH (13:36)
--- NOTE | 2017-09-14 14:39 | Internal Med Progress Note ---
Date of Encounter: 09/14/17 Time of Encounter: 14:05 - Assessment and plan (1) Acute respiratory failure with hypoxia Current Visit: No Status: Acute Assessment and plan: Clinically improving, currently saturating well on 2L [place]. Cont Zosyn (day 8) ID evaluation appreciated, will speak with Dr. Mayorga about patient's persistent leukocytosis pt clinically improving pulm on board and consultation appreciated. Pt afraid about the invasive procedure therefore bronchoscopy on hold at this time and will re-evaluate if clinically deteriorates. suspecting possible aspiration pneumonia blood cx final report showed no growth resp viral panel - Negative Influenza A & B , Strep PNA are negative cont duoneb continue PO Prednisone (2) Cachexia Current Visit: No Status: Acute Assessment and plan: mostly due to lung cancer and poor dietary habits Software Lead consulted (3) COPD exacerbation Current Visit: No Status: Acute Assessment and plan: mild COPD exacerbation continue tapering her systemic steroids cont Duoneb continue INH steroids need to f/u with Pulm as an out pt pt will need home oxygen qualification prior to discharge as she is not on home oxygen support (4) Diabetes mellitus Current Visit: Yes Status: Chronic Assessment and plan: continue sliding scale insulin algorithm monitor FS and BG last HbA1C: 5.5 pt not on any antihyperglycemic agents at home will closely monitor FS while on steroid therapy Qualifiers: Diabetes mellitus type: type 2 Diabetes mellitus complication status: without complication Diabetes mellitus director long term care insulin use: without senior living use Qualified Code(s): E11.9 - Type 2 diabetes mellitus without complications (5) DVT prophylaxis Current Visit: Yes Status: Acute Assessment and plan: Lovenox SQ (6) Dysphagia Current Visit: Yes Status: Acute Assessment and plan: high risk for aspiration Speech therapy consultation appreciated tolerating thin liquids and regular texture diet Qualifiers: Dysphagia type: unspecified Qualified Code(s): R13.10 - Dysphagia, unspecified (7) Hypertension Current Visit: No Status: Chronic Assessment and plan: BP within acceptable range continue home meds Qualifiers: Hypertension type: renovascular hypertension Qualified Code(s): I15.0 - Renovascular hypertension (8) Leukocytosis Current Visit: No Status: Acute Assessment and plan: can be reactive or secondary to persistent PNA ID evaluation appreciated Qualifiers: Leukocytosis type: unspecified Qualified Code(s): D72.829 - Elevated white blood cell count, unspecified (9) Mass of upper lobe of right lung Current Visit: Yes Status: Acute Assessment and plan: inc in size Heme Onc on board no acute intervention recommended (10) Pneumonia Current Visit: No Status: Acute Assessment and plan: mostly bacterial.. also concerned for post obstructive and possible aspiration she is high risk for aspiration.. Image findings also consistent with aspiration Pulmonary on board cont empirical axb zosyn day 8 discontinued vancomycin Qualifiers: Pneumonia type: due to unspecified organism Laterality: right Lung location: upper lobe of lung Qualified Code(s): J18.1 - Lobar pneumonia, unspecified organism (11) Postobstructive pneumonia Current Visit: Yes Status: Acute (12) Protein-calorie malnutrition, severe Current Visit: No Status: Acute (13) Squamous cell carcinoma of right lung Current Visit: Yes Status: Chronic (14) Goals of care, counseling/discussion Current Visit: Yes Status: Acute Assessment and plan: Palliative care evaluation appreciated pt to discuss with family about her code status - Subjective Interval history: Pt seen and examined at bedside. Resting in chair and eating lunch. Saturating well on 2L NC, reports of not being on home oxygen. Pt clinically improving, if symptoms persists, bronchoscopy in a week as per pulmonology - Constitutional Vitals: Temp Pulse Resp BP Pulse Ox 98.4 F 79 16 127/68 99 09/14/17 10:41 09/14/17 10:41 09/14/17 10:41 09/14/17 10:41 09/14/17 10:41 General appearance: Present: cachectic, A&O X 3 (frail appearing elderly female ), no acute distress, underweight, answers questions appropriately - Head Head exam: Present: atraumatic, normocephalic - Eye Eye exam: Present: conjuntiva pink, sclera anicteric - Respiratory Respiratory exam: Absent: respiratory distress, wheezes (equal air entry bilaterally ) - Cardiovascular Cardiovascular exam: Present: RRR, +S1, +S2. Absent: diastolic murmur, gallop, rubs, systolic murmur - GI/Abdominal GI/Abdominal exam: Present: normal bowel sounds, soft, no peritoneal signs. Absent: distended, tenderness - Extremities Exam Extremities exam: Present: warm, radial pulses palpable and symmetrical. Absent : calf tenderness, cyanotic, pedal edema - Neurological Exam Neurological exam: Present: alert, oriented X3 Internal Medicine: Result - Labs CBC & Chem 7: 09/14/17 04:00 09/14/17 04:00 Labs: Short CBC 09/14/17 Range/Units 04:00 WBC 30.8 H* (4.3-11.1) K/mcL Hgb 8.9 L (11.5-15.4) g/dL Hct 30.5 L (35.3-44.9) % Plt Count 382 (140-400) K/mcL Neutrophils # 27.4 H (1.6-8.9) K/mcL BMP 09/14/17 04:00 Sodium 140 Potassium 4.1 Chloride 102 Carbon Dioxide 29 BUN 15 Creatinine 0.57 L Glucose 95 Calcium 8.1 L Consult Discharge Plan - Plan Referrals: Otilia Coffey DO [Primary Care Provider] -
--- NOTE | 2017-09-14 15:55 | Event Note ---
Date of Encounter: 09/14/17 Time of Encounter: 15:45 Follow up visit from yesterday's goals of care discussion. Patient remembers discussion yesterday, but states she has not discussed with family, and is not sure what she wants. We discussed the importance of this crucial conversation and she did acknowledge that it is important. However, code status remains full as she has not made any clear decision at this time. Will f/u Sunday if pt remains here, I suspect she may be discharged to rehab prior to that.
[2017-09-14] MEDS: *HR* LORazepam 1 MG TABLET PO PRN (22:47)
[2017-09-14] MEDS: Mirtazapine 15 MG TABLET PO SCH (22:48)
[2017-09-15] MEDS: Piperacillin/Tazobactam 3.375 GM/200 ML BAG IVPB SCH ×3 (03:39→17:59)
[2017-09-15 04:09] LABS: Basophils % 0.2 %; Lymphocytes % 2.9 %; Red Blood Count 3.31 M/mcL (3.82-4.97); Red Cell Distribution Width 18.1 % (11.5-14.5)
[2017-09-15 04:11] LABS: Basophils # 0.1 K/mcL (0.0-0.2); Hematocrit 29.8 % (35.3-44.9); Hemoglobin 8.6 g/dL (11.5-15.4); Immature Granulocytes % 1.4 % (0-4); Lymphocytes # 0.8 K/mcL (0.6-4.6); Mean Corpuscular HGB Conc 28.9 g/dL (31.6-35.5); Mean Platelet Volume 11.1 fL (9.4-12.4); Monocytes # 1.1 K/mcL (0.0-1.3); Monocytes % 4.3 %; Neutrophils # 24.2 K/mcL (1.6-8.9); Platelet Count 415 K/mcL (140-400); Segmented Neutrophils % 91.2 %
[2017-09-15 05:13] LABS: BUN/Creatinine Ratio 32 (6-26); Blood Urea Nitrogen 20 mg/dL (8-23); Calcium 8.2 mg/dL (8.6-10.3); Carbon Dioxide 32 mEq/L (23-29); Chloride 103 mEq/L (98-107); Glucose 78 mg/dL (70-105); Magnesium 1.9 mg/dL (1.6-2.6); Osmolality,Calculated 299 (280-300); Phosphorous 2.6 mg/dL (2.7-4.5); Potassium 3.3 mEq/L (3.5-5.1); Sodium 144 mEq/L (136-145); eGFR For African Americans > 60 (> 60); eGFR For Non-African Americans > 60 (> 60)
[2017-09-15 05:42] LABS: Anisocytosis 2+ (Not Present); Hypersegmented Neutrophils Present (Not Present); Hypochromasia Present (Not Present); Platelet Estimate Increased (Normal); Poikilocytosis 1+ (Not Present); Target Cells 1+ (Not Present)
[2017-09-15] MEDS: *HR* Enoxaparin 30 MG/0.3 ML SYRINGE SQ SCH (06:14)
[2017-09-15] MEDS: Budesonide Neb 0.5 MG/2 ML IH SCH ×2 (07:47→20:02)
[2017-09-15] MEDS: Lisinopril 20 MG TABLET PO SCH (08:29)
[2017-09-15] MEDS: *HR* LORazepam 1 MG TABLET PO PRN ×2 (08:29→23:01)
[2017-09-15] MEDS: predniSONE 20 MG TABLET PO SCH (08:29)
[2017-09-15] MEDS: amLODIPine 5 MG TABLET PO SCH (08:30)
[2017-09-15] MEDS ORDERED: Sennosides/Docusate Sodium TABLET PO SCH (10:45)
[2017-09-15] MEDS ORDERED: Loperamide 1 MG/5 ML UDC PO PRN (11:09)
--- NOTE | 2017-09-15 11:15 | Internal Med Progress Note ---
Date of Encounter: 09/15/17 Time of Encounter: 10:40 - Assessment and plan (1) Acute respiratory failure with hypoxia Current Visit: No Status: Acute Assessment and plan: Clinically improving, currently saturating well on 2L NC. Cont Zosyn (day 9) ID evaluation appreciated pt clinically improving pulm on board and consultation appreciated. Pt afraid about the invasive procedure therefore bronchoscopy on hold at this time and will re-evaluate if clinically deteriorates. suspecting possible aspiration pneumonia blood cx final report showed no growth resp viral panel - Negative Influenza A & B , Strep PNA are negative cont duoneb continue PO Prednisone (2) Cachexia Current Visit: No Status: Acute Assessment and plan: mostly due to lung cancer and poor dietary habits Specialty Plant Supervisor consulted (3) COPD exacerbation Current Visit: No Status: Acute Assessment and plan: mild COPD exacerbation continue tapering her systemic steroids cont Duoneb continue INH steroids need to f/u with Pulm as an out pt pt will need home oxygen qualification prior to discharge as she is not on home oxygen support (4) Diabetes mellitus Current Visit: Yes Status: Chronic Assessment and plan: continue sliding scale insulin algorithm monitor FS and BG last HbA1C: 5.5 pt not on any antihyperglycemic agents at home will closely monitor FS while on steroid therapy Qualifiers: Diabetes mellitus type: type 2 Diabetes mellitus complication status: without complication Diabetes mellitus longterm insulin use: without joint terminal attack controller use Qualified Code(s): E11.9 - Type 2 diabetes mellitus without complications (5) DVT prophylaxis Current Visit: Yes Status: Acute Assessment and plan: Lovenox SQ (6) Dysphagia Current Visit: Yes Status: Acute Assessment and plan: high risk for aspiration Speech therapy consultation appreciated tolerating thin liquids and regular texture diet Qualifiers: Dysphagia type: unspecified Qualified Code(s): R13.10 - Dysphagia, unspecified (7) Hypertension Current Visit: No Status: Chronic Assessment and plan: Noted to be hypertensive will start metoprolol 12.5mg PO BID closely monitor BP Qualifiers: Hypertension type: renovascular hypertension Qualified Code(s): I15.0 - Renovascular hypertension (8) Leukocytosis Current Visit: No Status: Acute Assessment and plan: Clinically improving Leukocytosis can be secondary to steroids vs. underling infectious etiology improved from previous day will closely monitor Qualifiers: Leukocytosis type: unspecified Qualified Code(s): D72.829 - Elevated white blood cell count, unspecified (9) Mass of upper lobe of right lung Current Visit: Yes Status: Acute Assessment and plan: inc in size Heme Onc on board no acute intervention recommended (10) Pneumonia Current Visit: No Status: Acute Assessment and plan: mostly bacterial.. also concerned for post obstructive and possible aspiration she is high risk for aspiration.. Image findings also consistent with aspiration Pulmonary on board cont empirical axb zosyn day 9 discontinued vancomycin Qualifiers: Pneumonia type: due to unspecified organism Laterality: right Lung location: upper lobe of lung Qualified Code(s): J18.1 - Lobar pneumonia, unspecified organism (11) Postobstructive pneumonia Current Visit: Yes Status: Acute (12) Protein-calorie malnutrition, severe Current Visit: No Status: Acute (13) Squamous cell carcinoma of right lung Current Visit: Yes Status: Chronic (14) Goals of care, counseling/discussion Current Visit: Yes Status: Acute Assessment and plan: Palliative care evaluation appreciated pt to discuss with family about her code status (15) Abdominal discomfort Current Visit: Yes Status: Acute Assessment and plan: Pt reported to have four BM this morning C-diff studies negative on 09/12/17 will continue supportive care monitor electrolytes closely (16) Electrolyte abnormality Current Visit: Yes Status: Acute Assessment and plan: Hypokalemia and Hypophosphatemia K and Phos supplemented continue to monitor electrolytes and replace as needed - Subjective Interval history: Pt seen and examined at bedside. Resting in bed and reports of abdominal discomfort and bloating. states she has had four bowel movements since morning. Noted to have negative C-diff test on 09/12/17. Will treat with supportive care. Currently saturating well on room air. Will closely monitor overnight given abd discomfort and persistent diarrhea, tentative d/c in am to ECF if clinically stable. Noted to be hypertensive and have sinus tachycardia this morning, will start low dose Metoprolol BID. - Constitutional Vitals: Temp Pulse Resp BP Pulse Ox 98.4 F 82 16 173/92 97 09/15/17 06:58 09/15/17 06:58 09/15/17 07:47 09/15/17 06:58 09/15/17 07:49 General appearance: Present: cachectic, A&O X 3 (frail appearing elderly female ), no acute distress, underweight, answers questions appropriately - Head Head exam: Present: atraumatic, normocephalic - Eye Eye exam: Present: conjuntiva pink, sclera anicteric - Respiratory Respiratory exam: Absent: respiratory distress, wheezes (equal air entry bilaterally ) - Cardiovascular Cardiovascular exam: Present: +S1, +S2, tachycardia. Absent: diastolic murmur, systolic murmur - GI/Abdominal GI/Abdominal exam: Present: normal bowel sounds, soft, no peritoneal signs. Absent: distended, tenderness - Extremities Exam Extremities exam: Present: warm, radial pulses palpable and symmetrical. Absent : calf tenderness, pedal edema - Neurological Exam Neurological exam: Present: alert, oriented X3 - Psychiatric Psychiatric exam: Present: normal affect, normal mood Internal Medicine: Result - Labs CBC & Chem 7: 09/15/17 02:40 09/15/17 02:40 Labs: Short CBC 09/15/17 Range/Units 02:40 WBC 26.5 H (4.3-11.1) K/mcL Hgb 8.6 L (11.5-15.4) g/dL Hct 29.8 L (35.3-44.9) % Plt Count 415 H (140-400) K/mcL Neutrophils # 24.2 H (1.6-8.9) K/mcL BMP 09/15/17 02:40 Sodium 144 Potassium 3.3 L Chloride 103 Carbon Dioxide 32 H BUN 20 Creatinine 0.62 Glucose 78 Calcium 8.2 L - VTE Documentation of Mechanical Device: Intermittent pneumatic compression device Consult Discharge Plan - Plan Referrals: Otilia Coffey DO [Primary Care Provider] -
[2017-09-15] MEDS: Simethicone 80 MG TAB.CHEW PO PRN (11:37)
[2017-09-15] MEDS: Mirtazapine 15 MG TABLET PO SCH (21:10)
[2017-09-16] MEDS: Piperacillin/Tazobactam 3.375 GM/200 ML BAG IVPB SCH ×2 (01:57→10:58)
[2017-09-16] MEDS: Ondansetron 4 MG/2 ML VIAL IVP PRN (04:37)
[2017-09-16 05:42] LABS: Basophils # 0.1 K/mcL (0.0-0.2); Basophils % 0.2 %; Eosinophils % 0.1 %; Hemoglobin 8.6 g/dL (11.5-15.4); Immature Granulocytes % 1.9 % (0-4); Lymphocytes # 0.9 K/mcL (0.6-4.6); Lymphocytes % 3.1 %; Mean Corpuscular HGB Conc 29.7 g/dL (31.6-35.5); Mean Corpuscular Hemoglobin 26.3 pg (28.0-33.3); Mean Corpuscular Volume 88.7 fL (83.0-100.0); Mean Platelet Volume 10.9 fL (9.4-12.4); Monocytes # 1.9 K/mcL (0.0-1.3); Monocytes % 6.6 %; Neutrophils # 24.9 K/mcL (1.6-8.9); Platelet Count 404 K/mcL (140-400); Red Blood Count 3.27 M/mcL (3.82-4.97); Red Cell Distribution Width 18.4 % (11.5-14.5); Segmented Neutrophils % 88.1 %
[2017-09-16 05:50] LABS: BUN/Creatinine Ratio 33 (6-26); Blood Urea Nitrogen 19 mg/dL (8-23); Calcium 8.2 mg/dL (8.6-10.3); Carbon Dioxide 32 mEq/L (23-29); Chloride 103 mEq/L (98-107); Glucose 99 mg/dL (70-105); Magnesium 1.8 mg/dL (1.6-2.6); Osmolality,Calculated 298 (280-300); Phosphorous 2.4 mg/dL (2.7-4.5); Potassium 3.2 mEq/L (3.5-5.1); Sodium 143 mEq/L (136-145); eGFR For African Americans > 60 (> 60); eGFR For Non-African Americans > 60 (> 60)
[2017-09-16] MEDS: *HR* Enoxaparin 30 MG/0.3 ML SYRINGE SQ SCH (06:19)
[2017-09-16 06:38] LABS: Anisocytosis 1+ (Not Present); Hypochromasia Present (Not Present)
[2017-09-16] MEDS: Budesonide Neb 0.5 MG/2 ML IH SCH (07:57)
[2017-09-16] MEDS: Simethicone 80 MG TAB.CHEW PO PRN (10:57)
[2017-09-16] MEDS: predniSONE 20 MG TABLET PO SCH (10:57)
[2017-09-16] MEDS: Lisinopril 20 MG TABLET PO SCH (10:57)
[2017-09-16] MEDS: amLODIPine 5 MG TABLET PO SCH (10:58)
--- NOTE | 2017-09-16 13:59 | Discharge Summary ---
Date of Encounter: 09/16/17 Time of Encounter: 12:45 - Discharge Diagnosis (1) Acute respiratory failure with hypoxia Priority: Primary Status: Acute (2) Cachexia Priority: Secondary Status: Acute (3) COPD exacerbation Priority: Primary Status: Acute (4) Diabetes mellitus Priority: Secondary Status: Chronic Qualifiers: Diabetes mellitus type: type 2 Diabetes mellitus complication status: without complication Diabetes mellitus meterman insulin use: without meterman use Qualified Code(s): E11.9 - Type 2 diabetes mellitus without complications (5) DVT prophylaxis Priority: Secondary Status: Acute (6) Dysphagia Priority: Secondary Status: Acute Qualifiers: Dysphagia type: unspecified Qualified Code(s): R13.10 - Dysphagia, unspecified (7) Hypertension Priority: Secondary Status: Chronic Qualifiers: Hypertension type: renovascular hypertension Qualified Code(s): I15.0 - Renovascular hypertension (8) Leukocytosis Priority: Secondary Status: Acute Qualifiers: Leukocytosis type: unspecified Qualified Code(s): D72.829 - Elevated white blood cell count, unspecified (9) Mass of upper lobe of right lung Priority: Secondary Status: Chronic (10) Pneumonia Priority: Primary Status: Acute Qualifiers: Pneumonia type: due to unspecified organism Laterality: right Lung location: upper lobe of lung Qualified Code(s): J18.1 - Lobar pneumonia, unspecified organism (11) Postobstructive pneumonia Priority: Primary Status: Acute (12) Protein-calorie malnutrition, severe Priority: Secondary Status: Acute (13) Squamous cell carcinoma of right lung Priority: Secondary Status: Chronic (14) Goals of care, counseling/discussion Priority: Secondary Status: Acute (15) Abdominal discomfort Priority: Secondary Status: Acute (16) Electrolyte abnormality Priority: Secondary Status: Acute - Discharge Medications Prescriptions: Amoxicillin/Clavulanate [Augmentin] 875 mg PO BIDWM #9 tablet LORazepam [Ativan] 1 mg PO TID PRN #10 tablet PRN Reason: Anxiety Home Medications: Ascorbic Acid [Vitamin C] 1,000 mg PO DAILY 08/27/15 [History] Calcium Carbonate/Vitamin D3 [Calcium 600 + Vit D Softgel] 1 each PO DAILY 08/27 [History] Multivit-Min/FA/Lycopen/Lutein [Centrum Silver Tablet] 1 each PO DAILY 08/27/15 [History] Mirtazapine 7.5 mg PO HS 03/26/17 [History] Clopidogrel [Plavix] 75 mg PO DAILY 05/01/17 [History] Benzonatate [Tessalon] 100 mg PO TID PRN #90 capsule 07/09/17 [Rx] Albuterol Sulfate [Albuterol Inhaler] 2 puff IH Q4HR PRN #0 07/30/17 [Rx] amLODIPine [Norvasc] 5 mg PO DAILY #30 tablet 07/30/17 [Rx] Ipratropium/Albuterol Neb [Duoneb] 3 ml IH Q2H PRN 09/06/17 [History] Ipratropium/Albuterol Neb [Duoneb] 3 ml IH QID 09/06/17 [History] Lisinopril [Zestril] 10 mg PO QPM 09/06/17 [History] Lisinopril [Zestril] 20 mg PO QAM 09/06/17 [History] Omeprazole [PriLOSEC] 40 mg PO DAILY 09/06/17 [History] Amoxicillin/Clavulanate [Augmentin] 875 mg PO BIDWM #9 tablet 09/16/17 [Rx] LORazepam [Ativan] 1 mg PO TID PRN #10 tablet 09/16/17 [Rx] Loperamide [Imodium] 1 mg PO QID PRN udc 09/16/17 [Rx] Metoprolol [Lopressor] 12.5 mg PO BID tablet 09/16/17 [Rx] Simethicone [Gas-X] 80 mg PO TID PRN tab.chew 09/16/17 [Rx] predniSONE [PredniSONE] 40 mg PO DAILY #3 tablet 09/16/17 [Rx] Allergies/Adverse Reactions: 3 Allergy/AdvReac Type Severity Reaction Status Date / Time metronidazole [From Flagyl] Allergy Agitated Verified 08/28/17 16:47 Oxycodone [From Percocet] Allergy Agitated Verified 08/28/17 16:47 codeine AdvReac See Verified 08/28/17 16:47 Comments Date of admission: 09/06/17 22:38 Primary care physician: Otilia Coffey DO Consults: 09/13/17 07:57 Consult to Palliative Care [CONS] Routine Comment: Consulting Provider: Palliative Care Diann Reason for Consult: establish goals of care and code status Call Completed: Yes 09/13/17 11:01 Consult to Infectious Diseases [CONS] Routine Consulting Provider: Infectious Disease Diann Reason for Consult: persistent pna Call Completed: Yes 09/13/17 11:17 Consult to Nutrition [CONS] Stat Comment: Consulting Provider: NUTRITION Reason for Dietary Consult: PO Supplementation 09/06/17 22:40 Consult to Oncology [CONS] Routine Consulting Provider: [facility] Reason for Consult: concern for post-obstructive cancer recurrence Call Completed: No 09/06/17 22:41 Consult to Pulmonology [CONS] Routine Consulting Provider: [facility] Reason for Consult: concern for cancer recurrence with post-obstructive PNA. Eval for bronch and tissue dx ? Call Completed: No 09/08/17 17:51 Consult to Occupational Therapy [CONS] Routine Comment: Evaluate, develop and implement POC Reason for Consult: eval and treat Consult to Physical Therapy [CONS] Routine Comment: Evaluate, develop and implement POC Reason for Consult: eval and treat 09/09/17 10:56 Consult to Speech Therapy [CONS] Routine Comment: Evaluate, develop and implement POC Reason for Consult: possible aspiration PN Call Completed: No Discharging clinician: Janett Son Anticipated date of discharge: 09/16/17 - Patient Status Disposition: Transfer SNF Condition: Fair Functional capacity at discharge: uses cane/walker Overall status at discharge: patient is progressing back to baseline - Ambulatory Orders Ambulatory Orders: Complete Blood Count [HEME] Time Frame: 1 Week, Facility: [facility], Location: Lab - Discharge Instructions Follow Up With: Otilia Coffey DO [Primary Care Provider] - Additional Instructions: Please follow up with your primary care physician and oncologist within five days after your discharge from the hospital. Please follow up with your freight checker and infectious disease specialist within one week after your discharge from the hospital. Please continue oral antibiotics and steroids as prescribed. Metoprolol 12.5mg twice a day has been added to your home medications. Please closely monitor your blood pressure at home. Hold your blood pressure medications for systolic blood pressure less than 100. Resume all other medications as prescribed by your primary care physician. Obtain the prescribed lab work prior to your follow up with your primary care physician. - Diet and Activity Activity: as per physical therapy, wear oxygen at all times, wear oxygen at night Diet: low salt diet Hospital course: Ms. 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 Her hospital course was complicated by slow improvement of her respiratory distress. She was followed by oncology, pulmonology, and ID. Bronchoscopy was recommended given recurrent PNA and CT chest findings, pt refused bronchoscopy. Pt began to clinically improved with broad spectrum IV abx and steroid support. She remained O2 dependent however became afebrile and started showing clinical improvement. She was evaluated by physical therapy and ECF was recommended. I spoke with ID in regards to her persistent leukocytosis, no other intervention other than completing fourteen days of antibiotics were recommended. Pt is currently stable for discharge to ECF.She will follow up with oncology, PCP, pulm, and ID as outpatient. - Time Spent with Patient Total time spent providing and/or coordinating discharge services: Greater than 30 minutes - Constitutional Vitals: Temp Pulse Resp BP Pulse Ox 98 F 73 16 126/76 95 09/16/17 11:22 09/16/17 11:22 09/16/17 11:22 09/16/17 11:22 09/16/17 11:22 General appearance: Present: cachectic, A&O X 3 (frail appearing elderly female ), no acute distress, underweight, answers questions appropriately - Head Head exam: Present: atraumatic, normocephalic - Eye Eye exam: Present: conjuntiva pink, sclera anicteric - Respiratory Respiratory exam: Absent: rales, respiratory distress, wheezes - Cardiovascular Cardiovascular exam: Present: RRR, +S1, +S2. Absent: diastolic murmur, gallop, rubs, systolic murmur - GI/Abdominal GI/Abdominal exam: Present: normal bowel sounds, soft, no peritoneal signs. Absent: distended, tenderness - Extremities Exam Extremities exam: Present: warm, radial pulses palpable and symmetrical. Absent : calf tenderness, cyanotic, pedal edema - Neurological Exam Neurological exam: Present: alert, oriented X3 - VTE Documentation of Mechanical Device: Intermittent pneumatic compression device
--- NOTE | 2017-09-16 14:08 | Physician Discharge Referral ---
ExtendedCare Referral Info Transfer To: [facility] - Diagnosis (1) Acute respiratory failure with hypoxia Priority: Primary Status: Acute (2) Cachexia Priority: Secondary Status: Acute (3) COPD exacerbation Priority: Primary Status: Acute (4) Diabetes mellitus Priority: Secondary Status: Chronic (5) DVT prophylaxis Priority: Secondary Status: Acute (6) Dysphagia Priority: Secondary Status: Acute (7) Hypertension Priority: Secondary Status: Chronic (8) Leukocytosis Priority: Secondary Status: Acute (9) Mass of upper lobe of right lung Priority: Secondary Status: Chronic (10) Pneumonia Priority: Primary Status: Acute (11) Postobstructive pneumonia Priority: Primary Status: Acute (12) Protein-calorie malnutrition, severe Priority: Secondary Status: Acute (13) Squamous cell carcinoma of right lung Priority: Secondary Status: Chronic (14) Goals of care, counseling/discussion Priority: Secondary Status: Acute (15) Abdominal discomfort Priority: Secondary Status: Acute (16) Electrolyte abnormality Priority: Secondary Status: Acute - Transfer Medications Prescriptions: Amoxicillin/Clavulanate [Augmentin] 875 mg PO BIDWM #9 tablet LORazepam [Ativan] 1 mg PO TID PRN #10 tablet PRN Reason: Anxiety Home Medications: Ascorbic Acid [Vitamin C] 1,000 mg PO DAILY 08/27/15 [History] Calcium Carbonate/Vitamin D3 [Calcium 600 + Vit D Softgel] 1 each PO DAILY 08/27 [History] Multivit-Min/FA/Lycopen/Lutein [Centrum Silver Tablet] 1 each PO DAILY 08/27/15 [History] Mirtazapine 7.5 mg PO HS 03/26/17 [History] Clopidogrel [Plavix] 75 mg PO DAILY 05/01/17 [History] Benzonatate [Tessalon] 100 mg PO TID PRN #90 capsule 07/09/17 [Rx] Albuterol Sulfate [Albuterol Inhaler] 2 puff IH Q4HR PRN #0 07/30/17 [Rx] amLODIPine [Norvasc] 5 mg PO DAILY #30 tablet 07/30/17 [Rx] Ipratropium/Albuterol Neb [Duoneb] 3 ml IH Q2H PRN 09/06/17 [History] Ipratropium/Albuterol Neb [Duoneb] 3 ml IH QID 09/06/17 [History] Lisinopril [Zestril] 10 mg PO QPM 09/06/17 [History] Lisinopril [Zestril] 20 mg PO QAM 09/06/17 [History] Omeprazole [PriLOSEC] 40 mg PO DAILY 09/06/17 [History] Amoxicillin/Clavulanate [Augmentin] 875 mg PO BIDWM #9 tablet 09/16/17 [Rx] LORazepam [Ativan] 1 mg PO TID PRN #10 tablet 09/16/17 [Rx] Loperamide [Imodium] 1 mg PO QID PRN udc 09/16/17 [Rx] Metoprolol [Lopressor] 12.5 mg PO BID tablet 09/16/17 [Rx] Simethicone [Gas-X] 80 mg PO TID PRN tab.chew 09/16/17 [Rx] predniSONE [PredniSONE] 40 mg PO DAILY #3 tablet 09/16/17 [Rx] Allergies/Adverse Reactions: 3 Allergy/AdvReac Type Severity Reaction Status Date / Time metronidazole [From Flagyl] Allergy Agitated Verified 08/28/17 16:47 Oxycodone [From Percocet] Allergy Agitated Verified 08/28/17 16:47 codeine AdvReac See Verified 08/28/17 16:47 Comments - Respiratory Orders Oxygen / L per min (2L/NC) Smoking Cessation: Smoking cessation has been advised. For more information, call the [place] Tobacco Quit Line at 8-517-XPOV-NOW. - Lab Orders Lab Orders: CBC (qweekly) - Rehabiliation Orders Other: Please follow up with your primary care physician and oncologist within five days after your discharge from the hospital. Please follow up with your news analyst and infectious disease specialist within one week after your discharge from the hospital. Please continue oral antibiotics and steroids as prescribed. Metoprolol 12.5mg twice a day has been added to your home medications. Please closely monitor your blood pressure at home. Hold your blood pressure medications for systolic blood pressure less than 100. Obtain the prescribed lab work prior to your follow up with your primary care physician. Resume all other medications as prescribed by your primary care physician. CERTIFICATION: I certify that the transfer of the above named patient to an Extended Care Facility is necessary for the continuing treatment of the diagnosis listed. The above information is true and accurate reflection of patient's current condition. Confidential - Redisclosure prohibited without a patient's written consent.
[2017-09-16 15:31] VITALS: BP 119/64
== END 2017-09-16 17:47 | DRG 871 ==
LOC: 2NENU 15:18 → EMEROO 15:18 → 2NENU 20:50 → SUATTDRO 22:38
PROVIDERS: ADMIT Internal Medicine Hematology & Oncology; ATTEND Internal Medicine

== ENCOUNTER 2017-10-11 07:17 | Inpatient (IN) ==
--- NOTE | 2017-10-11 07:39 | Emergency Department Note ---
START Narrative - START START: I have personally performed a face to face evaluation on this patient. I have reviewed and agree with the care plan. History and Exam by me shows: 87 yo f here for unresponsiveness. sent from [place]. pt has known lung CA; pt upon arrival would benefit from intubation due to resp distress. however, the papers said she was a full code but the power of hand roller engraver called and spoke with Dr. Cunningham and did not want the patient to be intubated or to have any CPR or resuscitation done in those events. We will place her on a BiPAP machine at this time to help with her respirations. We will proceed with a septic workup. Her son is at the bedside and he did confirm with the sisters wishes to is the POA. Patient is a very cachectic 87- year-old female with a history of known lung cancer and in the setting of respiratory distress, i am in agreement with the family's plan. Proceed with septic workup. update: pt doing ok on bipap. will check abg now. empiric antibiotics due to wbc count of nearly 30K. critical care time of 40 min spent in medical management of Altered level of consciousness, hypotension. dr cunningham spoke with poa and we have made pt a dnr cc.
--- NOTE | 2017-10-11 07:40 | Emergency Department Note ---
Disposition Clinical Impression: Respiratory distress, Healthcare-associated pneumonia, Non-ST elevated myocardial infarction (non-STEMI) Sepsis Qualifiers: Sepsis type: sepsis due to unspecified organism Qualified Code(s): A41.9 - Sepsis, unspecified organism Disposition: Admitted As Inpatient Condition: Fair Referrals: Otilia Coffey DO [Primary Care Provider] - Forms: ED Satisfaction Letter General Adult HPI - General Chief complaint: ED Altered Mental Status Stated complaint: AMS Time Seen by Provider: 10/11/17 07:34 Source: EMS Mode of arrival: EMS Limitations: altered mental status Nursing Notes Reviewed: Yes Vital Signs Reviewed: Yes - History of Present Illness HPI Narrative: 87-year-old female arrives by EMS from a local extended care facility after being found semi-responsive in her room. According to EMS report, when nursing staff at [facility] entered the patient's room, she was found to be laboriously breathing and "nearly unresponsive". EMS reported that the patient "would not respond to some verbal stimuli". She arrived obtunded and unresponsive to painful stimuli. She was noted to be in moderate respiratory distress. EMS states that the patient is currently being treated for pneumonia. The patient does have a history of lung cancer. According to paperwork brought by EMS from the [facility], the patient is currently a full code. Onset (ago): unknown Pain Scale: 0 Treatments Prior to Arrival: none - Related Data Home Medications Medication Instructions Recorded Confirmed Ascorbic Acid [Vitamin C] 1,000 mg PO DAILY 08/27/15 10/11/17 Calcium Carbonate/Vitamin D3 1 each PO DAILY 08/27/15 10/11/17 [Calcium 600 + Vit D Softgel] Multivit-Min/FA/Lycopen/Lutein 1 each PO DAILY 08/27/15 10/11/17 [Centrum Silver Tablet] Mirtazapine 7.5 mg PO HS 03/26/17 10/11/17 Clopidogrel [Plavix] 75 mg PO DAILY 05/01/17 10/11/17 Ipratropium/Albuterol Neb [Duoneb] 3 ml IH Q2H PRN 09/06/17 10/11/17 Ipratropium/Albuterol Neb [Duoneb] 3 ml IH QID 09/06/17 10/11/17 Lisinopril [Zestril] 10 mg PO QPM 09/06/17 10/11/17 Lisinopril [Zestril] 20 mg PO QAM 09/06/17 10/11/17 Omeprazole [PriLOSEC] 40 mg PO DAILY 09/06/17 10/11/17 Guaifenesin 400 mg PO BID 10/11/17 10/11/17 Levofloxacin [Levaquin] 500 mg PO DAILY 10/11/17 10/11/17 Ondansetron [Zofran] 8 mg PO Q8HR 10/11/17 10/11/17 Psyllium Husk [Konsyl] 5 / PO DAILY 10/11/17 10/11/17 Previous Rx's Medication Instructions Recorded Benzonatate [Tessalon] 100 mg PO TID PRN #90 capsule 07/09/17 Albuterol Sulfate [Albuterol 2 puff IH Q4HR PRN #0 07/30/17 Inhaler] amLODIPine [Norvasc] 5 mg PO DAILY #30 tablet 07/30/17 LORazepam [Ativan] 1 mg PO TID PRN #10 tablet 09/16/17 Loperamide [Imodium] 1 mg PO QID PRN udc 09/16/17 Metoprolol [Lopressor] 12.5 mg PO BID tablet 09/16/17 Simethicone [Gas-X] 80 mg PO TID PRN tab.chew 09/16/17 predniSONE [PredniSONE] 40 mg PO DAILY #3 tablet 09/16/17 Allergies Allergy/AdvReac Type Severity Reaction Status Date / Time metronidazole [From Flagyl] Allergy Agitated Verified 10/11/17 07:19 Oxycodone [From Percocet] Allergy Agitated Verified 10/11/17 07:19 codeine AdvReac See Verified 10/11/17 07:19 Comments Limitations: ROS unobtainable due to patients medical condition (Altered mental status/unresponsive) Constitutional: Denies: fever, chills, weakness, weight change Eyes: Denies: eye pain, eye discharge, vision change ENT ED: Denies: ear pain, throat pain, dental pain, hearing loss, epistaxis, congestion, dysphagia Cardiovascular: Denies: chest pain, palpitations, dyspnea on exertion, edema, syncope Respiratory: Reports: as per HPI, dyspnea. Denies: cough, wheezes, hemoptysis, stridor Gastrointestinal: Denies: abdominal pain, nausea, vomiting, diarrhea, constipation, hematemesis, melena, hematochezia Genitourinary: Denies: dysuria, frequency, hematuria, discharge Musculoskeletal: Denies: back pain, neck pain, arthralgia, myalgia Integumentary: Denies: rash, abrasion, lesions Neurological: Denies: headache, weakness, numbness, paresthesias, confusion, abnormal gait, vertigo Psychiatric: Denies: anxiety, depression, suicidal thoughts, homicidal thoughts , auditory hallucinations, visual hallucinations Endocrine: Denies: fatigue Hematological/Lymphatic: Denies: easy bleeding, easy bruising Allergic/Immunologic: Denies: facial swelling, urticaria Past Medical History - Past Medical History Attestation: Yes The following information was validated with the patient. Source: old records reviewed, nursing notes reviewed Medical history: Reports: cancer, diabetes, GERD, hypertension, peripheral artery disease, renal disease, other Surgical history: Reports: carotid endarterectomy, hip replacement Psychiatric history: Reports: anxiety - Social History Smoking Status: Former smoker Smokeless Tobacco Status: No Alcohol use: Reports: none Drug use: Reports: none Physical Exam - General Limitations: altered mental status General appearance: lethargic, in distress - Head Head exam: atraumatic, normocephalic, normal inspection - ENT ENT exam: mucous membranes moist - Neck Neck exam: Present: normal inspection, full ROM, trachea midline - Chest Chest inspection: Present: symmetric chest wall rise - Respiratory Respiratory exam: Present: normal lung sounds bilaterally. Absent: respiratory distress, wheezes, stridor, accessory muscle use, prolonged expiratory phase - Cardiovascular Cardiovascular exam: Present: regular rate, normal rhythm, normal heart sounds - Abdominal Exam Abdominal exam: Present: soft, normal bowel sounds. Absent: distention, rigidity - Extremities Exam Extremities exam: Present: normal inspection, full ROM. Absent: tenderness, pedal edema - Neurological Exam Neurological exam: Absent: alert - Skin Skin exam: Present: warm, dry, pallor Course Course Narrative: Minutes after the patient arrived by EMS, the patient's son arrived to the department as well. As the patient is not able to speak for herself due to her current state, we asked the son regarding CODE STATUS. The son states that he believes that everything is to be done including intubation, and resuscitation if needed. Respiratory was called to the room, and the patient was being prepped for intubation when the patient's daughter which is also her power of collections attorney called to speak with us. The daughter/power of collections attorney states that most recent paperwork that was signed stated that the patient was to be a DNR. Dr. Cunningham spoke with the daughter regarding details of this CODE STATUS. The patient's daughter/POA disclosed to Dr. Cunningham that she does not wish for the patient to be intubated, nor should cardiac resuscitation be performed if necessary. The patient's power of collections attorney/daughter is agreeable to BiPAP and fluid resuscitation/IV antibiotics if needed. Respiratory therapy was notified of this. The patient is currently being placed on a BiPAP. We will perform a sepsis workup on the patient and proceed accordingly. Dr. Jasso, ED attending physician was present during Dr. Cunningham conversation with the patient's power of collections attorney as well. The patient's son has been updated on the patient's power of collections attorney's wishes not to proceed with intubation or vigorous resuscitative measures. CODE STATUS has been changed to DNR CC by Dr. Jasso. Paperwork is on the patient's chart. 1055: I spoke with Dr. Cooley of the hospitalist services agreed to accept the patient for further observation and treatment. He has requested that I speak with Dr. Feliciano, health program specialist. He has been notified and states that he will be happy to consult. - Reevaluation(s) Reevaluation #1: Minutes after being placed on the BiPAP, the patient had significantly improved. She is not opening her eyes and interacting with staff. When asked if she knows where she is, she stated "[place]". She also told her son that she left him. We will maintain current BiPAP settings and titrate accordingly. Complete and thorough workup is in progress. Time: 07:48 Vital Signs Temperature 98.2 F 10/11/17 07:19 Pulse Rate 88 10/11/17 07:19 Respiratory Rate 22 10/11/17 07:19 Blood Pressure 100/72 10/11/17 07:19 O2 Sat by Pulse Oximetry 100 10/11/17 07:19 Temperature 99.5 F 10/11/17 08:35 Pulse Rate 105 10/11/17 10:03 Respiratory Rate 18 10/11/17 10:03 Blood Pressure 86/73 10/11/17 10:03 O2 Sat by Pulse Oximetry 99 10/11/17 10:03 Oxygen Delivery Oxygen Delivery Bipap Medical Decision Making - Medical Records Medical records reviewed: Yes I reviewed the patient's medical records. Laboratory Last Values WBC 29.7 K/mcL (4.3-11.1) H 10/11/17 07:25 RBC 3.56 M/mcL (3.82-4.97) L 10/11/17 07:25 Hgb 9.2 g/dL (11.5-15.4) L 10/11/17 07:25 Hct 32.5 % (35.3-44.9) L 10/11/17 07:25 MCV 91.3 fL (83.0-100.0) 10/11/17 07:25 MCH 25.8 pg (28.0-33.3) L 10/11/17 07:25 MCHC 28.3 g/dL (31.6-35.5) L 10/11/17 07:25 RDW 17.9 % (11.5-14.5) H 10/11/17 07:25 Plt Count 344 K/mcL (140-400) 10/11/17 07:25 MPV 10.8 fL (9.4-12.4) 10/11/17 07:25 Immature Gran % Test Not Performed 10/11/17 07:25 Seg Neutrophils % 96.0 % 10/11/17 07:25 Band Neutrophils % 2.0 % (0-4) 10/11/17 07:25 Lymphocytes % Test Not Performed 10/11/17 07:25 Monocytes % 2.0 % 10/11/17 07:25 Eosinophils % Test Not Performed 10/11/17 07:25 Basophils % Test Not Performed 10/11/17 07:25 Neutrophils # 29.1 K/mcL (1.6-8.9) H 10/11/17 07:25 Lymphocytes # Test Not Performed 10/11/17 07:25 Monocytes # 0.6 K/mcL (0.0-1.3) 10/11/17 07:25 Eosinophils # Test Not Performed 10/11/17 07:25 Basophils # Test Not Performed 10/11/17 07:25 Platelet Estimate Normal (Normal) 10/11/17 07:25 PT 11.1 Seconds (9.4-12.1) 10/11/17 07:25 INR 1.0 10/11/17 07:25 APTT 27.8 Seconds (26.0-36.0) 10/11/17 07:25 Sample Site R Radial 10/11/17 09:41 ABG pH 7.35 pH Units (7.32-7.45) 10/11/17 09:41 ABG pCO2 55 mmHg (35-45) H 10/11/17 09:41 ABG pO2 117 mmHg (85-104) H 10/11/17 09:41 ABG HCO3 31 mEq/L (21-27) H 10/11/17 09:41 ABG Total CO2 32 mEq/L (20-26) H 10/11/17 09:41 ABG O2 Saturation 98 % (95-98) 10/11/17 09:41 ABG Base Excess 4 mEq/L (-2 to 3) H 10/11/17 09:41 Catarino Test N/A 10/11/17 09:41 O2 Delivery Device BiPAP 10/11/17 09:41 Blood Gas Modality BiLevel 10/11/17 09:41 Inspired O2 40.0 (1-15=lpm [id number]=%) 10/11/17 09:41 Sodium 143 mEq/L (136-145) 10/11/17 07:25 Potassium 4.3 mEq/L (3.5-5.1) 10/11/17 07:25 Chloride 103 mEq/L (98-107) 10/11/17 07:25 Carbon Dioxide 30 mEq/L (23-29) H 10/11/17 07:25 BUN 47 mg/dL (8-23) H 10/11/17 07:25 Creatinine 1.09 mg/dL (0.60-1.20) 10/11/17 07:25 Est GFR ( Amer) 57 (> 60) L 10/11/17 07:25 Est GFR (Non-Af Amer) 47 (> 60) L 10/11/17 07:25 BUN/Creatinine Ratio 43 (6-26) H 10/11/17 07:25 Glucose 106 mg/dL (70-105) H 10/11/17 07:25 Calculated Osmolality 309 (280-300) H 10/11/17 07:25 Lactic Acid 1.3 mmol/L (0.5-2.2) 10/11/17 07:53 Calcium 8.7 mg/dL (8.6-10.3) 10/11/17 07:25 Phosphorus 3.8 mg/dL (2.7-4.5) 10/11/17 07:25 Magnesium 2.1 mg/dL (1.6-2.6) 10/11/17 07:25 Total Bilirubin 0.3 mg/dL (0.3-1.0) 10/11/17 07:25 Direct Bilirubin 0.0 mg/dL (0.0-0.2) 10/11/17 07:25 Indirect Bilirubin 0.3 mg/dL (0.0-1.2) 10/11/17 07:25 AST 26 Units/L (13-39) 10/11/17 07:25 ALT 37 Units/L (7-52) 10/11/17 07:25 Alkaline Phosphatase 131 Units/L (34-104) H 10/11/17 07:25 Troponin I 0.74 ng/mL (< 0.04) H* 10/11/17 07:25 Serum Total Protein 5.9 g/dL (6.4-8.9) L 10/11/17 07:25 Albumin 2.8 g/dL (3.5-5.7) L 10/11/17 07:25 Globulin 3.1 g/dL (2.4-3.5) 10/11/17 07:25 Albumin/Globulin Ratio 0.9 (1.1-2.2) L 10/11/17 07:25 Urine Color Yellow (Yellow) 10/11/17 08:03 Urine Clarity Clear (Clear) 10/11/17 08:03 Urine pH 5.5 pH Units (5.0-8.0) 10/11/17 08:03 Ur Specific Dudley 1.017 (1.010-1.025) 10/11/17 08:03 Urine Protein Trace mg/dL (Neg-Trace) 10/11/17 08:03 Urine Glucose (UA) Normal mg/dL (Normal) 10/11/17 08:03 Urine Ketones Negative mg/dL (Negative) 10/11/17 08:03 Urine Blood Negative (Negative) 10/11/17 08:03 Urine Nitrite Negative (Negative) 10/11/17 08:03 Urine Bilirubin Negative (Negative) 10/11/17 08:03 Urine Urobilinogen Normal mg/dL (Normal) 10/11/17 08:03 Ur Leukocyte Esterase Negative (Negative) 10/11/17 08:03 Urine Microscopic RBC 0-3 per hpf (0-3) 10/11/17 08:03 Urine Microscopic WBC 0-3 per hpf (0-3) 10/11/17 08:03 Ur Squamous Epith Cells Many per lpf (None-Few) H 10/11/17 08:03 Urine Bacteria None Seen per hpf (None-Few) 10/11/17 08:03 Hyaline Casts Few per lpf (None-Few) 10/11/17 08:03 Ur Culture Indicated? NO (NO) 10/11/17 08:03 - Lab Data Lab results reviewed: Yes I reviewed the patient's lab results. Result diagrams: 10/11/17 07:25 10/11/17 07:25 Lab Results 10/11/17 10/11/17 10/11/17 Range/Units 07:25 07:25 07:25 WBC 29.7 H (4.3-11.1) K/mcL RBC 3.56 L (3.82-4.97) M/mcL Hgb 9.2 L (11.5-15.4) g/dL Hct 32.5 L (35.3-44.9) % MCV 91.3 (83.0-100.0) fL MCH 25.8 L (28.0-33.3) pg MCHC 28.3 L (31.6-35.5) g/dL RDW 17.9 H (11.5-14.5) % Plt Count 344 (140-400) K/mcL MPV 10.8 (9.4-12.4) fL Immature Gran % Test Not Performed Seg Neutrophils % 96.0 % Band Neutrophils % 2.0 (0-4) % Lymphocytes % Test Not Performed Monocytes % 2.0 % Eosinophils % Test Not Performed Basophils % Test Not Performed Neutrophils # 29.1 H (1.6-8.9) K/mcL Lymphocytes # Test Not Performed Monocytes # 0.6 (0.0-1.3) K/mcL Eosinophils # Test Not Performed Basophils # Test Not Performed Platelet Estimate Normal (Normal) PT 11.1 (9.4-12.1) Seconds INR 1.0 APTT 27.8 (26.0-36.0) Seconds Sample Site ABG pH (7.32-7.45) pH Units ABG pCO2 (35-45) mmHg ABG pO2 (85-104) mmHg ABG HCO3 (21-27) mEq/L ABG Total CO2 (20-26) mEq/L ABG O2 Saturation (95-98) % ABG Base Excess (-2 to 3) mEq/L Catarino Test O2 Delivery Device Blood Gas Modality Inspired O2 (1-15=lpm ao93-334=%) Sodium 143 (136-145) mEq/L Potassium 4.3 (3.5-5.1) mEq/L Chloride 103 (98-107) mEq/L Carbon Dioxide 30 H (23-29) mEq/L BUN 47 H (8-23) mg/dL Creatinine 1.09 (0.60-1.20) mg/dL Est GFR ( Amer) 57 L (> 60) Est GFR (Non-Af Amer) 47 L (> 60) BUN/Creatinine Ratio 43 H (6-26) Glucose 106 H (70-105) mg/dL Calculated Osmolality 309 H (280-300) Lactic Acid (0.5-2.2) mmol/L Calcium 8.7 (8.6-10.3) mg/dL Phosphorus 3.8 (2.7-4.5) mg/dL Magnesium 2.1 (1.6-2.6) mg/dL Total Bilirubin 0.3 (0.3-1.0) mg/dL Direct Bilirubin 0.0 (0.0-0.2) mg/dL Indirect Bilirubin 0.3 (0.0-1.2) mg/dL AST 26 (13-39) Units/L ALT 37 (7-52) Units/L Alkaline Phosphatase 131 H (34-104) Units/L Troponin I (< 0.04) ng/mL Serum Total Protein 5.9 L (6.4-8.9) g/dL Albumin 2.8 L (3.5-5.7) g/dL Globulin 3.1 (2.4-3.5) g/dL Albumin/Globulin Ratio 0.9 L (1.1-2.2) Urine Color (Yellow) Urine Clarity (Clear) Urine pH (5.0-8.0) pH Units Ur Specific Dudley (1.010-1.025) Urine Protein (Neg-Trace) mg/dL Urine Glucose (UA) (Normal) mg/dL Urine Ketones (Negative) mg/dL Urine Blood (Negative) Urine Nitrite (Negative) Urine Bilirubin (Negative) Urine Urobilinogen (Normal) mg/dL Ur Leukocyte Esterase (Negative) Urine Microscopic RBC (0-3) per hpf Urine Microscopic WBC (0-3) per hpf Ur Squamous Epith Cells (None-Few) per lpf Urine Bacteria (None-Few) per hpf Hyaline Casts (None-Few) per lpf Ur Culture Indicated? (NO) 10/11/17 10/11/17 10/11/17 Range/Units 07:25 07:53 08:03 WBC (4.3-11.1) K/mcL RBC (3.82-4.97) M/mcL Hgb (11.5-15.4) g/dL Hct (35.3-44.9) % MCV (83.0-100.0) fL MCH (28.0-33.3) pg MCHC (31.6-35.5) g/dL RDW (11.5-14.5) % Plt Count (140-400) K/mcL MPV (9.4-12.4) fL Immature Gran % Seg Neutrophils % % Band Neutrophils % (0-4) % Lymphocytes % Monocytes % % Eosinophils % Basophils % Neutrophils # (1.6-8.9) K/mcL Lymphocytes # Monocytes # (0.0-1.3) K/mcL Eosinophils # Basophils # Platelet Estimate (Normal) PT (9.4-12.1) Seconds INR APTT (26.0-36.0) Seconds Sample Site ABG pH (7.32-7.45) pH Units ABG pCO2 (35-45) mmHg ABG pO2 (85-104) mmHg ABG HCO3 (21-27) mEq/L ABG Total CO2 (20-26) mEq/L ABG O2 Saturation (95-98) % ABG Base Excess (-2 to 3) mEq/L Catarino Test O2 Delivery Device Blood Gas Modality Inspired O2 (1-15=lpm oz89-656=%) Sodium (136-145) mEq/L Potassium (3.5-5.1) mEq/L Chloride (98-107) mEq/L Carbon Dioxide (23-29) mEq/L BUN (8-23) mg/dL Creatinine (0.60-1.20) mg/dL Est GFR ( Amer) (> 60) Est GFR (Non-Af Amer) (> 60) BUN/Creatinine Ratio (6-26) Glucose (70-105) mg/dL Calculated Osmolality (280-300) Lactic Acid 1.3 (0.5-2.2) mmol/L Calcium (8.6-10.3) mg/dL Phosphorus (2.7-4.5) mg/dL Magnesium (1.6-2.6) mg/dL Total Bilirubin (0.3-1.0) mg/dL Direct Bilirubin (0.0-0.2) mg/dL Indirect Bilirubin (0.0-1.2) mg/dL AST (13-39) Units/L ALT (7-52) Units/L Alkaline Phosphatase (34-104) Units/L Troponin I 0.74 H* (< 0.04) ng/mL Serum Total Protein (6.4-8.9) g/dL Albumin (3.5-5.7) g/dL Globulin (2.4-3.5) g/dL Albumin/Globulin Ratio (1.1-2.2) Urine Color Yellow (Yellow) Urine Clarity Clear (Clear) Urine pH 5.5 (5.0-8.0) pH Units Ur Specific Dudley 1.017 (1.010-1.025) Urine Protein Trace (Neg-Trace) mg/dL Urine Glucose (UA) Normal (Normal) mg/dL Urine Ketones Negative (Negative) mg/dL Urine Blood Negative (Negative) Urine Nitrite Negative (Negative) Urine Bilirubin Negative (Negative) Urine Urobilinogen Normal (Normal) mg/dL Ur Leukocyte Esterase Negative (Negative) Urine Microscopic RBC 0-3 (0-3) per hpf Urine Microscopic WBC 0-3 (0-3) per hpf Ur Squamous Epith Cells Many H (None-Few) per lpf Urine Bacteria None Seen (None-Few) per hpf Hyaline Casts Few (None-Few) per lpf Ur Culture Indicated? NO (NO) 10/11/17 Range/Units 09:41 WBC (4.3-11.1) K/mcL RBC (3.82-4.97) M/mcL Hgb (11.5-15.4) g/dL Hct (35.3-44.9) % MCV (83.0-100.0) fL MCH (28.0-33.3) pg MCHC (31.6-35.5) g/dL RDW (11.5-14.5) % Plt Count (140-400) K/mcL MPV (9.4-12.4) fL Immature Gran % Seg Neutrophils % % Band Neutrophils % (0-4) % Lymphocytes % Monocytes % % Eosinophils % Basophils % Neutrophils # (1.6-8.9) K/mcL Lymphocytes # Monocytes # (0.0-1.3) K/mcL Eosinophils # Basophils # Platelet Estimate (Normal) PT (9.4-12.1) Seconds INR APTT (26.0-36.0) Seconds Sample Site R Radial ABG pH 7.35 (7.32-7.45) pH Units ABG pCO2 55 H (35-45) mmHg ABG pO2 117 H (85-104) mmHg ABG HCO3 31 H (21-27) mEq/L ABG Total CO2 32 H (20-26) mEq/L ABG O2 Saturation 98 (95-98) % ABG Base Excess 4 H (-2 to 3) mEq/L Catarino Test N/A O2 Delivery Device BiPAP Blood Gas Modality BiLevel Inspired O2 40.0 (1-15=lpm [id number]=%) Sodium (136-145) mEq/L Potassium (3.5-5.1) mEq/L Chloride (98-107) mEq/L Carbon Dioxide (23-29) mEq/L BUN (8-23) mg/dL Creatinine (0.60-1.20) mg/dL Est GFR ( Amer) (> 60) Est GFR (Non-Af Amer) (> 60) BUN/Creatinine Ratio (6-26) Glucose (70-105) mg/dL Calculated Osmolality (280-300) Lactic Acid (0.5-2.2) mmol/L Calcium (8.6-10.3) mg/dL Phosphorus (2.7-4.5) mg/dL Magnesium (1.6-2.6) mg/dL Total Bilirubin (0.3-1.0) mg/dL Direct Bilirubin (0.0-0.2) mg/dL Indirect Bilirubin (0.0-1.2) mg/dL AST (13-39) Units/L ALT (7-52) Units/L Alkaline Phosphatase (34-104) Units/L Troponin I (< 0.04) ng/mL Serum Total Protein (6.4-8.9) g/dL Albumin (3.5-5.7) g/dL Globulin (2.4-3.5) g/dL Albumin/Globulin Ratio (1.1-2.2) Urine Color (Yellow) Urine Clarity (Clear) Urine pH (5.0-8.0) pH Units Ur Specific Dudley (1.010-1.025) Urine Protein (Neg-Trace) mg/dL Urine Glucose (UA) (Normal) mg/dL Urine Ketones (Negative) mg/dL Urine Blood (Negative) Urine Nitrite (Negative) Urine Bilirubin (Negative) Urine Urobilinogen (Normal) mg/dL Ur Leukocyte Esterase (Negative) Urine Microscopic RBC (0-3) per hpf Urine Microscopic WBC (0-3) per hpf Ur Squamous Epith Cells (None-Few) per lpf Urine Bacteria (None-Few) per hpf Hyaline Casts (None-Few) per lpf Ur Culture Indicated? (NO) - Radiology Data Radiology results reviewed: Yes I reviewed the patient's radiology results. Chest X-Ray 10/11/17 07:35 IMPRESSION: 1. Stable chest x-ray with right upper lobe airspace disease and pleural thickening compatible with known underlying malignancy. 2. COPD. D/ / Andres Solano MD / Andres Solano MD Interpreting Provider: Andres Solano MD - EKG Data EKG #1 EKG attestation: Yes I reviewed and interpreted this EKG. EKG results narrative: EKG reviewed by Dr. Jasso as well. EKG shows sinus tachycardia with frequent supraventricular premature complexes at a rate of 101 bpm. MS interval 127, QRS duration 166, QT/QTc interval 306/364. No ST elevation noted.
[2017-10-11 07:53] LABS: Prothrombin Time 11.1 Seconds (9.4-12.1)
[2017-10-11 07:54] LABS: Hematocrit 32.5 % (35.3-44.9); Hemoglobin 9.2 g/dL (11.5-15.4); Mean Corpuscular HGB Conc 28.3 g/dL (31.6-35.5); Mean Corpuscular Hemoglobin 25.8 pg (28.0-33.3); Mean Corpuscular Volume 91.3 fL (83.0-100.0); Mean Platelet Volume 10.8 fL (9.4-12.4); Platelet Count 344 K/mcL (140-400); Red Blood Count 3.56 M/mcL (3.82-4.97); Red Cell Distribution Width 17.9 % (11.5-14.5)
[2017-10-11 07:56] LABS: Activated Partial Thrombo Time 27.8 Seconds (26.0-36.0)
[2017-10-11 08:01] LABS: Albumin 2.8 g/dL (3.5-5.7); Albumin/Globulin Ratio 0.9 (1.1-2.2); Bilirubin,Indirect 0.3 mg/dL (0.0-1.2); Bilirubin,Total 0.3 mg/dL (0.3-1.0); Calcium 8.7 mg/dL (8.6-10.3); Globulin 3.1 g/dL (2.4-3.5); Magnesium 2.1 mg/dL (1.6-2.6); Phosphorous 3.8 mg/dL (2.7-4.5); Potassium 4.3 mEq/L (3.5-5.1); Total Protein 5.9 g/dL (6.4-8.9)
[2017-10-11 08:19] LABS: Bilirubin,Urine Negative (Negative); Blood,Urine Negative (Negative); Clarity,Urine Clear (Clear); Color,Urine Yellow (Yellow); Glucose,Urine (UA) Normal (Normal); Ketones,Urine Negative (Negative); Leukocyte Esterase,Urine Negative (Negative); Nitrite,Urine Negative (Negative); PH,Urine 5.5 pH Units (5.0-8.0); Protein,Urine Trace mg/dL (Neg-Trace); Specific Gravity,Urine 1.017 (1.010-1.025); Urobilinogen,Urine Normal (Normal)
[2017-10-11 08:22] LABS: Bacteria,Urine None Seen per hpf (None-Few); Hyaline Casts,Urine Few per lpf (None-Few); RBC,Urine 0-3 per hpf (0-3); Squamous Epithelial Cell,Urine Many per lpf (None-Few); WBC,Urine 0-3 per hpf (0-3)
[2017-10-11] MEDS ORDERED: 0.9 % Sodium Chloride 500 ML IVC ONE ×3 (08:31→11:02)
[2017-10-11] MEDS ORDERED: 0.9 % Sodium Chloride 500 ML ONE (08:32)
[2017-10-11] MEDS ORDERED: Vancomycin 1,000 MG in D5% in Water 250 ML IVPB ONE (08:50)
[2017-10-11] MEDS ORDERED: Cefepime HCl 2,000 MG in D5% in Water (Mini-Bag+) 100 ML IVPB STA (08:50)
[2017-10-11] MEDS ORDERED: Levofloxacin 750 MG/150 ML 750 MG/150 ML BAG IVPB ONE (08:50)
[2017-10-11] MEDS ORDERED: Cefepime HCl 2,000 MG in Water for inj. (sterile) 20 ML 20 ML IVP STA (09:02)
[2017-10-11 09:33] LABS: Monocytes # 0.6 K/mcL (0.0-1.3); Neutrophils # 29.1 K/mcL (1.6-8.9)
[2017-10-11 09:34] LABS: Platelet Estimate Normal (Normal)
[2017-10-11 09:46] LABS: ABG Base Excess 4 mEq/L (-2 to 3); ABG HCO3 31 mEq/L (21-27); ABG Oxygen Saturation 98 % (95-98); ABG PCO2 55 mmHg (35-45); ABG PH 7.35 pH Units (7.32-7.45); ABG PO2 117 mmHg (85-104); ABG TCO2 32 mEq/L (20-26); Blood Gas Modality BiLevel
--- NOTE | 2017-10-11 11:29 | Internal Med History&Physical ---
Date of Encounter: 10/11/17 Time of Encounter: 11:26 Assessment and Plan (1) Healthcare-associated pneumonia Current visit: Yes Status: Acute Data likely post obstructive pneumonia we will continue vancomycin cefepime and the Levaquin (2) Non-ST elevated myocardial infarction (non-STEMI) Current visit: Yes Status: Acute Medical treatment patient now a DNR CCA comfort measure (3) Respiratory distress Current visit: Yes Status: Acute Patient clinically stable on BiPAP has postobstructive pneumonia (4) Sepsis Current visit: Yes Status: Acute Lactic acid sofar unremarkable but she has white count high febrile and tachycardia Qualifiers: Sepsis type: sepsis due to unspecified organism Qualified Code(s): A41.9 - Sepsis, unspecified organism (5) COPD exacerbation Current visit: No Status: Chronic With acute respiratory failure (6) Leukocytosis Current visit: No Status: Acute White count 30,000 from sepsis Qualifiers: Leukocytosis type: unspecified Qualified Code(s): D72.829 - Elevated white blood cell count, unspecified (7) Diabetes mellitus Current visit: No Status: Chronic Chronic will place on sliding scale Qualifiers: Diabetes mellitus type: type 2 Diabetes mellitus complication status: without complication Diabetes mellitus jail insulin use: without jail use Qualified Code(s): E11.9 - Type 2 diabetes mellitus without complications (8) Squamous cell carcinoma of right lung Current visit: No Status: Chronic (9) Hypotension Current visit: No Status: Resolved Qualifiers: Hypotension type: orthostatic hypotension Qualified Code(s): I95.1 - Orthostatic hypotension Internal Medicine - H&P: HPI Chief complaint: unresponsivenss Admitted From: Emergency Dept Plans for Post Hospital Care: Home History of present illness: Ms. Rogers is a 87 year old female Patient with history of lung cancer, hypertension, post obstructive pneumonia recently, diabetes, COPD, hypertension, undernutrition, patient was brought into the emergency room due to unresponsiveness and hypoxic from snf she had agonal breathing and obtunded she was placed on BiPAP after been on BiPAP for a while patient began to wake up and able to respond ABG was unremarkable. 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 Past Med Surg Social Fam HX - Past Medical History Medical history: cancer, diabetes, GERD, hypertension, peripheral artery disease , renal disease, other Psychiatric history: anxiety - Past Surgical History Surgical History: carotid endarterectomy, hip replacement - Social History Smoking Status: Former smoker Smokeless Tobacco Status: No Alcohol use: none Drug use: none - Family History Mother Hx Family Neurologic Disorders: Yes (stroke) Internal Medicine - H&P: Meds Ascorbic Acid [Vitamin C] 1,000 mg PO DAILY 08/27/15 [History] Calcium Carbonate/Vitamin D3 [Calcium 600 + Vit D Softgel] 1 each PO DAILY 08/27 [History] Multivit-Min/FA/Lycopen/Lutein [Centrum Silver Tablet] 1 each PO DAILY 08/27/15 [History] Mirtazapine 7.5 mg PO HS 03/26/17 [History] Clopidogrel [Plavix] 75 mg PO DAILY 05/01/17 [History] Benzonatate [Tessalon] 100 mg PO TID PRN #90 capsule 07/09/17 [Rx] Albuterol Sulfate [Albuterol Inhaler] 2 puff IH Q4HR PRN #0 07/30/17 [Rx] amLODIPine [Norvasc] 5 mg PO DAILY #30 tablet 07/30/17 [Rx] Ipratropium/Albuterol Neb [Duoneb] 3 ml IH Q2H PRN 09/06/17 [History] Ipratropium/Albuterol Neb [Duoneb] 3 ml IH QID 09/06/17 [History] Lisinopril [Zestril] 10 mg PO QPM 09/06/17 [History] Lisinopril [Zestril] 20 mg PO QAM 09/06/17 [History] Omeprazole [PriLOSEC] 40 mg PO DAILY 09/06/17 [History] LORazepam [Ativan] 1 mg PO TID PRN #10 tablet 09/16/17 [Rx] Loperamide [Imodium] 1 mg PO QID PRN udc 09/16/17 [Rx] Metoprolol [Lopressor] 12.5 mg PO BID tablet 09/16/17 [Rx] Simethicone [Gas-X] 80 mg PO TID PRN tab.chew 09/16/17 [Rx] predniSONE [PredniSONE] 40 mg PO DAILY #3 tablet 09/16/17 [Rx] Guaifenesin 400 mg PO BID 10/11/17 [History] Levofloxacin [Levaquin] 500 mg PO DAILY 10/11/17 [History] Ondansetron [Zofran] 8 mg PO Q8HR 10/11/17 [History] Psyllium Husk [Konsyl] 5 / PO DAILY 10/11/17 [History] 3 Allergy/AdvReac Type Severity Reaction Status Date / Time metronidazole [From Flagyl] Allergy Agitated Verified 10/11/17 07:19 Oxycodone [From Percocet] Allergy Agitated Verified 10/11/17 07:19 codeine AdvReac See Verified 10/11/17 07:19 Comments All Systems PM: A 10-system review of systems was performed and is negative for pertinent findings except as documented above in the HPI. - Constitutional Constitutional: as per HPI - EENT Eyes: as per HPI - Cardiovascular Cardiovascular ROS IM: irregular heart rhythm - Respiratory Respiratory: dyspnea, dyspnea on exertion - Gastrointestinal Gastrointestinal: no abdominal pain, no diarrhea, no hematemesis, no hematochezia, no melena, no nausea, no vomiting - Constitutional Vitals: Temp Pulse Resp BP Pulse Ox 99.5 F 102 10 77/51 99 10/11/17 08:35 10/11/17 11:13 10/11/17 11:13 10/11/17 11:13 10/11/17 11:13 General appearance: Present: cachectic, underweight - Eye Eye exam: Present: PERRL, conjuntiva pink, sclera anicteric Pupils: Present: PERRL - Respiratory Respiratory exam: Present: prolonged expiratory phase, rhonchi - Cardiovascular Cardiovascular exam: Present: systolic murmur, tachycardia - GI/Abdominal GI/Abdominal exam: Present: normal bowel sounds, soft, no peritoneal signs. Absent: distended, tenderness Internal Med - H&P Results - Labs CBC & Chem 7: 10/11/17 07:25 10/11/17 07:25 Labs: Short CBC 10/11/17 Range/Units 07:25 WBC 29.7 H (4.3-11.1) K/mcL Hgb 9.2 L (11.5-15.4) g/dL Hct 32.5 L (35.3-44.9) % Plt Count 344 (140-400) K/mcL Neutrophils # 29.1 H (1.6-8.9) K/mcL BMP 10/11/17 07:25 Sodium 143 Potassium 4.3 Chloride 103 Carbon Dioxide 30 H BUN 47 H Creatinine 1.09 Glucose 106 H Calcium 8.7 Cardiac Enzymes 10/11/17 Range/Units 07:25 Troponin I 0.74 H* (< 0.04) ng/mL Liver Function 10/11/17 Range/Units 07:25 Total Bilirubin 0.3 (0.3-1.0) mg/dL Direct Bilirubin 0.0 (0.0-0.2) mg/dL AST 26 (13-39) Units/L ALT 37 (7-52) Units/L Alkaline Phosphatase 131 H (34-104) Units/L Albumin 2.8 L (3.5-5.7) g/dL Urine 10/11/17 Range/Units 08:03 Urine Color Yellow (Yellow) Urine Clarity Clear (Clear) Urine pH 5.5 (5.0-8.0) pH Units Ur Specific [place] 1.017 (1.010-1.025) Urine Protein Trace (Neg-Trace) mg/dL Urine Glucose (UA) Normal (Normal) mg/dL - ABG Interpretation ABG results: 10/11/17 09:41 ABG pH 7.35 ABG pCO2 55 H ABG pO2 117 H ABG HCO3 31 H ABG Total CO2 32 H ABG O2 Saturation 98 ABG Base Excess 4 H - Impressions ITS Impressions Chest X-Ray 10/11/17 07:35 IMPRESSION: 1. Stable chest x-ray with right upper lobe airspace disease and pleural thickening compatible with known underlying malignancy. 2. COPD. D/ / Andres Solano MD / Andres Solano MD Interpreting Provider: Andres Solano MD
[2017-10-11] MEDS ORDERED: Naloxone 0.4 MG/ML INJ IVP PRN (11:37)
[2017-10-11] MEDS ORDERED: Vancomycin 500 MG in D5% in Water (Mini-Bag+) 100 ML IVPB SCH (12:00)
--- NOTE | 2017-10-11 12:44 | Pulmonology Consult Note ---
Date of Encounter: 10/12/17 Time of Encounter: 12:30 Assessment and Plan (1) Acute and chronic respiratory failure ([id number]) Current Visit: Yes Status: Acute Patient is on BIPAP completely somnolent patient was known to our service spoke with Mrs Florence never wanted any invasive procedure like bronchoscopy , To continue BIPAP as tolerated . Bronchoscopy can be a high risk for intubation with this acute decompensation if she turns around will ask patient about the procedure , family was not at bedside to discuss . At this point as patient is on BIPAP Bronchoscopy high risk of procedure for intubation and . Will try conservative measures to see whether she will turn around Qualifiers: Qualified Code(s): J96.20 - Acute and chronic respiratory failure, unspecified whether with hypoxia or hypercapnia (2) Pneumonia Current Visit: No Status: Acute Can be post obstructive pneumonia to continue broad spectrum antibiotics . Qualifiers: Pneumonia type: due to unspecified organism Laterality: right Lung location: upper lobe of lung Qualified Code(s): J18.1 - Lobar pneumonia, unspecified organism (3) Sepsis Current Visit: Yes Status: Acute Most likely pneumonia to continue the broad spectrum antibiotics . Qualifiers: Qualified Code(s): A41.9 - Sepsis, unspecified organism (4) COPD exacerbation Current Visit: No Status: Chronic To give scheduled bronchodilators and steroids . History of Present Illness Consult date: 10/11/17 Requesting physician: Lucho Feliciano Reason for consult: COPD, pneumonia, other Chief complaint: Difficulty in breathing History of present illness: 87 year old female well known to our service advanced COPD and Lung ca not a candidate for chemo radiation comes with difficulty in breathing , altered mental status in the past Mrs Florence was offered Bronchoscopy she declined multiple times with and , when i saw the patient she was completely somnolent not participating in history and taking . Pulmonary was consulted whether Bronchoscopy will be helpful Past Med Surg Social Fam HX - Past Medical History Medical history: cancer, diabetes, GERD, hypertension, peripheral artery disease , renal disease, other Psychiatric history: anxiety - Past Surgical History Surgical History: carotid endarterectomy, hip replacement - Social History Smoking Status: Former smoker Smokeless Tobacco Status: No Alcohol use: none Drug use: none - Family History Mother Hx Family Neurologic Disorders: Yes (stroke) Medications and Allergies Ascorbic Acid [Vitamin C] 1,000 mg PO DAILY 08/27/15 [History] Calcium Carbonate/Vitamin D3 [Calcium 600 + Vit D Softgel] 1 each PO DAILY 08/27 [History] Multivit-Min/FA/Lycopen/Lutein [Centrum Silver Tablet] 1 each PO DAILY 08/27/15 [History] Mirtazapine 7.5 mg PO HS 03/26/17 [History] Clopidogrel [Plavix] 75 mg PO DAILY 05/01/17 [History] Benzonatate [Tessalon] 100 mg PO TID PRN #90 capsule 07/09/17 [Rx] Albuterol Sulfate [Albuterol Inhaler] 2 puff IH Q4HR PRN #0 07/30/17 [Rx] amLODIPine [Norvasc] 5 mg PO DAILY #30 tablet 07/30/17 [Rx] Ipratropium/Albuterol Neb [Duoneb] 3 ml IH Q2H PRN 09/06/17 [History] Ipratropium/Albuterol Neb [Duoneb] 3 ml IH QID 09/06/17 [History] Lisinopril [Zestril] 10 mg PO QPM 09/06/17 [History] Lisinopril [Zestril] 20 mg PO QAM 09/06/17 [History] Omeprazole [PriLOSEC] 40 mg PO DAILY 09/06/17 [History] LORazepam [Ativan] 1 mg PO TID PRN #10 tablet 09/16/17 [Rx] Loperamide [Imodium] 1 mg PO QID PRN udc 09/16/17 [Rx] Metoprolol [Lopressor] 12.5 mg PO BID tablet 09/16/17 [Rx] Simethicone [Gas-X] 80 mg PO TID PRN tab.chew 09/16/17 [Rx] predniSONE [PredniSONE] 40 mg PO DAILY #3 tablet 09/16/17 [Rx] Guaifenesin 400 mg PO BID 10/11/17 [History] Levofloxacin [Levaquin] 500 mg PO DAILY 10/11/17 [History] Ondansetron [Zofran] 8 mg PO Q8HR 10/11/17 [History] Psyllium Husk [Konsyl] 5 / PO DAILY 10/11/17 [History] 3 Allergy/AdvReac Type Severity Reaction Status Date / Time metronidazole [From Flagyl] Allergy Agitated Verified 10/11/17 07:19 Oxycodone [From Percocet] Allergy Agitated Verified 10/11/17 07:19 codeine AdvReac See Verified 10/11/17 07:19 Comments ROS unobtainable: due to mental status All Systems: A 10-system review of systems was performed and is negative for pertinent findings except as documented above in the HPI. Physical Examination Auscultation: bilateral: diminished breath sounds (basilar breadth sounds ), wheezes Gait: other (Patient completely somnolent ) unable to assess due to mental status Results - Laboratory Findings CBC and BMP: 10/11/17 07:25 10/11/17 07:25 ABG ABG pH 7.35 pH Units (7.32-7.45) 10/11/17 09:41 ABG pCO2 55 mmHg (35-45) H 10/11/17 09:41 ABG pO2 117 mmHg (85-104) H 10/11/17 09:41 ABG O2 Saturation 98 % (95-98) 10/11/17 09:41 PT/INR, D-dimer PT 11.1 Seconds (9.4-12.1) 10/11/17 07:25 Abnormal lab findings: Abnormal lab results WBC 29.7 K/mcL (4.3-11.1) H 10/11/17 07:25 RBC 3.56 M/mcL (3.82-4.97) L 10/11/17 07:25 Hgb 9.2 g/dL (11.5-15.4) L 10/11/17 07:25 Hct 32.5 % (35.3-44.9) L 10/11/17 07:25 MCH 25.8 pg (28.0-33.3) L 10/11/17 07:25 MCHC 28.3 g/dL (31.6-35.5) L 10/11/17 07:25 RDW 17.9 % (11.5-14.5) H 10/11/17 07:25 Neutrophils # 29.1 K/mcL (1.6-8.9) H 10/11/17 07:25 ABG pCO2 55 mmHg (35-45) H 10/11/17 09:41 ABG pO2 117 mmHg (85-104) H 10/11/17 09:41 ABG HCO3 31 mEq/L (21-27) H 10/11/17 09:41 ABG Total CO2 32 mEq/L (20-26) H 10/11/17 09:41 ABG Base Excess 4 mEq/L (-2 to 3) H 10/11/17 09:41 Carbon Dioxide 30 mEq/L (23-29) H 10/11/17 07:25 BUN 47 mg/dL (8-23) H 10/11/17 07:25 Est GFR ( Amer) 57 (> 60) L 10/11/17 07:25 Est GFR (Non-Af Amer) 47 (> 60) L 10/11/17 07:25 BUN/Creatinine Ratio 43 (6-26) H 10/11/17 07:25 Glucose 106 mg/dL (70-105) H 10/11/17 07:25 Calculated Osmolality 309 (280-300) H 10/11/17 07:25 Alkaline Phosphatase 131 Units/L (34-104) H 10/11/17 07:25 Troponin I 0.74 ng/mL (< 0.04) H* 10/11/17 07:25 Serum Total Protein 5.9 g/dL (6.4-8.9) L 10/11/17 07:25 Albumin 2.8 g/dL (3.5-5.7) L 10/11/17 07:25 Albumin/Globulin Ratio 0.9 (1.1-2.2) L 10/11/17 07:25 Ur Squamous Epith Cells Many per lpf (None-Few) H 10/11/17 08:03 Consult Discharge Plan - Plan Referrals: Otilia Coffey DO [Primary Care Provider] -
--- NOTE | 2017-10-11 12:48 | Palliative - Consult Note ---
Date of Encounter: 10/11/17 Time of Encounter: 11:20 - Assessment and Plan (1) Pneumonia Current Visit: No Status: Acute Assessment and plan: Most likely a postobstructive pneumonia. Antibiotics have already been prescribed. He patient had been recommended for a bronchoscopy during last hospitalization this had not yet been done. Acquired if they would want to have it done had numerous questions. After discussion with the hospitalist I put in a consult to pulmonary to answer their questions. Qualifiers: Pneumonia type: due to unspecified organism Laterality: right Lung location: upper lobe of lung Qualified Code(s): J18.1 - Lobar pneumonia, unspecified organism (2) Acute respiratory failure with hypoxia Current Visit: No Status: Acute Assessment and plan: The patient is on BiPAP at this time and she is tolerating it although not well. She does not wish to be intubated this was made clear by the family earlier today. Continue BiPAP for as long as she can tolerate it and is needed. (3) Mass of upper lobe of right lung Current Visit: No Status: Chronic Assessment and plan: Patient has turned down chemotherapy in the past, but was considering bronchoscopy. pulmonary has been consulted regarding the possibility of a bronchoscopy. (4) Goals of care, counseling/discussion Current Visit: No Status: Acute Assessment and plan: Marta had already decided on DO NOT RESUSCITATE Comfort Care DO NOT INTUBATE. Mike that they have actually gone with full DNR comfort care. Confirm the DO NOT INTUBATE DO NOT RESUSCITATE aspect of the order they still are interested in some aggressive care potentially. He understand that if the patient fails the BiPAP given that there is no intubation there is no further unavailable other than comfort measures only. Given the labs on the patient's admission. And the past medical history I believe that this patient is hospice appropriate and if the patient and family desire to stop BiPAP incision to general inpatient would be very appropriate. Patient did come from [facility] so if went GIP could transition back to alf if needed. Palliative-CN HPI - Data of Consult Patient: known to practice within the last 3 years Requesting Physician: Janett Son MD Primary Care Provider: Otilia Coffey DO - Consult Narrative Palliative Care/Comfort Measures: Palliative care History of present illness: Ms. Rogers is a 87 year old female With a history of lung cancer, hypertension, postobstructive pneumonia for which she was recently hospitalized, diabetes COPD and hypertension who was brought from [facility] in an unresponsive hypoxemic condition. She had agonal breathing and was obtunded. Placed on BiPAP and after a while the BiPAP did seem to work for her and she woke up. ABG was unremarkable. He to 7.35. Marta ended up opting for DNR CCA, DNI status. She continues to have low blood pressure, and very high white count. Care was consulted due to the fact the patient had cystoscopy having bronchoscopy or any further workup of the lung cancer in the past and so the consult was put in for goals of care. CODE STATUS is are to been changed to DNR comfort care. At this time the patient is on BiPAP she is tolerating it but not well she does not like it. He does not complain about any pain except from the mask and she states her breathing is better. CC: Janett Son MD sob Past Med Surg Social Fam HX - Past Medical History Medical history: cancer, diabetes, GERD, hypertension, peripheral artery disease , renal disease, other Psychiatric history: anxiety - Past Surgical History Surgical History: carotid endarterectomy, hip replacement - Social History Smoking Status: Former smoker Smokeless Tobacco Status: No Alcohol use: none Drug use: none - Family History Mother Hx Family Neurologic Disorders: Yes (stroke) Medications and Allergies Ascorbic Acid [Vitamin C] 1,000 mg PO DAILY 08/27/15 [History] Calcium Carbonate/Vitamin D3 [Calcium 600 + Vit D Softgel] 1 each PO DAILY 08/27 [History] Multivit-Min/FA/Lycopen/Lutein [Centrum Silver Tablet] 1 each PO DAILY 08/27/15 [History] Mirtazapine 7.5 mg PO HS 03/26/17 [History] Clopidogrel [Plavix] 75 mg PO DAILY 05/01/17 [History] Benzonatate [Tessalon] 100 mg PO TID PRN #90 capsule 07/09/17 [Rx] Albuterol Sulfate [Albuterol Inhaler] 2 puff IH Q4HR PRN #0 07/30/17 [Rx] amLODIPine [Norvasc] 5 mg PO DAILY #30 tablet 07/30/17 [Rx] Ipratropium/Albuterol Neb [Duoneb] 3 ml IH Q2H PRN 09/06/17 [History] Ipratropium/Albuterol Neb [Duoneb] 3 ml IH QID 09/06/17 [History] Lisinopril [Zestril] 10 mg PO QPM 09/06/17 [History] Lisinopril [Zestril] 20 mg PO QAM 09/06/17 [History] Omeprazole [PriLOSEC] 40 mg PO DAILY 09/06/17 [History] LORazepam [Ativan] 1 mg PO TID PRN #10 tablet 09/16/17 [Rx] Loperamide [Imodium] 1 mg PO QID PRN udc 09/16/17 [Rx] Metoprolol [Lopressor] 12.5 mg PO BID tablet 09/16/17 [Rx] Simethicone [Gas-X] 80 mg PO TID PRN tab.chew 09/16/17 [Rx] predniSONE [PredniSONE] 40 mg PO DAILY #3 tablet 09/16/17 [Rx] Guaifenesin 400 mg PO BID 10/11/17 [History] Levofloxacin [Levaquin] 500 mg PO DAILY 10/11/17 [History] Ondansetron [Zofran] 8 mg PO Q8HR 10/11/17 [History] Psyllium Husk [Konsyl] 5 / PO DAILY 10/11/17 [History] 3 Allergy/AdvReac Type Severity Reaction Status Date / Time metronidazole [From Flagyl] Allergy Agitated Verified 10/11/17 07:19 Oxycodone [From Percocet] Allergy Agitated Verified 10/11/17 07:19 codeine AdvReac See Verified 10/11/17 07:19 Comments - Constitutional Constitutional ROS PAL: no anorexia, no chills - EENT Eyes: no dry eye, no pain Ears: no ear discharge, no ear pain Ears, nose, mouth, throat: no mouth pain, no nasal congestion - Cardiovascular Cardiovascular ROS: dyspnea on exertion, irregular heart rhythm, no chest pain, no chest pain at rest - Respiratory Respiratory: dyspnea, dyspnea on exertion - Gastrointestinal Gastrointestinal: no abdominal pain, no constipation, no diarrhea, no nausea, no vomiting - Genitourinary Palliative ROS female: no urinary frequency, no urinary hesitancy - Musculoskeletal Musculoskeletal ROS IM: no muscle weakness, no myalgias - Integumentary ROS Integumentary: no sores, no unusual bruising - Neurological Neurological ROS: no focal weakness, no frequent falls, no lack of coordination - Psychiatric Psychiatric general PM: confusion, no homicidal ideation, no suicidal ideation - Endocrine Endocrine IM: other (Positive for diabetes) Palliative Care-Exam - Constitutional Vitals: Temp Pulse Resp BP Pulse Ox 99.5 F 92 15 98/58 99 10/11/17 08:35 10/11/17 11:58 10/11/17 11:58 10/11/17 11:58 10/11/17 11:58 General appearance: Present: no acute distress - Head Head Exam: Present: atraumatic, normal inspection - Eye Eye exam: Present: normal appearance - ENT ENT exam: Present: mucous membranes moist (Has BiPAP in place) - Respiratory Respiratory exam: Present: decreased breath sounds, prolonged expiratory phase, rhonchi - Cardiovascular Cardiovascular exam: Present: irregular rhythm, systolic murmur, tachycardia - GI/Abdominal Exam GI/Abdominal exam: Present: normal bowel sounds, soft. Absent: tenderness - Extremities Exam Extremities exam: Present: normal inspection. Absent: pedal edema, tenderness - Psychiatric Psychiatric exam: Present: normal affect, normal mood. Absent: agitated, anxious - Skin Skin exam: Present: dry, warm Internal Medicine - CN: Reslt - Labs CBC & Chem 7: 10/11/17 07:25 10/11/17 07:25 - ABG Interpretation ABG results: ABG ABG pH 7.35 pH Units (7.32-7.45) 10/11/17 09:41 ABG pCO2 55 mmHg (35-45) H 10/11/17 09:41 ABG pO2 117 mmHg (85-104) H 10/11/17 09:41 ABG O2 Saturation 98 % (95-98) 10/11/17 09:41 PT/INR, D-dimer PT 11.1 Seconds (9.4-12.1) 10/11/17 07:25 Consult Discharge Plan - Plan Referrals: Otilia Coffey DO [Primary Care Provider] - Palliative Quality Palliative Quality: Screen for Code Status: Yes, Screen for Goals of Care: Yes, Screen for Pain: Yes, If Pain Regimen Started, Initiate Bowel Regimen: Yes, Screen for Nausea/Vomitting: Yes
[2017-10-11] MEDS: Ringers Solution, Lactated 1,000 ML IVC SCH (13:20)
[2017-10-12] MEDS: Ringers Solution, Lactated 1,000 ML IVC SCH (02:34)
[2017-10-12] MEDS: *HR* Enoxaparin 30 MG/0.3 ML SYRINGE SQ SCH (05:09)
[2017-10-12] MEDS: *HR* LORazepam 1 MG TABLET PO PRN ×2 (07:35→22:52)
--- NOTE | 2017-10-12 07:35 | Palliative Progress Note ---
Date of Encounter: 10/12/17 Time of Encounter: 07:05 - Assessment and plan (1) Pneumonia Current Visit: No Status: Acute Assessment and plan: On antibiotics plan per hospitalist team will discuss with family later today Qualifiers: Pneumonia type: due to unspecified organism Laterality: right Lung location: upper lobe of lung Qualified Code(s): J18.1 - Lobar pneumonia, unspecified organism (2) Acute respiratory failure with hypoxia Current Visit: No Status: Acute Assessment and plan: Has been requiring intermittent BiPAP. The patient does not like the BiPAP but has tolerated at least to a degree. (3) Mass of upper lobe of right lung Current Visit: No Status: Chronic Assessment and plan: Patient is still incredibly ambivalence towards any workup for this mass. All pneumonias may very well be post struck give type pneumonias and without resolution of the mass there is no reasonable expectation of curing the infection. Will discuss further With family today. (4) Goals of care, counseling/discussion Current Visit: No Status: Acute Assessment and plan: Patient is currently DNR comfort care. Per family yesterday the ultimate goal here is to keep her comfortable however they were interested in hearing about the possibility of bronchoscopy. Family was not present when pulmonary came by yesterday I will see if I cannot maybe arrange a meeting for them today and I do not think the patient will ultimately want to have that done. The patient does meet full criteria for hospice if she so desires will discuss that further with she and her family here. I did not discuss that with her at this time is her wish to have the family present for the discussion as well. (5) Anxiety Current Visit: No Status: Acute Assessment and plan: Patient admits to a great deal of fearfulness. However she cannot articulate exactly what is making her anxious. He is normally on some Ativan at home and would like to be back on that. Have discussed overall condition I have addressed at least some of her concerns. The spiritual staff come by to play with her some more. And I prayed with her myself. I will restart her Ativan, make it when necessary only. I will it may cause some respiratory depression, however she can only have it when she asks for it, I believe that this will make her a lot more comfortable, and will also prevent the possibility of benzo withdrawal. Believe the benefits clearly outweigh the risks in this particular patient. At this point comfort care is the paramount I will discuss with family a come in later about possible transitions. - Time Spent With Patient Total time spent is greater than 50% in coordination of care (as documented) at patient's floor/unit and/or counseling patient: - Subjective Interval history: The patient reports eating better today, and has no pain. Admits to being scared and still very unsure if she wants to have a bronchoscopy or not although all indicators thus far have been that she does not. He does feel somewhat anxious and would like to have some of her Ativan back for the anxiety (she is on this at home,). At this time she is awake alert and oriented and breathing well with the mask. - Constitutional Vitals: Abnormal lab results WBC 29.7 K/mcL (4.3-11.1) H 10/11/17 07:25 RBC 3.56 M/mcL (3.82-4.97) L 10/11/17 07:25 Hgb 9.2 g/dL (11.5-15.4) L 10/11/17 07:25 Hct 32.5 % (35.3-44.9) L 10/11/17 07:25 MCH 25.8 pg (28.0-33.3) L 10/11/17 07:25 MCHC 28.3 g/dL (31.6-35.5) L 10/11/17 07:25 RDW 17.9 % (11.5-14.5) H 10/11/17 07:25 Neutrophils # 29.1 K/mcL (1.6-8.9) H 10/11/17 07:25 ABG pCO2 55 mmHg (35-45) H 10/11/17 09:41 ABG pO2 117 mmHg (85-104) H 10/11/17 09:41 ABG HCO3 31 mEq/L (21-27) H 10/11/17 09:41 ABG Total CO2 32 mEq/L (20-26) H 10/11/17 09:41 ABG Base Excess 4 mEq/L (-2 to 3) H 10/11/17 09:41 Carbon Dioxide 30 mEq/L (23-29) H 10/11/17 07:25 BUN 47 mg/dL (8-23) H 10/11/17 07:25 Est GFR ( Amer) 57 (> 60) L 10/11/17 07:25 Est GFR (Non-Af Amer) 47 (> 60) L 10/11/17 07:25 BUN/Creatinine Ratio 43 (6-26) H 10/11/17 07:25 Glucose 106 mg/dL (70-105) H 10/11/17 07:25 Calculated Osmolality 309 (280-300) H 10/11/17 07:25 Alkaline Phosphatase 131 Units/L (34-104) H 10/11/17 07:25 Troponin I 0.74 ng/mL (< 0.04) H* 10/11/17 07:25 Serum Total Protein 5.9 g/dL (6.4-8.9) L 10/11/17 07:25 Albumin 2.8 g/dL (3.5-5.7) L 10/11/17 07:25 Albumin/Globulin Ratio 0.9 (1.1-2.2) L 10/11/17 07:25 Ur Squamous Epith Cells Many per lpf (None-Few) H 10/11/17 08:03 General appearance: Present: no acute distress - Head Head exam: Present: atraumatic, normal inspection - Eye Eye exam: Present: normal appearance - ENT ENT exam: Present: mucous membranes moist - Neck Neck exam: Present: normal inspection - Respiratory Respiratory exam: Present: decreased breath sounds - Cardiovascular Cardiovascular exam: Present: irregular rhythm - GI/Abdominal GI/Abdominal exam: Present: normal bowel sounds, soft. Absent: tenderness - Extremities Exam Extremities exam: Present: normal inspection. Absent: pedal edema, tenderness - Neurological Exam Neurological exam: Present: alert, oriented X3 - Psychiatric Psychiatric exam: Absent: agitated, anxious - Skin Skin exam: Present: dry, warm Palliative Quality Palliative Quality: Screen for Code Status: Yes, Screen for Goals of Care: Yes, Screen for Pain: Yes, If Pain Regimen Started, Initiate Bowel Regimen: Yes, Screen for Nausea/Vomitting: Yes - Labs CBC & Chem 7: 10/11/17 07:25 10/11/17 07:25 - ABG Interpretation ABG results: ABG ABG pH 7.35 pH Units (7.32-7.45) 10/11/17 09:41 ABG pCO2 55 mmHg (35-45) H 10/11/17 09:41 ABG pO2 117 mmHg (85-104) H 10/11/17 09:41 ABG O2 Saturation 98 % (95-98) 10/11/17 09:41 PT/INR, D-dimer PT 11.1 Seconds (9.4-12.1) 10/11/17 07:25 Consult Discharge Plan - Plan Referrals: Otilia Coffey DO [Primary Care Provider] -
[2017-10-12] MEDS ORDERED: Cefepime HCl 1,000 MG in Water for inj. (sterile) 20 ML 10 ML IVPB SCH (09:00)
[2017-10-12] MEDS ORDERED: *HR* LORazepam 1 MG TABLET PO ONE (09:13)
--- NOTE | 2017-10-12 10:52 | Pulmonology Progress Note ---
Date of Encounter: 10/14/17 Time of Encounter: 09:30 Assessment and Plan (1) Acute and chronic respiratory failure ([id number]) Status: Acute Secondary to COPD exacerbation possibility of post obstructive , the RUL opacity is stable when compared to previous imaging to continue intermittent BIPAP . To Keep SPO2 around 90% Patient never wanted Invasive procedures when she was stable. Now she is on BIPAP intermittent bronchoscopy can carry a risk of intubation patient doesnt want to be intubated or CPR . Qualifiers: Respiratory failure complication: unspecified whether with hypoxia or hypercapnia Qualified Code(s): J96.20 - Acute and chronic respiratory failure , unspecified whether with hypoxia or hypercapnia (2) Pneumonia Status: Acute With the stability of The RUL opacity doubt it is pneumonia to continue the antibiotics according to primary team addressed son concerns about bringing up the secretions told them will give her incentive Spirometry and Flutter valve explained to son how it works . Told this will be the best method bringing up secretions since bronchoscopy is invasive has risks of getting intubated counseled that we should adopt conservative approach because of the respiratory status and in line with patient wishes in the past as she declined bronchoscopy . Patient son verbalized understanding all questions answered . Qualifiers: Pneumonia type: due to unspecified organism Laterality: right Lung location: upper lobe of lung Qualified Code(s): J18.1 - Lobar pneumonia, unspecified organism (3) COPD exacerbation Status: Chronic To continue bronchodilators and to start on steroids . Subjective Principal diagnosis: Right upper lobe lung cancer Interval history: Patient is here with acute on chronic respiratory failure most likely COPD exacerbation patient was BIPAP dependent patient is on intermittent BIPAP , patient is slowly getting better . Complains that she didnt get her Ativan . Son was at bedside had a lengthy discussion about bronchopulmonary toileting and possibility for bronchoscopy . Objective PUL Vital signs: Last Vital Signs Temp 98.4 F 10/12/17 10:23 Pulse 97 10/12/17 10:23 Resp 18 10/12/17 10:23 BP 128/63 10/12/17 10:23 Pulse Ox 99 10/12/17 10:23 Auscultation: bilateral: diminished breath sounds, wheezes (mild scattered wheezes ) Cardiovascular: irregular rhythm Results - Laboratory Findings CBC and BMP: 10/11/17 07:25 10/11/17 07:25 ABG ABG pH 7.35 pH Units (7.32-7.45) 10/11/17 09:41 ABG pCO2 55 mmHg (35-45) H 10/11/17 09:41 ABG pO2 117 mmHg (85-104) H 10/11/17 09:41 ABG O2 Saturation 98 % (95-98) 10/11/17 09:41 PT/INR, D-dimer PT 11.1 Seconds (9.4-12.1) 10/11/17 07:25 Abnormal lab findings: Abnormal lab results WBC 29.7 K/mcL (4.3-11.1) H 10/11/17 07:25 RBC 3.56 M/mcL (3.82-4.97) L 10/11/17 07:25 Hgb 9.2 g/dL (11.5-15.4) L 10/11/17 07:25 Hct 32.5 % (35.3-44.9) L 10/11/17 07:25 MCH 25.8 pg (28.0-33.3) L 10/11/17 07:25 MCHC 28.3 g/dL (31.6-35.5) L 10/11/17 07:25 RDW 17.9 % (11.5-14.5) H 10/11/17 07:25 Neutrophils # 29.1 K/mcL (1.6-8.9) H 10/11/17 07:25 ABG pCO2 55 mmHg (35-45) H 10/11/17 09:41 ABG pO2 117 mmHg (85-104) H 10/11/17 09:41 ABG HCO3 31 mEq/L (21-27) H 10/11/17 09:41 ABG Total CO2 32 mEq/L (20-26) H 10/11/17 09:41 ABG Base Excess 4 mEq/L (-2 to 3) H 10/11/17 09:41 Carbon Dioxide 30 mEq/L (23-29) H 10/11/17 07:25 BUN 47 mg/dL (8-23) H 10/11/17 07:25 Est GFR ( Amer) 57 (> 60) L 10/11/17 07:25 Est GFR (Non-Af Amer) 47 (> 60) L 10/11/17 07:25 BUN/Creatinine Ratio 43 (6-26) H 10/11/17 07:25 Glucose 106 mg/dL (70-105) H 10/11/17 07:25 Calculated Osmolality 309 (280-300) H 10/11/17 07:25 Alkaline Phosphatase 131 Units/L (34-104) H 10/11/17 07:25 Troponin I 0.74 ng/mL (< 0.04) H* 10/11/17 07:25 Serum Total Protein 5.9 g/dL (6.4-8.9) L 10/11/17 07:25 Albumin 2.8 g/dL (3.5-5.7) L 10/11/17 07:25 Albumin/Globulin Ratio 0.9 (1.1-2.2) L 10/11/17 07:25 Ur Squamous Epith Cells Many per lpf (None-Few) H 10/11/17 08:03 - Clinical Findings Intake & Output: Intake & Output 10/11/17 10/12/17 10/12/17 23:59 07:59 15:59 Intake Total 0 / 0 1120 / 1120 Output Total 0 / 0 500 / 500 Balance 0 / 0 1120 / 1120 -500 / -500 Weight 36.65 kg Consult Discharge Plan - Plan Referrals: Otilia Coffey DO [Primary Care Provider] -
[2017-10-12] MEDS ORDERED: Albuterol 2.5 MG/3 ML NEBULIZER IH PRN (11:47)
[2017-10-12] MEDS ORDERED: Saliva Stimulant 100ml BOTTLE PO PRN (11:48)
--- NOTE | 2017-10-12 11:52 | Event Note ---
Date of Encounter: 10/13/17 Time of Encounter: 11:51 just commpleted long meeting with patient son and Dr Braun Pulmonary questions were asked and answered. Pulmnary recommended aginist bronch and later in conversation with myself and her son pt also declined it. I put in orders for resp at pulmonary request. overall plan is to return to [facility] finish rehab and then consider for return home. Hospice will probably follow rehab. no invasive procedures are desired by pt or family
[2017-10-12] MEDS: Vancomycin 500 MG in 0.9 % Sodium Chloride Mini Bag 100 ML IVPB SCH (12:00)
--- NOTE | 2017-10-12 13:41 | Electrocardiograph Report ---
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
[2017-10-12] MEDS: Ipratropium/Albuterol Neb 3 ML IH SCH ×2 (15:55→22:49)
--- NOTE | 2017-10-12 17:32 | Internal Med Progress Note ---
Date of Encounter: 10/12/17 Time of Encounter: 17:30 - Assessment and plan (1) Acute and chronic respiratory failure ([id number]) Current Visit: Yes Status: Acute Assessment and plan: Treatment for HCAP secondary to post obstructive pneumonia Vancomycin, Cefepime, Levaquin She has improved somewhat with bipap, Pulmonology consulted in the case if bronchoscopy would be helpful, based on patient's risk factors, she is not a good candidate. 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 Vancomyicn, cefepime, Levaquin (5) COPD exacerbation Current Visit: No Status: Chronic (6) Diabetes mellitus Current Visit: No Status: Chronic Assessment and plan: ISS Qualifiers: Diabetes mellitus type: type 2 Diabetes mellitus complication status: without complication Diabetes mellitus snf insulin use: without snf use Qualified Code(s): E11.9 - Type 2 diabetes mellitus without complications (7) Sepsis Current Visit: Yes Status: Acute Assessment and plan: Continue HCAP treatment. Judicious IV hydration as needed. Qualifiers: Sepsis type: sepsis due to unspecified organism Qualified Code(s): A41.9 - Sepsis, unspecified organism - Subjective Interval history: Patient fatigued from trying to eat. Son is at bedside. She is still in respiratory distress but using O2 mask. - Constitutional Vitals: Temp Pulse Resp BP Pulse Ox 98.2 F 96 17 138/68 94 10/12/17 15:31 10/12/17 15:31 10/12/17 15:31 10/12/17 15:31 10/12/17 15:31 General appearance: Present: cachectic, underweight Exam: CVS: RRR Lungs: using accessory muscles with mild respiratory distress. absent breath sounds at bases. + wheezing, no rales. Abd: nt/nd Ext: no cyanosis, no edema Internal Medicine: Result - Labs CBC & Chem 7: 10/11/17 07:25 10/11/17 07:25 - ABG Interpretation ABG results: ABG ABG pH 7.35 pH Units (7.32-7.45) 10/11/17 09:41 ABG pCO2 55 mmHg (35-45) H 10/11/17 09:41 ABG pO2 117 mmHg (85-104) H 10/11/17 09:41 ABG O2 Saturation 98 % (95-98) 10/11/17 09:41 PT/INR, D-dimer PT 11.1 Seconds (9.4-12.1) 10/11/17 07:25 Consult Discharge Plan - Plan Referrals: Otilia Coffey DO [Primary Care Provider] -
[2017-10-13 00:31] VITALS: BP 112/66
[2017-10-13] MEDS: Ipratropium/Albuterol Neb 3 ML IH SCH ×2 (04:04→11:01)
[2017-10-13] MEDS: *HR* Enoxaparin 30 MG/0.3 ML SYRINGE SQ SCH (06:13)
[2017-10-13] MEDS ORDERED: Cefepime HCl 2,000 MG in Water for inj. (sterile) 20 ML IVP SCH (07:00)
[2017-10-13] MEDS ORDERED: Haloperidol Lactate 5 MG/ML VIAL IVP PRN (07:13)
[2017-10-13] MEDS ORDERED: *HR* LORazepam 1 MG TABLET PO PRN (07:13)
--- NOTE | 2017-10-13 07:35 | Palliative Progress Note ---
Date of Encounter: 10/13/17 Time of Encounter: 06:35 - Assessment and plan (1) Pneumonia Current Visit: No Status: Acute Assessment and plan: On antibiotics plan per hospitalist team leave that the patient is actively declining at this time. See below Qualifiers: Pneumonia type: due to unspecified organism Laterality: right Lung location: upper lobe of lung Qualified Code(s): J18.1 - Lobar pneumonia, unspecified organism (2) Acute respiratory failure with hypoxia Current Visit: No Status: Acute Assessment and plan: Has been requiring intermittent BiPAP. His morning the patient actively declining the BiPAP. And since then has become more obtunded. I believe that this represents a buildup of PE of CO2 in the blood. Pulse ox indicates still in the 90% range. The patient has been resistant to the BiPAP in the past and family is okay with not restarting the BiPAP. I believe that this represents probably a terminal event for the patient. Discussed with the nursing staff about using Haldol and benzodiazepines primarily for this. Lawrence discussion with the family this morning 30 minutes plus I am not entirely sure if the patient does not have some sort of paradoxical reaction to opioids. I believe at this time relates might possibly agitate her enough to make the positive effects of them invalid. Therefore I will stick with Ativan which she has tolerated quite well. Haldol if needed to control any agitation.. (3) Mass of upper lobe of right lung Current Visit: No Status: Chronic Assessment and plan: Patient was able to indicate to her son and I yesterday right after Dr. Lara finished discussing with them she does not want a bronchoscopy. Rebecca from [facility] also recommended against therefore there will be no bronchoscopy. (4) Goals of care, counseling/discussion Current Visit: No Status: Acute Assessment and plan: Patient is currently DNR comfort care. Per family yesterday the ultimate goal here is to keep her comfortable however they were interested in hearing about the possibility of bronchoscopy. Family was not present when pulmonary came by yesterday I will see if I cannot maybe arrange a meeting for them today and I do not think the patient will ultimately want to have that done. The patient does meet full criteria for hospice if she so desires will discuss that further with she and her family here. I did not discuss that with her at this time is her wish to have the family present for the discussion as well. Injuries this morning indicate to me that the patient may be a terminal to terminal. I think she has hours to days left. I discussed this at length with family also discussed the possibility of using opioids to ease her distress. Discussed with the nursing staff about using Haldol and benzodiazepines primarily for this. Lawrence discussion with the family this morning 30 minutes plus I am not entirely sure if the patient does not have some sort of paradoxical reaction to opioids. I believe at this time relates might possibly agitate her enough to make the positive effects of them invalid. Therefore I will stick with Ativan which she has tolerated quite well. Haldol if needed to control any agitation.. (5) Anxiety Current Visit: No Status: Acute Assessment and plan: Patient is nonverbal at this time, however Ativan has been very effective for her we will continue with that. - Time Spent With Patient Total time spent is greater than 50% in coordination of care (as documented) at patient's floor/unit and/or counseling patient: - Subjective Interval history: The patient does not respond to verbal at this time. Per nursing notes patient started having trouble earlier's morning late last night. BiPAP did not wish to have it any further. Patient's been on mask ever since. At this time she appears comfortable but does have an increased respiratory rate. She is unresponsive to voice. - Constitutional Vitals: Abnormal lab results WBC 29.7 K/mcL (4.3-11.1) H 10/11/17 07:25 RBC 3.56 M/mcL (3.82-4.97) L 10/11/17 07:25 Hgb 9.2 g/dL (11.5-15.4) L 10/11/17 07:25 Hct 32.5 % (35.3-44.9) L 10/11/17 07:25 MCH 25.8 pg (28.0-33.3) L 10/11/17 07:25 MCHC 28.3 g/dL (31.6-35.5) L 10/11/17 07:25 RDW 17.9 % (11.5-14.5) H 10/11/17 07:25 Neutrophils # 29.1 K/mcL (1.6-8.9) H 10/11/17 07:25 ABG pCO2 55 mmHg (35-45) H 10/11/17 09:41 ABG pO2 117 mmHg (85-104) H 10/11/17 09:41 ABG HCO3 31 mEq/L (21-27) H 10/11/17 09:41 ABG Total CO2 32 mEq/L (20-26) H 10/11/17 09:41 ABG Base Excess 4 mEq/L (-2 to 3) H 10/11/17 09:41 Carbon Dioxide 30 mEq/L (23-29) H 10/11/17 07:25 BUN 47 mg/dL (8-23) H 10/11/17 07:25 Est GFR ( Amer) 57 (> 60) L 10/11/17 07:25 Est GFR (Non-Af Amer) 47 (> 60) L 10/11/17 07:25 BUN/Creatinine Ratio 43 (6-26) H 10/11/17 07:25 Glucose 106 mg/dL (70-105) H 10/11/17 07:25 Calculated Osmolality 309 (280-300) H 10/11/17 07:25 Alkaline Phosphatase 131 Units/L (34-104) H 10/11/17 07:25 Troponin I 0.74 ng/mL (< 0.04) H* 10/11/17 07:25 Serum Total Protein 5.9 g/dL (6.4-8.9) L 10/11/17 07:25 Albumin 2.8 g/dL (3.5-5.7) L 10/11/17 07:25 Albumin/Globulin Ratio 0.9 (1.1-2.2) L 10/11/17 07:25 Ur Squamous Epith Cells Many per lpf (None-Few) H 10/11/17 08:03 General appearance: Present: mild distress (Increased respiratory rate) - Head Head exam: Present: atraumatic, normal inspection - Eye Eye exam: Present: normal appearance - Respiratory Respiratory exam: Present: decreased breath sounds, tachypnea - Cardiovascular Cardiovascular exam: Present: RRR - GI/Abdominal GI/Abdominal exam: Present: normal bowel sounds, soft. Absent: tenderness - Extremities Exam Extremities exam: Absent: normal inspection (Mottling appears to be present in both legs up above the knee) - Neurological Exam Neurological exam: Present: altered - Psychiatric Psychiatric exam: Absent: agitated, anxious - Skin Skin exam: Present: dry, mottled (The skin is still warm, however mottling is present.), warm Palliative Quality Palliative Quality: Screen for Code Status: Yes, Screen for Goals of Care: Yes, Screen for Pain: Yes, If Pain Regimen Started, Initiate Bowel Regimen: Yes, Screen for Nausea/Vomitting: Yes - Labs CBC & Chem 7: 10/11/17 07:25 10/11/17 07:25 Labs: Laboratory Results - last 24 hr 10/12/17 08:06 Random Vancomycin 8.1 - ABG Interpretation ABG results: ABG ABG pH 7.35 pH Units (7.32-7.45) 10/11/17 09:41 ABG pCO2 55 mmHg (35-45) H 10/11/17 09:41 ABG pO2 117 mmHg (85-104) H 10/11/17 09:41 ABG O2 Saturation 98 % (95-98) 10/11/17 09:41 PT/INR, D-dimer PT 11.1 Seconds (9.4-12.1) 10/11/17 07:25 Consult Discharge Plan - Plan Referrals: Otilia Coffey DO [Primary Care Provider] -
[2017-10-13] MEDS ORDERED: Levofloxacin 750 MG/150 ML 750 MG/150 ML BAG IVPB SCH (09:00)
[2017-10-13] MEDS: Vancomycin 500 MG in 0.9 % Sodium Chloride Mini Bag 100 ML IVPB SCH (11:01)
--- NOTE | 2017-10-13 13:23 | Discharge Summary ---
Date of Encounter: 10/13/17 Time of Encounter: 10:00 - Discharge Diagnosis (1) Acute and chronic respiratory failure ([id number]) Priority: Primary Status: Acute Qualifiers: Respiratory failure complication: unspecified whether with hypoxia or hypercapnia Qualified Code(s): J96.20 - Acute and chronic respiratory failure , unspecified whether with hypoxia or hypercapnia (2) Squamous cell carcinoma of right lung Priority: Secondary Status: Chronic (3) Non-ST elevated myocardial infarction (non-STEMI) Priority: Secondary Status: Acute (4) Healthcare-associated pneumonia Priority: Secondary Status: Acute (5) COPD exacerbation Priority: Secondary Status: Chronic (6) Diabetes mellitus Priority: Secondary Status: Chronic Qualifiers: Diabetes mellitus type: type 2 Diabetes mellitus complication status: without complication Diabetes mellitus intermediate insulin use: without intermediate use Qualified Code(s): E11.9 - Type 2 diabetes mellitus without complications (7) Sepsis Priority: Secondary Status: Acute Qualifiers: Sepsis type: sepsis due to unspecified organism Qualified Code(s): A41.9 - Sepsis, unspecified organism - Discharge Medications Allergies/Adverse Reactions: 3 Allergy/AdvReac Type Severity Reaction Status Date / Time metronidazole [From Flagyl] Allergy Agitated Verified 10/11/17 07:19 Oxycodone [From Percocet] Allergy Agitated Verified 10/11/17 07:19 codeine AdvReac See Verified 10/11/17 07:19 Comments Date of admission: 10/11/17 12:31 Primary care physician: Otilia Coffey DO Consults: 10/11/17 12:44 Consult to Pulmonology [CONS] Stat Consulting Provider: [facility] Reason for Consult: quetsions regarding bronchoscopy Time Notified: 12:40 Call Completed: Yes 10/12/17 11:49 Consult to Respiratory Therapy [CONS] Stat Reason for Consult: incentive spirometry, and flutter valve (recommended by Pulmonary) Call Completed: No Discharging clinician: Ranjeet Mcqueen - Patient Status Disposition: Condition: Fair - Discharge Instructions Follow Up With: Otilia Coffey DO [Primary Care Provider] - - Diet and Activity Activity: other Diet: other Hospital course: Ms. Rogers is a 87 year old female Patient with history of lung cancer, hypertension, post obstructive pneumonia recently, diabetes, COPD, hypertension , undernutrition, patient was brought into the emergency room due to unresponsiveness and hypoxic from assisted she had agonal breathing and obtunded she was placed on BiPAP after been on BiPAP for a while patient began to wake up and able to respond ABG was unremarkable. 7.35 initially with discuss patient to be in an ICU and when came down and saw patient and [employer]. Patient was septic from postobstructive pneumonia. White count about 30,000 and SBP in the 80s. She was started on broad spectrum antibiotics, vanc/Cefepime/Levaquin. Pulmonology was consulted to evaluate if patient would benefit from bronchoscopy. Patient based on multiple co morbidities, she is poor candidate. Family did agree to bipap for respiratory support but no other aggressive measures outside of that and antibiotics. Family had patient become DNR comfort care. AT 10 am I was notified that patient is unresponsive, likely passed. I evaluated patient, She was unresponsive to verbal and tactile stimuli. No spontaneous breathing. No heart sounds heard. Patient without pulse, corneal reflex not present. Patient pronounced at approx 10 am. Family was at bedside. - Time Spent with Patient Total time spent providing and/or coordinating discharge services: - Constitutional Vitals: Temp Pulse Resp BP Pulse Ox 97.4 F L 89 38 112/66 85 10/13/17 00:26 10/13/17 00:26 10/13/17 04:08 10/13/17 00:26 10/13/17 04:08 General appearance: Present: cachectic, underweight Exam: Gen: patient unresponsive CVS: absent heart sounds Lungs: absent lung soudns Neuro: no corneal reflex, no response to stimuli, pupils fixed.
[2017-10-13] MEDS ORDERED: Aminoglycoside Consult 1 EACH MC ONE (13:51)
== END 2017-10-13 13:52 | disposition expired | DRG 871 ==
LOC: EMEROO 07:17 → 2ANU 12:31
PROVIDERS: ADMIT Internal Medicine Cardiovascular Disease; ATTEND Internal Medicine